=== PATIENT | male | born 1965 | race Caucasian/White ===

== ENCOUNTER → 2017-05-04 11:30 | Outpatient (CLI) | payer MEDICARE, MEDICAID, SELFPAY ==
--- NOTE | 2017-05-04 11:39 | XR_ITS ---
XR knee LT 3V HISTORY: Post traumatic pain ITS.REASON: LEFT KNEE PAIN DUE TO INJURY ORDERING PHYSICIAN: Augustus Patton MD PATIENT AGE: 51 years COMPARISON: None FINDINGS: No fracture or dislocation. No lytic or blastic change. Normal mineralization. No significant arthritic changes evident. Very minimal spurring noted along the posterior patella. Joint spaces are well-preserved. No other significant findings IMPRESSION: No acute finding
== END ==
PROVIDERS: PCP Family Medicine; Visit Provider Family Medicine
DX: G89.21 Chronic pain due to trauma (principal)
CPT/HCPCS: 73562

== ENCOUNTER → 2017-07-14 11:46 | Outpatient (POV) | payer MEDICARE, MEDICAID, SELFPAY | PROVIDERS: Family Provider Family Medicine; PCP Family Medicine; Visit Provider Podiatrist | DX: Z00.00 Encounter for general adult medical examination without abnormal findings (principal) ==

== ENCOUNTER → 2017-08-07 09:21 | Outpatient (CLI) | payer MEDICARE, SELFPAY ==
--- NOTE | 2017-08-07 09:30 | XR_ITS ---
XR femur LT 2V CLINICAL INDICATION: Left femur pain ITS.REASON: LT HIP PAIN ORDERING PHYSICIAN: Augustus Patton MD PATIENT AGE: 51 years FINDINGS: No fracture or dislocation or significant anomalies evident. IMPRESSION: Negative left femur
--- NOTE | 2017-08-07 09:30 | XR_ITS ---
XR hip LT 2-3V w/pelvis HISTORY: ITS.REASON: LT HIP PAIN ORDERING PHYSICIAN: Augustus Patton MD PATIENT AGE: 51 years COMPARISON: 10/19/2010 FINDINGS: No fracture or dislocation is evident. No significant degenerative change. No lytic or blastic change. Unremarkable soft tissues Extensive postsurgical changes of the lumbosacral area as before. Incidental prostate calcifications IMPRESSION: No acute finding with no change in the pelvis and left hip
== END ==
PROVIDERS: PCP Family Medicine; Visit Provider Family Medicine
DX: M25.552 Pain in left hip (principal)
CPT/HCPCS: 73502; 73552

== ENCOUNTER 2018-08-22 10:00 | Outpatient (RCR) | payer MEDICARE, SELFPAY ==
--- NOTE | 2018-05-03 10:10 | HMH.PTOPWND ---
Rehab Outpt Wound Evaluation Rehab OP Wound Evaluation Start: 05/03/18 09:24 Freq: Status: Active Protocol: Document 05/03/18 09:57 ANDREEA (Rec: 05/03/18 10:10 ANDREEA [id number]) Electronically Signed By Fransisco Noguera, PT 05/03/18 09:57 Subjective/History History History Pt is 52 yowm who presents with right anterior knee wound x ~3-4 mos after wearing my leg brace way too long one day . He reports he was using his own supply of santyl on his wound, which was helping, but then began to make the wound larger. His wound appears superficial at this point an has minimal serous drainage. He has hx of partial paraplegia requiring a long leg brace at all times for ambulation and has hx of wounds in the past that all healed well. Wound Eval Wound Right Anterior Knee Wound Type Abrasion Is This a Chronic Wound Yes Wound Length (cm) 2.2 Wound Width (cm) 5.0 Wound Bed Appearance [place] Percentage Granulated (%) 100 Wound Margins Description Well Defined Surrounding Tissue Appearance [place] Drainage Description Serous Drainage Amount Small Packing Type Collagen Primary Dressing Composite Wound Debridement Method Forceps Wound Debridement Amount of Tissue Minimal Removed Dressing Change Patient Tolerance Tolerated Well Wound Problems/Impairments Impairments Problems/Impairmments Increased Edema Wound Care Needs Impaired Self Care/Self Management Prognosis Rehab Potential Good Clinical Impression Consistent with Diagnosis Yes Short Term Goals Decrease Wound Area Yes: by 25% Patient to be Ind w/ Home Wound Care/ Yes Dressing Changes Care Home Goals Number of Weeks 8 Decrease Wound Area Yes: by 75% Patient to be Ind w/ Home Wound Care/ Yes Dressing Changes Outpatient Therapy Plan of Care Treatment Plan May Include Therapeutic Exercise Including Home Yes Exercise Program Manual Therapy Techniques Yes Neuromuscular Re-education Yes Orthotics/Bracing/Splinting Yes Wound Care
--- NOTE | 2018-06-26 11:02 | HMH.RHREAS ---
Rehab Reassessment Rehab OP Re-assessment Start: 06/26/18 10:59 Freq: Status: Active Protocol: Document 06/26/18 10:59 ANDREEA (Rec: 06/26/18 11:02 ANDREEA [id number]) Electronically Signed By Fransisco Noguera, PT 06/26/18 10:59 Rehab Re-assessment Subjective Subjective Pt with no new c/o today, feels his right knee wound is improving. Objective Objective Notes Rioght knee wound: Length = 1. 6 cm, Width = 5.2 cm. Assessment Progress Assessment Progressing as Expected Assessment Notes No purulent drainage noted, healing steadily with improving granulation tissue. Patient goals met none Goals Not Met ST,2 LT,2 Revised Goals none Plan Plan Continue per initial POC Frequency of Therapy 1x/wk Duration of therapy 8 wks. Time and Billing Re-Eval Time 15 Re-Eval Billing Units 1 PHYSICIAN CERTIFICATION: I certify the specified therapy services for Temo Poon are required, authorized, and reviewed every 30 days.
--- NOTE | 2018-08-01 13:28 | HMH.RHREAS ---
Rehab Reassessment Rehab OP Re-assessment Start: 06/26/18 10:59 Freq: Status: Active Protocol: Document 08/01/18 13:26 ANDREEA (Rec: 08/01/18 13:28 ANDREEA [id number]) Electronically Signed By Fransisco Noguera, PT 08/01/18 13:26 Rehab Re-assessment Subjective Subjective Pt reports no new c/o today, feels like his wound is not draining as much. Objective Objective Notes Right anterior knee wound: Length= 2.0 cm, Width= 6.3 cm. Assessment Progress Assessment Progressing as Expected Assessment Notes No purulent drainage noted, healing steadily with improving granulation tissue, no maceration noted. Patient goals met none Goals Not Met ST,2 LT,2 Revised Goals none Plan Plan Continue per initial POC Frequency of Therapy 1x/wk Duration of therapy 8 wks. Time and Billing Re-Eval Time 15 Re-Eval Billing Units 1 PHYSICIAN CERTIFICATION: I certify the specified therapy services for Temo Antonio Poon are required, authorized, and reviewed every 30 days.
== END 2018-08-22 10:05 | disposition home or self-care (01) ==
LOC: PT 10:00
PROVIDERS: Visit Provider Family Medicine
DX: S81.001D Unspecified open wound, right knee, subsequent encounter (principal)
CPT/HCPCS: 97162; 97164; 97597

== ENCOUNTER 2019-03-06 23:54 | Inpatient (IN) ==
--- NOTE | 2019-03-07 00:03 | Emergency Department Note ---
ED Disposition Clinical Impression: Acute exacerbation of chronic obstructive airways disease, RBBB, Obesity (BMI 30.0-34.9), SIRS (systemic inflammatory response syndrome) Community acquired pneumonia Qualifiers: Laterality: unspecified laterality Qualified Code(s): J18.9 - Pneumonia, unspecified organism Disposition: Admitted As Inpatient Condition on Discharge: Serious - Critical Care Critical Care Time: No Attestation: On , the high probability of a clinically significant, sudden or life threatening deterioration of the following system(s) required my full and direct attention, intervention and personal management. The time I documented below is in addition to time spent performing reported procedures but includes the following listed in this critical care notation. Medical Decision Making - Medical Records Medical records reviewed: Yes: I reviewed the patient's medical records. - Sp Inquiry Pt receiving controlled substance: No Vital Signs: 03/07/19 00:03 Temperature 98.0 F Temperature Source Oral Pulse Rate [Right Brachial] 112 H Respiratory Rate 26 H Blood Pressure [Right Arm] 188/102 H Blood Pressure Mean [Right Arm] 130 Blood Pressure Source [Right Arm] Manual Cuff/ Palpation 02 Sat by Pulse Oximetry 79 L Oxygen Delivery Method Room Air - Lab Data Lab results reviewed: Yes: I reviewed the patient's lab results. Lab Results 03/06/19 23:50: WBC 12.2 H, RBC 6.20, Hgb 17.6, Hct 57.2 H, MCV 92.3, MCH 28.4, MCHC 30.8 L, RDW 14.1, Plt Count 199, MPV 7.9, Neut % (Auto) 68.9, Lymph % (Auto) 21.4, [place] % (Auto) 8.2, Eos % (Auto) 0.8, Baso % (Auto) 0.7, Neut # (Auto) 8.4 H, Lymph # (Auto) 2.6, [place] # (Auto) 1.0, Eos # (Auto) 0.1, Baso # (Auto) 0.1 03/06/19 23:50: Sodium 142, Potassium 3.4 L, Chloride 102, Carbon Dioxide 32, Anion Gap 11.4, BUN 12, Creatinine 0.59 L, Estimated Creat Clear 214, Estimated GFR 145, Est GFR ( Amer) 175, Glucose 133 H, Calcium 8.1 L, Troponin I < 0.02 03/06/19 23:50: B-Natriuretic Peptide 18 03/06/19 23:50: Lactate 1.1 03/07/19 00:00: Total Bilirubin 0.2, Direct Bilirubin 0.1, Indirect Bilirubin 0.1, AST 27, ALT 26, Alkaline Phosphatase 98, Total Protein 7.1, Albumin 3.0 L 03/07/19 00:40: Urine Color Yellow, Urine Appearance Slightly cloudy, Urine pH 6.0, Ur Specific [place] >= 1.030, Urine Protein 3+, Urine Glucose (UA) 3+, Urine Ketones Negative, Urine Blood 1+, Urine Nitrate Positive, Urine Bilirubin Negative, Urine Urobilinogen 0.2, Ur Leukocyte Esterase Negative, Urine RBC 10- 20, Urine WBC 3-5, Urine Bacteria 1+, Urine Mucus 1+ 03/07/19 01:43: Influenza Type A Ag Negative, Influenza Type B Ag Negative 03/07/19 01:49: Specimen Source Right radial, O2 % 32, ABG pH 7.36, ABG pCO2 60.1 H, ABG pO2 44.2 L, ABG HCO3 33.1 H, ABG Total CO2 35.0 H, ABG O2 Saturation 83 L*, ABG Base Excess 7.6 H, Antonio Test Acceptable Result diagrams: 03/06/19 23:50 03/06/19 23:50 Orders (Tests/Meds): ED MEDICATIONS Generic Name Dose Route Start Last Admin Trade Name Randyq PRN Reason Stop Dose Admin Azithromycin 500 mg/ Sodium 250 mls @ 250 mls/hr 03/07/19 02:00 03/07/19 02:45 Chloride IV 03/21/19 01:59 250 mls/hr Q24H JUNE Administration Protocol Ceftriaxone Sodium 1 gm/ 50 mls @ 100 mls/hr 03/07/19 02:00 03/07/19 01:51 Sodium Chloride IV 03/21/19 01:59 100 mls/hr Q24H JUNE Administration Protocol Ioversol 70 ml 03/07/19 03:06 03/07/19 03:07 Rad-Optiray 240 100ml Vial IV 03/07/19 03:07 70 ml ONCE ONE Administration Levalbuterol HCl 1.25 mg 03/07/19 02:14 03/07/19 02:20 Xopenex 1.25mg/3ml Neb IH 04/06/19 02:13 1.25 mg TIDP PRN Administration Shortness Of Breath Sodium Chloride 10 ml 03/07/19 03:06 03/07/19 03:07 Rad-Saline Flush 10ml Syringe IV 03/07/19 03:07 10 ml ONCE ONE Administration Discontinued Medications Generic Name Dose Route Start Last Admin Trade Name Freq PRN Reason Stop Dose Admin Hydrocodone Bitart/Acetaminophen 1 tab 03/07/19 01:47 03/07/19 01:50 [place] 7.5/325mg Tablet PO 03/07/19 01:48 1 tab ONCE ONE Administration Aspirin 324 mg 03/06/19 23:56 03/06/19 23:58 Aspirin 81mg Chewable Tablet PO 03/06/19 23:57 324 mg ONCE ONE Administration Furosemide 40 mg 03/06/19 23:56 03/06/19 23:59 Lasix 40mg/4ml Vial IV 03/06/19 23:57 40 mg ONCE ONE Administration Methylprednisolone Sodium Succinate 125 mg 03/07/19 01:47 03/07/19 01:50 Solu-Medrol 125mg/2ml Vial IV 03/07/19 01:48 125 mg ONCE ONE Administration Nitroglycerin 1 gm 03/06/19 23:56 03/06/19 23:59 Nitroglycerin 1 Inch Oint Udp TD 03/06/19 23:57 1 gm ONCE ONE Administration ORDERS Category Date Time Status Troponin I Q3H Lab 03/07/19 03:00 Ordered Troponin I Q3H Lab 03/07/19 06:00 Ordered Blood Culture Stat Micro 03/06/19 23:50 Received - Radiology Data #1 Image(s): Chest Image Reviewed: Yes I reviewed the patient's radiology image Preliminary Findings: Abnormal (chf) - CT Data CT Scan: Chest Time Received: 04:[address] Reviewed: Yes: I have viewed the radiologist's interpretation Preliminary Findings: Abnormal (see report ) - ECG Data Tracing #1 Normal Sinus Rhythm: Yes Ischemic changes: non-specific ST-T wave changes Conduction abnormalities present: RBBB - MELBA Score for Non-Stemi Age of Patient: 50-59 years old Heart Rate: 110-149 bpm Systolic Blood Pressure: 160-199 mmHg Serum Creatinine: 0.40-0.79 mg/dl CHF [place] Class: I-No CHF Other Risk Factors: None Non-Stemi Risk Score: 79 Resp/SOB HPI - General Chief Complaint: Chest Pain Stated Complaint: chest pain Time Seen by Provider: 03/07/19 00:10 Mode of Arrival: Ambulatory Source of Information: Patient, Medical Record Limitations: No Limitations - History of Present Illness pt with progressive sob with chest pain which started tonight - hx of copd MD Complaint: shortness of breath Onset (ago): hour(s) Severity: moderate Consistency/Duration: intermittent Known history of: COPD Associated symptoms: denies other symptoms - Related Data Home oxygen amount: none Home Medications Medication Instructions Recorded Confirmed alprazolam 1 mg tablet 1 mg PO NEEDED PRN 15 Days tab 10/12/17 03/07/19 amlodipine 10 mg tablet 10 mg PO DAILY 30 Days tab 10/12/17 03/07/19 dutasteride 0.5 mg capsule 1 tab PO DAILY 30 Days 10/12/17 03/07/19 gabapentin 300 mg capsule 300 mg PO DAILY 30 Days cap 10/12/17 03/07/19 glipizide 5 mg tablet 5 mg PO DAILY 30 Days tab 10/12/17 03/07/19 labetalol 100 mg tablet 100 mg PO DAILY 30 Days tab 10/12/17 03/07/19 lisinopril 40 mg tablet 40 mg PO DAILY 30 Days tab 10/12/17 03/07/19 methadone 10 mg tablet 20 mg PO Q4H 30 Days tab 10/12/17 03/07/19 omeprazole 40 mg capsule,delayed 40 mg PO DAILY 30 Days cap 10/12/17 03/07/19 release tiotropium bromide 18 mcg capsule 1 spray INHALATION DAILY 30 Days 10/12/17 03/07/19 with inhalation device Allergies Allergy/AdvReac Type Severity Reaction Status Date / Time butorphanol [From STADOL] Allergy Unknown Verified 03/07/19 00:09 ketorolac [From TORADOL] Allergy Unknown Verified 03/07/19 00:09 morphine [MORPHINE] Allergy Unknown Verified 03/07/19 00:09 - Well's Criteria PE Score Clinical signs/symptoms of DVT: No PE is #1 diagnosis or equally likely: Yes Heart rate is > 100: Yes Immobile at least 3 days, or surgery in past 4 wks: No Previously, obj. diagnosed PE or DVT: No Hemoptysis: No Malignancy w/Rx within 6mo, or palliative: No PE Score: 4 [facility] History - Hepatitis A Screen Attestation statement:: This patient has been screened for Hepatitis A risk factors. I have reviewed the patient's past medical history: Yes Medical History: Reports:: Anxiety, Diabetes Mellitus Type 2, Hypertension Other Medical History: Reports: Arthritis Comment: Paraplegic Laterality Cases: Amputation: Yes Fractures: No Comment: Back surgeries x6, Bilat knee scope, bilat shoulder scope - Social History Smoking Status: Former smoker Alcohol Intake: former Alcohol Intake Frequency:: other Substance Use Type: denies use Occupational Status: retired - Psychiatric History Pschychiatric History:: Reports:: Anxiety Family Hx:: Stroke, Hypertension, Diabetes ROS Obtained: Yes All systems reviewed & no additional complaints - Constitutional Constitutional: Denies fever(s) - Eyes Eyes: Denies change in vision - ENT Ears, Nose, Mouth, and Throat: Denies pain with swallowing, Denies sore throat - Cardiovascular Cardiovascular: Reports as per HPI, Reports chest pain, Reports dyspnea - Respiratory Respiratory: Yes cough, No coughing up blood - Gastrointestinal Gastrointestingal: Denies: vomiting - Genitourinary Male Genitourinary: Denies hematuria - Musculoskeletal Musculoskeletal: Denies joint pain - Integumentary/Breasts Skin/Breast: Denies rash - Neurologic Neurologic: Denies seizure-like activity Physical Exam - General General appearance: alert - Head Head exam: normocephalic - Eye Eye exam: Present: PERRL, EOMI. Absent: scleral icterus - ENT ENT exam: Present: mucous membranes dry - Neck Neck exam: Present: trachea midline - Respiratory Respiratory exam: Present: wheezes, other (rhochi ). Absent: respiratory distress - Cardiovascular Cardiovascular exam: Present: regular rate, systolic murmur - Abdominal Exam Abdominal exam: Present: soft - Extremities Exam Extremities exam: Present: pedal edema - Neurological Exam Neurological exam: Present: alert, CN II-XII intact - Psychiatric Psychiatric exam: Present: normal affect - Skin Skin exam: Absent: rash
[2019-03-07 00:20] LABS: Basophils # 0.1 K/mm3 (0-0.2); Basophils % 0.7 % (0.1-2.0); Eosinophils # 0.1 K/mm3 (0.0-0.4); Eosinophils % 0.8 % (0.1-12.0); Hematocrit 57.2 % (42.0-52.0); Hemoglobin 17.6 g/dL (14.1-18.0); Lymphocytes # 2.6 K/mm3 (0.7-4.5); Lymphocytes % 21.4 % (10-50); Mean Corpuscular HGB Conc 30.8 g/dL (31.8-35.4); Mean Corpuscular Volume 92.3 fl (80-94); Mean Platelet Volume 7.9 fl (7.4-10.4); Monocytes % 8.2 % (1.7-9.3); Neutrophils # 8.4 K/mm3 (1.8-7.8); Neutrophils % 68.9 % (37.0-80.0); Platelet Count 199 K/mm3 (142-424); Red Cell Distribution Width 14.1 % (11.5-17.5); White Blood Count 12.2 K/mm3 (4.8-10.8)
[2019-03-07 00:32] LABS: Anion Gap 11.4 mEq/L (5-15); Blood Urea Nitrogen 12 mg/dL (7-18); Calcium 8.1 mg/dL (8.5-10.1); Carbon Dioxide 32 mmol/L (21.0-32.0); Chloride 102 mmol/L (98-107); Glucose 133 mg/dL (74-106); Sodium 142 mmol/L (136-145)
[2019-03-07 00:52] LABS: Microscopic, Urine URINE MICROSCOPIC (MICROSCOPIC)
[2019-03-07 00:54] LABS: Bilirubin,Urine Negative (Negative); Blood, Urine 1+ (Negative); Color,Urine YELLOW (Yellow); Glucose,Urine (UA) 3+ (Negative); Ketones,Urine Negative (Negative); Leukocyte Esterase,Urine Negative (Negative); Protein,Urine 3+ (Negative); Specific Gravity, Urine >= 1.030 (1.005-1.030); Urobilinogen,Urine 0.2 EU/dl (0.2)
[2019-03-07 00:55] LABS: Appearance,Urine Slightly Cloudy (Clear)
[2019-03-07 01:01] LABS: Bacteria,Urine 1+ /lpf; Mucus,Urine 1+ /lpf
[2019-03-07 02:08] LABS: Bilirubin,Direct 0.1 mg/dL (0.0-0.2); Bilirubin,Indirect 0.1 mg/dL (0.0-0.9); Bilirubin,Total 0.2 mg/dL (0.2-1.0); Total Protein,Serum 7.1 gm/dL (6.4-8.2)
[2019-03-07 02:09] LABS: ABG Base Excess 7.6 mmol/L (-2.4-2.3); ABG HCO3 33.1 mmhg (22.0-26.0); ABG Oxygen Saturation 83 % (90-100); ABG PH 7.36 mmol/L (7.35-7.45)
[2019-03-07 02:10] LABS: Oxygen 32 %
[2019-03-07 02:11] LABS: Allen's Test ACCEPTABLE
[2019-03-07 02:12] LABS: ABG PCO2 60.1 mmhg (35.0-45.0)
[2019-03-07 02:13] LABS: ABG PO2 44.2 mmhg (80-100)
[2019-03-07 06:20] LABS: Anion Gap 7.8 mEq/L (5-15)
[2019-03-07 06:23] LABS: Basophils % 0.3 % (0.1-2.0); Eosinophils % 0.1 % (0.1-12.0); Hematocrit 56.7 % (42.0-52.0); Hemoglobin 17.7 g/dL (14.1-18.0); Lymphocytes # 0.8 K/mm3 (0.7-4.5); Lymphocytes % 6.2 % (10-50); Mean Corpuscular HGB Conc 31.3 g/dL (31.8-35.4); Mean Corpuscular Volume 90.8 fl (80-94); Mean Platelet Volume 7.8 fl (7.4-10.4); Monocytes # 0.4 K/mm3 (0.1-1.0); Monocytes % 3.2 % (1.7-9.3); Neutrophils # 11.4 K/mm3 (1.8-7.8); Neutrophils % 90.2 % (37.0-80.0); Platelet Count 198 K/mm3 (142-424); Red Blood Count 6.24 M/mm3 (4.60-6.20); Red Cell Distribution Width 13.9 % (11.5-17.5); White Blood Count 12.6 K/mm3 (4.8-10.8)
--- NOTE | 2019-03-07 07:09 | History & Physical Report ---
*Admission Date: 03/07/19 *Chief complaint: Shortness of breath and chest pain *History of present illness: 53-year-old male with hypertension, hyperlipidemia, uncontrolled diabetes presented to the emergency department from home via private vehicle with progressive dyspnea and chest pain. Patient reports he had been feeling ill during the day with symptoms of an upper respiratory infection to include cough with yellow-michelle sputum production, low-grade fevers, chills and increasing dyspnea. His dyspnea did not improve despite use of home nebulized albuterol and Ventolin inhaler. During the day he also began to develop chest tightness that was nonradiating. Ultimately he became so short of breath he requested to go to the emergency department where he was transported by his . Patient believes in route he lost consciousness for no more than a minute. Once he arrived in the emergency department he underwent evaluation. In the emergency department patient's chest x-ray showed what appeared to be bilateral pneumonia and he was hypoxemic on a blood gas. Patient met criteria for treatment of severe sepsis which was initiated. Patient was diuresed with Lasix and this produced about 2 L of urine which patient feels like improved his breathlessness. Because of his oxygen requirement he was placed on Vapotherm and remains on that at this time. At present he is feeling better than when he presented. 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 Laterality Cases: Bilateral: Tonsillectomy Amputation: Yes Fractures: No Comment: Lumbar spine surgery due to traumatic lumbar fractures - *Social History Educational Level: Completed College Smoking Status: Former smoker Tobacco Type: cigarettes # Packs/Day (cigarettes): 1 Alcohol Intake: former Alcohol Intake Frequency:: other Substance Use Type: denies use *Occupational Status:: employed, retired Housing: house Household Members: spouse *Travel in the last 8 weeks: Inside the [place] - Psychiatric History Pschychiatric History:: Reports:: Anxiety Family Hx:: Stroke, Hypertension, Diabetes Review of Systems - Review of Systems Review of systems:: pertinent systems reviewed and negative unless documented below - *Neurologic Denies seizure-like activity Meds Home Medications Medication Instructions Recorded Confirmed Type alprazolam 1 mg tablet 1 mg PO NEEDED PRN 15 Days tab 10/12/17 03/07/19 History amlodipine 10 mg tablet 10 mg PO DAILY 30 Days tab 10/12/17 03/07/19 History dutasteride 0.5 mg capsule 1 tab PO DAILY 30 Days 10/12/17 03/07/19 History gabapentin 300 mg capsule 300 mg PO DAILY PRN 30 Days cap 10/12/17 03/07/19 History labetalol 100 mg tablet 100 mg PO DAILY 30 Days tab 10/12/17 03/07/19 History lisinopril 40 mg tablet 40 mg PO DAILY 30 Days tab 10/12/17 03/07/19 History methadone 10 mg tablet 20 mg PO Q4H 30 Days tab 10/12/17 03/07/19 History omeprazole 40 mg capsule,delayed 40 mg PO DAILY 30 Days cap 10/12/17 03/07/19 History release tiotropium bromide 18 mcg capsule 1 spray INHALATION DAILY 30 Days 10/12/17 03/07/19 History with inhalation device Insulin NPH Hum/Reg Insulin Hm 20 unit SQ DAILY 03/07/19 03/07/19 History [Novolin 70-30 Flexpen] Allergies Allergy/AdvReac Type Severity Reaction Status Date / Time butorphanol [From STADOL] Allergy Unknown Verified 03/07/19 00:09 ketorolac [From TORADOL] Allergy Unknown Verified 03/07/19 00:09 morphine [MORPHINE] Allergy Unknown Verified 03/07/19 00:09 Exam Vital signs and Labs for Last 24 Hours: Temp Pulse Resp BP Pulse Ox 97.6 F 99 H 20 163/105 H 97 03/07/19 04:59 03/07/19 05:51 03/07/19 04:59 03/07/19 04:59 03/07/19 05:51 Laboratory Results - last 24 hr 03/06/19 23:50: WBC 12.2 H, RBC 6.20, Hgb 17.6, Hct 57.2 H, MCV 92.3, MCH 28.4, MCHC 30.8 L, RDW 14.1, Plt Count 199, MPV 7.9, Neut % (Auto) 68.9, Lymph % (Auto) 21.4, [place] % (Auto) 8.2, Eos % (Auto) 0.8, Baso % (Auto) 0.7, Neut # (Auto) 8.4 H, Lymph # (Auto) 2.6, [place] # (Auto) 1.0, Eos # (Auto) 0.1, Baso # (Auto) 0.1 03/06/19 23:50: Sodium 142, Potassium 3.4 L, Chloride 102, Carbon Dioxide 32, Anion Gap 11.4, BUN 12, Creatinine 0.59 L, Estimated Creat Clear 214, Estimated GFR 145, Est GFR ( Amer) 175, Glucose 133 H, Calcium 8.1 L, Troponin I < 0.02 03/06/19 23:50: B-Natriuretic Peptide 18 03/06/19 23:50: Lactate 1.1 03/07/19 00:00: Total Bilirubin 0.2, Direct Bilirubin 0.1, Indirect Bilirubin 0.1, AST 27, ALT 26, Alkaline Phosphatase 98, Total Protein 7.1, Albumin 3.0 L 03/07/19 00:40: Urine Color Yellow, Urine Appearance Slightly cloudy, Urine pH 6.0, Ur Specific [place] >= 1.030, Urine Protein 3+, Urine Glucose (UA) 3+, Urine Ketones Negative, Urine Blood 1+, Urine Nitrate Positive, Urine Bilirubin Negative, Urine Urobilinogen 0.2, Ur Leukocyte Esterase Negative, Urine RBC 10- 20, Urine WBC 3-5, Urine Bacteria 1+, Urine Mucus 1+ 03/07/19 01:43: Influenza Type A Ag Negative, Influenza Type B Ag Negative 03/07/19 01:49: Specimen Source Right radial, O2 % 32, ABG pH 7.36, ABG pCO2 60.1 H, ABG pO2 44.2 L, ABG HCO3 33.1 H, ABG Total CO2 35.0 H, ABG O2 Saturation 83 L*, ABG Base Excess 7.6 H, Antonio Test Acceptable 03/07/19 03:40: Troponin I 0.03 03/07/19 05:48: Troponin I 0.04 03/07/19 05:48: WBC 12.6 H, RBC 6.24 H, Hgb 17.7, Hct 56.7 H, MCV 90.8, MCH 28.4, MCHC 31.3 L, RDW 13.9, Plt Count 198, MPV 7.8, Neut % (Auto) 90.2 H, Lymph % (Auto) 6.2 L, [place] % (Auto) 3.2, Eos % (Auto) 0.1, Baso % (Auto) 0.3, Neut # (Auto) 11.4 H, Lymph # (Auto) 0.8, [place] # (Auto) 0.4, Eos # (Auto) 0.0, Baso # (Auto) 0.0 03/07/19 05:48: Sodium 142, Potassium 3.8, Chloride 101, Carbon Dioxide 37 H, Anion Gap 7.8, BUN 10, Creatinine 0.69 L, Estimated Creat Clear 183, Estimated GFR 121, Est GFR ( Amer) 146, Glucose 192 H D, Calcium 8.0 L, Magnesium 1.4 I & O for Last 24 hours: Intake & Output 03/04/19 03/05/19 03/06/19 03/07/19 11:59 11:59 11:59 11:59 Intake Total 560 / 560 Output Total 2300 / 2300 Balance -1740 / -1740 Weight 225 lb Narrative: Patient is in bed and appears comfortable and is not showing any signs of respiratory distress. External ears are normal. Pupils are reactive to light. Oropharynx is moist. Neck is without carotid bruits or jugular venous distention. Lungs have distant breath sounds primarily on the right with rhonchi at both bases and mixed wheezing bilaterally. Heart has a regular rate and rhythm with no murmur auscultated. Abdomen is soft and obese. Extremities are warm to the touch and compression stockings are in place. There is no edema. Assessment and Plan (1) Acute exacerbation of chronic obstructive airways disease Current visit: Yes Status: Acute Category: Medical Code(s): J44.1 - Chronic obstructive pulmonary disease with (acute) exacerbation Continue IV steroids and IV Rocephin and azithromycin. Repeat chest x-ray later today to assess the pneumonia. As patient feels like he is improved significantly since diuresis there may be an element of congestive heart failure given his chest x-ray the abnormal appearance. (2) Community acquired pneumonia Current visit: Yes Status: Acute Qualifiers: Laterality: unspecified laterality Qualified Code(s): J18.9 - Pneumonia, unspecified organism Category: Medical Code(s): J18.9 - Pneumonia, unspecified organism (3) Obesity (BMI 30.0-34.9) Current visit: Yes Status: Acute Category: Medical Code(s): E66.9 - Obesity, unspecified (4) RBBB Current visit: Yes Status: Acute Category: Medical Code(s): I45.10 - Unspecified right bundle-branch block (5) SIRS (systemic inflammatory response syndrome) Current visit: Yes Status: Acute Category: Medical Code(s): R65.10 - Systemic inflammatory response syndrome (SIRS) of non-infectious origin without acute organ dysfunction (6) Monoplegia of right lower extremity Current visit: Yes Status: Acute Category: Medical Code(s): G83.11 - Monoplegia of lower limb affecting right dominant side (7) Diabetes mellitus with hyperglycemia Current visit: Yes Status: Acute Category: Medical Code(s): E11.65 - Type 2 diabetes mellitus with hyperglycemia Continue home regimen of insulin (8) Cigarette smoker Current visit: Yes Status: Acute Category: Medical Code(s): F17.210 - Nicotine dependence, cigarettes, uncomplicated (9) Hypertension Current visit: Yes Status: Acute Category: Medical Code(s): I10 - Essential (primary) hypertension (10) Hyperlipidemia Current visit: Yes Status: Acute Category: Medical Code(s): E78.5 - Hyperlipidemia, unspecified (11) Chronic anxiety Current visit: Yes Status: Acute Category: Medical Code(s): F41.9 - Anxiety disorder, unspecified (12) Chronic pain syndrome Current visit: Yes Status: Acute Category: Medical Code(s): G89.4 - Chronic pain syndrome (13) Pain, 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 Current visit: Yes Status: Acute Category: Medical Code(s): G89.21 - Chronic pain due to trauma Continue use of methadone.
[2019-03-07 08:09] LABS: Lymphocytes % 5 % (10-50); Monocytes % 4 % (2-9); Neutrophils % 89 % (42-76); RBC Morphology Normal; Total Cells Counted 100
--- NOTE | 2019-03-07 10:01 | Pharmacy Consult Notes ---
[facility] Pharmacy VTE Monitoring - Patient Demographics Admission date: 03/06/19 Report Date: 03/07/19 Time: 10:01 Allergies/Adverse Reactions: Patient Allergies butorphanol [From STADOL] Allergy (Unknown, Verified 03/07/19 00:09) ketorolac [From TORADOL] Allergy (Unknown, Verified 03/07/19 00:09) morphine [MORPHINE] Allergy (Unknown, Verified 03/07/19 00:09) Height: 1.75 m Weight: 102.058 kg Patient Problems: Current Active Problems Acute exacerbation of chronic obstructive airways disease (Acute) RBBB (Acute) Obesity (BMI 30.0-34.9) (Acute) Community acquired pneumonia (Acute) SIRS (systemic inflammatory response syndrome) (Acute) Monoplegia of right lower extremity (Acute) Diabetes mellitus with hyperglycemia (Acute) Cigarette smoker (Acute) Hypertension (Acute) Hyperlipidemia (Acute) Chronic anxiety (Acute) Chronic pain syndrome (Acute) Pain, 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 (Acute) - VTE Risk Labs: VTE Related Lab Results Hgb 17.7 g/dL (14.1-18.0) 03/07/19 05:48 Hct 56.7 % (42.0-52.0) H 03/07/19 05:48 Plt Count 198 K/mm3 (142-424) 03/07/19 05:48 BUN 10 mg/dL (7-18) 03/07/19 05:48 Creatinine 0.69 mg/dL (0.70-1.30) L 03/07/19 05:48 Estimated Creat Clear 183 mL/min (50-200) 03/07/19 05:48 VTE Score: 5 VTE Risk Level: Low Risk - Prophylaxis VTE Prophylaxis Ordered?: Yes Types of VTE Prophylaxis: TEDS Knee High Location of Applied Device: Bilateral Lower Extremeties - VTE Diagnosis Confirmed Treatment or plan recommended: Continue Current Treatment
--- NOTE | 2019-03-07 16:42 | Cardiology Report ---
APPROVED REPORT EXAM: Comprehensive 2D, Doppler, and color-flow Echocardiogram Quilting Supervisor: Joyce Giraldo CRT Ht: 5 ft 9 in Wt: 225lbs BSA: 2.17 BP: 163/105 mmHg Indications: Chest Pain, COPD, Murmur, Shortness of Breath 2D Dimensions LVOT 1.99 cm (M/F) 1.5-2.5 M-Mode Dimensions RVDd 2.46 cm (0.9-2.6)LVDd 6.42 cm (3.5-5.7) LVDs 5.29 cm (3.5-5.7)IVSd 1.89 cm (0.6-1.1) PWd 0.85 cm (0.6-1.1)EF (Teich) 35.80% FS 17.60% EDV (Teich) 210.00 mL ESV (Teich) 134.80 mL Left Ventricle Left atrium is mildly enlarged, left ventricle is normal size, mild concentric left ventricular hypertrophy, visually estimated ejection fraction 55% with no regional wall motion abnormality. Diastolic parameters are inconclusive. Right Ventricle Right atrium right ventricular mildly enlarged with normal contractility. Aortic Valve Aortic valve is thickened and calcified without aortic stenosis or aortic insufficiency. Mitral Valve Mitral valve is grossly normal, there is mild mitral regurgitation. Tricuspid Valve Tricuspid valve is grossly normal, there is mild tricuspid regurgitation. Pulmonic Valve Pulmonic valve is poorly visualized. Great Vessels Aortic root is normal size. Pericardium No significant pericardial effusion noted. Conclusion 1. Mild biatrial enlargement, normal left ventricular size, mild concentric left ventricular hypertrophy, visually estimated ejection fraction 55% with no regional wall motion abnormality, grade 1 diastolic dysfunction seen without tissue Doppler evidence of raise left atrial pressure. 2. Mildly enlarged right ventricle with normal contractility. 3. Mild mitral and tricuspid regurgitation. 4. No significant pericardial effusion noted. Electronically signed by : Monty Syed, 03/07/2019 16:42:17
[2019-03-08 06:20] LABS: Basophils # 0.1 K/mm3 (0-0.2); Basophils % 0.3 % (0.1-2.0); Eosinophils % 0.2 % (0.1-12.0); Hematocrit 52.5 % (42.0-52.0); Hemoglobin 16.9 g/dL (14.1-18.0); Lymphocytes # 1.3 K/mm3 (0.7-4.5); Lymphocytes % 7.6 % (10-50); Mean Corpuscular HGB Conc 32.2 g/dL (31.8-35.4); Mean Corpuscular Volume 91.4 fl (80-94); Mean Platelet Volume 8.9 fl (7.4-10.4); Monocytes % 5.6 % (1.7-9.3); Neutrophils % 86.4 % (37.0-80.0); Platelet Count 220 K/mm3 (142-424); Red Blood Count 5.75 M/mm3 (4.60-6.20); Red Cell Distribution Width 13.8 % (11.5-17.5); White Blood Count 17.3 K/mm3 (4.8-10.8)
--- NOTE | 2019-03-08 06:28 | Progress Note ---
Internal Medicine - PN: Subj *Date: 03/08/19 *Time: 06:25 Interval history: Patient reports improvement in his shortness of breath overnight. He believes getting some quality rest as well as cough that is produced large amounts of green sputum intermittently. He remains on Vapotherm. Pulse rate has normalized. Exam Vital signs and Labs for Last 24 Hours: Temp Pulse Resp BP Pulse Ox 98.2 F 89 22 134/96 H 93 L 03/08/19 04:00 03/08/19 06:01 03/08/19 04:00 03/08/19 04:00 03/08/19 06:01 Laboratory Results - last 24 hr 03/07/19 05:21: POC Glucose 181 H 03/07/19 05:48: Troponin I 0.04 03/07/19 05:48: Mycoplasma pneumon IgM Non-reactive 03/07/19 05:48: WBC 12.6 H, RBC 6.24 H, Hgb 17.7, Hct 56.7 H, MCV 90.8, MCH 28.4, MCHC 31.3 L, RDW 13.9, Plt Count 198, MPV 7.8, Neut % (Auto) 90.2 H, Lymph % (Auto) 6.2 L, [place] % (Auto) 3.2, Eos % (Auto) 0.1, Baso % (Auto) 0.3, Neut # (Auto) 11.4 H, Lymph # (Auto) 0.8, [place] # (Auto) 0.4, Eos # (Auto) 0.0, Baso # (Auto) 0.0, Total Counted 100, Neutrophils % (Manual) 89 H, Band Neutrophils % 2.0, Lymphocytes % (Manual) 5 L, Monocytes % (Manual) 4, Platelet Estimate Normal, RBC Morphology Normal 03/07/19 05:48: Sodium 142, Potassium 3.8, Chloride 101, Carbon Dioxide 37 H, Anion Gap 7.8, BUN 10, Creatinine 0.69 L, Estimated Creat Clear 183, Estimated GFR 121, Est GFR ( Amer) 146, Glucose 192 H D, Calcium 8.0 L, Magnesium 1.4 03/07/19 08:14: Lactate 1.0 03/07/19 10:45: POC Glucose 233 H 03/07/19 16:18: POC Glucose 204 H 03/07/19 20:38: POC Glucose 189 H 03/08/19 05:14: POC Glucose 180 H I & O for Last 24 hours: Intake & Output 03/05/19 03/06/19 03/07/19 03/08/19 11:59 11:59 11:59 11:59 Intake Total 560 / 560 2102 / 2102 Output Total 2300 / 2300 4650 / 4650 Balance -1740 / -1740 -2548 / -2548 Weight 225 lb Microbiology Reports for the Last 24 Hours: Microbiology 03/07/19 00:40 Urine,Catheterized Urine Culture - Preliminary NO GROWTH AFTER 24 HOURS Narrative: He looks well. Lungs have distant breath sounds with mixed rhonchi and rales best heard posteriorly in the bases. Heart has a regular rate and rhythm. Abdomen is soft and obese. Extremities are without edema. Echocardiogram showed biatrial enlargement but no LV dysfunction. Assessment and Plan (1) Acute exacerbation of chronic obstructive airways disease Current visit: Yes Status: Acute Category: Medical Code(s): J44.1 - Chronic obstructive pulmonary disease with (acute) exacerbation (2) Community acquired pneumonia Current visit: Yes Status: Acute Qualifiers: Laterality: unspecified laterality Qualified Code(s): J18.9 - Pneumonia, unspecified organism Category: Medical Code(s): J18.9 - Pneumonia, unspecified organism (3) Obesity (BMI 30.0-34.9) Current visit: Yes Status: Acute Category: Medical Code(s): E66.9 - Obesity, unspecified (4) RBBB Current visit: Yes Status: Acute Category: Medical Code(s): I45.10 - Unspecified right bundle-branch block (5) SIRS (systemic inflammatory response syndrome) Current visit: Yes Status: Resolved Category: Medical Code(s): R65.10 - Systemic inflammatory response syndrome (SIRS) of non-infectious origin without acute organ dysfunction (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 Category: Medical Code(s): G83.11 - Monoplegia of lower limb affecting right dominant side (7) Diabetes mellitus with hyperglycemia Current visit: Yes Status: Chronic Category: Medical Code(s): E11.65 - Type 2 diabetes mellitus with hyperglycemia (8) Cigarette smoker Current visit: Yes Status: Acute Category: Medical Code(s): F17.210 - Nicotine dependence, cigarettes, uncomplicated (9) Hypertension Current visit: Yes Status: Chronic Category: Medical Code(s): I10 - Essential (primary) hypertension (10) Hyperlipidemia Current visit: Yes Status: Acute Category: Medical Code(s): E78.5 - Hyperlipidemia, unspecified (11) Chronic anxiety Current visit: Yes Status: Acute Category: Medical Code(s): F41.9 - Anxiety disorder, unspecified (12) Chronic pain syndrome Current visit: Yes Status: Acute Category: Medical Code(s): G89.4 - Chronic pain syndrome (13) Pain, 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 Current visit: Yes Status: Chronic Category: Medical Code(s): G89.21 - Chronic pain due to trauma - Assessment and plan all Dx Assessment and Plan for all problems:: 1 repeat chest x-ray today 2. Begin weaning patient from supplemental oxygen. Hopefully within the next 24 hours he could transition to nasal cannula 3. Continue Rocephin and azithromycin as well as intravenous steroids.
[2019-03-08 06:48] LABS: Anion Gap 7.8 mEq/L (5-15); Calcium 7.9 mg/dL (8.5-10.1)
[2019-03-08 07:23] LABS: Lymphocytes % 6 % (10-50); Monocytes % 7 % (2-9); Neutrophils % 85 % (42-76); RBC Morphology Normal; Total Cells Counted 100
--- OUTSIDE RECORDS SUMMARY | 2019-03-08 10:48 | External Medical Summary | Continuity of Care Document ---
:1965 Author Organization [facility] Address [address] [facility] [address] [place] [address] Phone Care Team Providers Name Role Phone Abdi Primary Care Provider Abdi Attending Provider Daniel Rosenberg Attending Provider Allergies, Adverse Reactions, Alerts Allergen Type Severity Reaction Last Verified Status Updated butorphanol Allergy Unknown Yes Active ketorolac Allergy Unknown Yes Active morphine Allergy Unknown Yes Active Medications Medication Status Dose Units Route Sig Qty Days Start End Instruct ions Date Date Methadone Hcl Active 20 MG Oral Q4H October 12, 2017 11:54am Lisinopril Active 40 MG Oral Daily October 12, 2017 11:54am Labetalol Hcl Active 100 MG Oral Twice a October 11:54am Amlodipine Active 10 MG Oral Daily October 11:54am Omeprazole Active 40 MG Oral Daily October 12, 2017 11:55am Gabapentin Active 300 MG Oral Daily October 12, 2017 11:55am Tiotropium Active 1 CAP Inhalatio Daily 30 October [place] n 2017 11:55am Alprazolam Active 1 MG Oral Twice a 15 October day as 2017 11:56am Dutasteride Active 1 TAB Oral Daily October 12, 2017 11:57am Insulin Nph Active 40 UNIT SUBCUTANE At March Hum/Reg Insulin OUS bedtime 2018 nightly 5:23am Albuterol Active 2 PUFFS INHALATIO Every 4 March Sulfate N hours 2018 as 10:24am needed Empagliflozin Active 25 MG Oral Daily March 07, 2019 10:24am Gabapentin Active 600 MG Oral Every March evening 2018 10:24am Hydrochlorothia Active 25 MG Oral Daily March 10:24am Insulin Nph Active 25 UNITS SUBCUTANE Daily March Hum/Reg Insulin OUS 2018 Hm 10:24am Meloxicam Active 15 MG Oral Daily March 07, 2019 10:24am Niacin Active 500 MG Oral Daily March 07, 2019 10:24am Simvastatin Active 40 MG Oral At March bedtime 2018 nightly 10:24am Problems Active Problems Medical Problem Onset Date Status Acute exacerbation of chronic Active obstructive airways disease 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 RBBB Active Hyperlipidemia Active Community acquired pneumonia Active Diabetes mellitus with hyperglycemia Act geoffrey Obesity (BMI 30.0-34.9) Active Pain, 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 Active Cigarette smoker Active Chronic pain syndrome Active Chronic anxiety Active Hypertension Active Inactive/Resolved Problems Medical Problem Onset Date Status SIRS (systemic inflammatory Resolved response syndrome) Procedures Procedure Date Performed Status XR chest 2V March 07, 2019 completed ECG initial [place] March 06, [address] angio chest March 07, 2019 completed XR chest portable March 08, 2019 completed Gram Stain March 08, 2019 completed Sputum Culture March 08, 2019 completed Urine Culture March 07, 2019 active Blood Culture March 06, 2019 active Relevant Diagnostic Tests and/or Laboratory Data Laboratory Results Test Date/Time Result Interpretation Reference Result Perfo rming Range Comment Site White Blood March 17.3 K/mm3 4.8-10.8 Delta: 12.6 [facility], [address] [place] [address] 36 E Count 2018 on [place] [address] 6:03am 03/07/1946 Red Blood March 5.75 M/mm3 4.60-6.20 [facility], [address] [place] [address] 36 E Count 2018 [place] [address]68[address] 6:03am Hemoglobin March 16.9 g/dL 14.1-18.0 [facility], [address] [place] [address] 36 E 2018 [place] [address] 6:03am Hematocrit March 52.5 % 42.0-52.0 [facility], [address] [place] [address] 36 E 2018 [place] [address] 6:03am Mean Rahul 91.4 fl 80-94 [facility], [address] [place] [address] 36 E Corpuscular 2018 [place] [address]19 Volume 6:03am Mean Rahul 29.4 pg 27.0-31.2 [facility], [address] [place] [address] 36 E Corpuscular 2018 [place] [address]288 Hemoglobin 6:03am Mean March 32.2 g/dL 31.8-35.4 [facility], [address] [place] [address] E Corpuscular 2018 [place] 92318 Hemoglobin 6:03am Concent Red Cell Rahul 13.8 % 11.5-17.5 [facility], [address] [place] [address] E Distribution 2018 Jenny [place] 29107 Width 6:03am Platelet Count March 220 K/mm3 142-424 [facility], [address] [place] [address] E 2018 Elsie Onofre31 6:03am Mean Platelet March 8.9 fl 7.4-10.4 [facility], [address] [place] [address] E Volume 2018 Elsie Onofre31 6:03am Neutrophils Rahul 86.4 % 37.0-80.0 [place] [address] E (%) (Auto) 2018 [place] [address]30 6:03am Lymphocytes Rahul 7.6 % 10-50 [place] [address] E (%) (Auto) 2018 [place] [address]50 6:03am Monocytes (%) Rahul 5.6 % 1.7-9.3 [place] [address] E (Auto) 2018 [place] 85486 6:03am Eosinophils Rahul 0.2 % 0.1-12.0 [place] [address] E (%) (Auto) 2018 [place] [address]6680 6:03am Basophils (%) Rahul 0.3 % 0.1-2.0 [facility], [address] [place] [address] E (Auto) 2018 [place] [address]362 6:03am Neutrophils # Rahul 15.0 K/mm3 1.8-7.8 [place] [address] E (Auto) 2018 [place] [address]2631 6:03am Lymphocytes # Rahul 1.3 K/mm3 0.7-4.5 [facility], [address] [place] [address] 36 E (Auto) 2018 [place] [address] 6:03am Monocytes # Rahul 1.0 K/mm3 0.1-1.0 [facility], [address] [place] [address] 36 E (Auto) 2018 [place] [address] 6:03am Eosinophils # Rahul 0.0 K/mm3 0.0-0.4 [facility], [address] [place] [address] 36 E (Auto) 2018 [place] [address] 6:03am Basophils # Rahul 0.1 K/mm3 0-0.2 [facility], [address] [place] [address] E (Auto) 2018 [place] [address]674 6:03am Differential Rahul 100 [facility], [address] [place] [address] 36 E Total Cells 2018 [place] [address] Counted 6:03am Neutrophils % Rahul 85 % 42-76 [facility], [address] [place] [address] 36 E (Manual) 2018 [place] 36785 6:03am Band Rahul 2.0 0-8 [facility], [address] [place] [address] 36 E Neutrophils % 2018 [place] [address]15 6:03am Lymphocytes % Rahul 6 % 10-50 [facility], [address] [place] [address] 36 E (Manual) 2018 [place] [address] 6:03am Monocytes % Rahul 7 % 2-9 [facility], [address] [place] [address] 36 E (Manual) 2018 [place] [address]95 6:03am Platelet Rahul Normal [facility], [address] [place] [address] 36 E Estimate 2018 [place] [address] 6:03am Red Blood Cell Rahul Normal [facility], [address] [place] [address] 36 E Morphology 2018 [place] [address] 6:03am Urine Color Rahul Yellow Yellow [facility], [address] [place] [address] 36 E 2018 [place] [address] 12:40am Urine Rahul Slightly Clear [facility], [address] [place] [address] 36 E Appearance 2018 cloudy [place] [address] 12:40am Urine pH Rahul 6.0 5.0-8.5 [facility], [address] [place] [address] 36 E 2018 [place] [address]14 12:40am Urine Specific Rahul >= 1.030 1.005-1.03 [facility], [address] [place] [address] 36 E [place] 2018 0 [place] [address] 12:40am Urine Protein Rahul 3+ Negative [facility], [address] [place] [address] 36 E 2018 [place] [address]37 12:40am Urine Glucose Rahul 3+ Negative [facility], [address] [place] [address] 36 E (UA) 2018 [place] [address]98[address] 12:40am Urine Ketones Rahul Negative Negative [facility], [address] [place] [address] 36 E 2018 [place] 88793 12:40am Urine Blood Rahul 1+ Negative [facility], [address] [place] [address] 36 E 2018 [place] [address]277 12:40am Urine Nitrate Rahul Positive Negative [facility], [address] [place] [address] 36 E 2018 [place] [address] 12:40am Urine Rahul Negative Negative [facility], [address] [place] [address] 36 E Bilirubin 2018 [place] 04139 12:40am Urine Rahul 0.2 EU/dl [facility], [address] [place] [address] 36 E Urobilinogen 2018 [place] [address]89[address] 12:40am Urine Rahul Negative Negative [facility], [address] [place] [address] 36 E Leukocyte 2018 [place] [address] Esterase 12:40am Urine RBC March 10-20 #/hpf [facility], [address] [place] [address] 36 E 2018 [place] [address] 12:40am Urine WBC March 3-5 #/hpf [facility], [address] [place] [address] 36 E 2018 [place] 75128 12:40am Urine Bacteria Rahul 1+ /lpf NONE [facility], [address] [place] [address] 36 E 2018 [place] [address]4783 12:40am Urine Mucus Rahul 1+ /lpf None [facility], [address] [place] [address] 36 E 2018 [place] [address] 12:40am Troponin I Rahul 0.04 ng/ml 0.00-0.06 *ALERT* High [facility], [address] [place] [address] 36 E 2018 levels of [place] 61505 5:48am Biotin can falsely depress Troponin results.Many dietary supplements promoted for hair,skin, and nail benefits contain biotin levels up to 650 times the recommended daily intake of biotin. In additon to dietary supplements, Biotin is occasionally prescribed for medical conditions. Sodium Level March 137 mmol/L 136-145 [facility], [address] [place] [address] 36 E 2018 [place] [address]23 6:03am Potassium March 3.8 mmoL/L 3.5-5.1 [facility], [address] [place] [address] E Level 2018 [place] 73647 6:03am Chloride Level March 98 mmol/L 98-107 [facility], [address] [place] [address] E 2018 [place] 78647 6:03am Carbon Dioxide March 35 mmol/L 21.0-32.0 [facility], [address] [place] [address] E Level 2018 [place] 80193 6:03am Anion Gap March 7.8 mEq/L 5-15 [facility], [address] [place] [address] E 2018 [place] [address] 6:03am Blood Urea March 22 mg/dL -18 Delta: 10 on [facility], [address] [place] [address] E Nitrogen 201803/07/19 [place] [address]15 6:03am Creatinine March 0.94 mg/dL 0.70-1.30 Delta: 0.69 [facility], [address] [place] [address] 36 E 2018 on [place] [address]78 6:03am 03/07/19 Estimated Rahul 134 mL/min 0-[address] 36 E Creatinine 2018 [place] [address] Clearance 6:03am Estimated GFR March 102 ML/MIN >59 Delta: 146 [facility], [address] [place] [address] 36 E ( 201803/07/19 [place] [address] Burmese) 6:03am Estimat March 85 ml/min >59 [facility], [address] [place] [address] 36 E Glomerular 2018 [place] [address] Filtration 6:03am Rate Glucose Level March 156 mg/dL 74-106 [facility], [address] [place] [address] 36 E 2018 [place] [address] 6:03am Bedside March 180 70-110 Point-of-C ar Glucose 2018 e (RALS) 5:14am Lactate March 1.0 mmol/L 0.4-2.0 [facility], [address] [place] [address] 36 E 2018 [place] [address] 8:14am Calcium Level March 7.9 mg/dL 8.5-10.1 [facility], [address] [place] [address] 36 E 2018 [place] [address] 6:03am Magnesium Rahul 1.4 mg/dL 1.4-2.2 [facility], [address] [place] [address] E Level 2018 [place] [address] 5:48am Total Rahul 0.2 mg/dL 0.2-1.0 [facility], [address] [place] [address] 36 E Bilirubin 2018 [place] 21338 12:00am Direct Rahul 0.1 mg/dL 0.0-0.2 [facility], [address] [place] [address] 36 E Bilirubin 2018 [place] [address] 12:00am Indirect Rahul 0.1 mg/dL 0.0-0.9 [facility], [address] [place] [address] 36 E Bilirubin 2018 [place] [address] 12:00am Aspartate March 27 U/L 15-37 [facility], [address] [place] [address] 36 E Amino Transf 2018 [place] 366[address] (AST/SGOT) 12:00am Alanine March 26 U/L 12-78 [facility], [address] [place] [address] 36 E Aminotransfera 2018 Nelda [place]jeremias [place] [address] se (ALT/SGPT) 12:00am B-Type March 18 pg/mL 0-100 [facility], [address] [place] [address] 36 E Natriuretic 2018 [place] [address] Peptide 11:50pm Total Protein March 7.1 gm/dL 6.4-8.2 [facility], [address] [place] [address] 36 E 2018 [place] 18915 12:00am Albumin Rahul 3.0 gm/dL 3.4-5.0 [facility], [address] [place] [address] E 2018 [place] 16230 12:00am Alkaline Rahul 98 U/L 46-116 [facility], [address] [place] [address] 36 E Phosphatase 2018 [place] 52126 12:00am Influenza Type Rahul Negative Negative [facility], [address] [place] [address] E A Antigen 2018 [place] 88488 1:43am Influenza Type Rahul Negative Negative [facility], [address] [place] [address] E B Antigen 2018 [place] [address] 1:43am Mycoplasma Rahul Non-reactiv Non-Reacti [facility], [address] [place] [address] E pneumoniae IgM 2018 [place] [facility] [place] [address] Antibody 5:48am Arterial Blood Rahul 7.36 mmol/L 7.35-7.45 [facility], [address] [place] [address] E pH 2018 [place] [address] 1:49am Arterial Blood Rahul 60.1 mmhg 35.0-45.0 [facility], [address] [place] [address] E Partial 2018 CRITICAL [place] [address] Pressure CO2 1:49am RESULT Results called to:[ELENO Kong] by Marley Myers, RTat 0211 on 03/07/19 Arterial Blood Rahul 44.2 mmhg 80-100 [facility], [address] [place] [address] E Partial 2018 CRITICAL [facility] [address] Pressure O2 1:49am RESULT Results called to:[ELENO Kong] by Marley Myers, RTat 0212 on 03/07/19 Arterial Blood Rahul 33.1 mmhg 22.0-26.0 [facility], [address] [place] [address] E HCO3 2018 [place] [address] 1:49am Arterial Blood Rahul 35.0 mmhg 23-27 [facility], [address] [place] [address] E Total CO2 2018 [place] [address] 1:49am Arterial Blood Rahul 7.6 mmol/L -2.4-2.3 [facility], [address] [place] [address] 36 E Base Excess 2018 [place] 11052 1:49am Arterial Blood March 83 % 90-100 [facility], [address] [place] [address] 36 E Oxygen 2018 [place] [address] Saturation 1:49am Blood Gas March 32 % [facility], [address] [place] [address] 36 E Oxygen Percent 2018 [place] 22935 1:49am Antonio Test March Acceptable [facility], [address] [place] [address] 36 E 2018 [place] [address]33 1:49am Blood Gas March Right [facility], [address] [place] [address] 36 E Specimen 2018 radial [place] [address] Source 1:49am Microbiology Results Procedure Source Result Collection Result Result Performin g Date/Time Date/Time Comment Site Gram Stain Sputum, March 08March [facility], [address] [place] [address] E Expectorated 2018 6:35am 2018 [place] [address] Sputum 8:02am Sputum Sputum, March 08March [facility], [address] [place] [address] E Culture Expectorated 2018 6:35am 2018 [place] [address] Sputum 8:02am Diagnostic Imaging Reports Report Dictated Date/Time Dictated By Status Radiology Report March 07, 2019 Antonio Givens MD completed 12:13am [place] [address] [address] [id number] XRay R eport Sig lyla Patient: Temo Poon MR#: [id number] : 1965 Acct:[id number] Age/Sex: 53 / M ADM Date: 9 Loc: ICU 263-[address]: Augustus Patton MD Ordering Physician: Harry Rosenberg MD Date of Service: 03/07/19 Procedure(s): XR chest 2V Accession Number(s): [id number] cc: Antonio Givens MD; Augustus Patton MD~ PROCEDURE: XR CHEST 2V CLINICAL HISTORY: CP Chest pain and shortness of breath COMPARISON: CXR1 CHEST-PORTABLE from 01/07/2015 CT ANGIO CHEST from 03/07/2019 FINDINGS: The cardiomediastinal silhouette and pu lmonary vascularity are within normal limits. Patchy density is present in the right upper, right lower, left mid and lower lung zone consistent with inf iltrate. No acute bony abnormalities. IMPRESSION: Bilateral pneumonia Dictated by: Antonio Givens MD 03/07/2019 03:31 Electronically signed by Antonio Givens in [place] 03/07/2019 03:31 Radiology Report March 07, 2019 Antonio Givens MD completed 2:47am [facility] [address] [place] [facility] [address] [place] [id number] [address] Scan Report Sig lyla Patient: Temo Poon MR#: [id number] : 1965 Acct:[id number] Age/Sex: 53 / M ADM Date: 9 Loc: ICU 263-[address]: Augustus Patton MD Ordering Physician: Harry Rosenberg MD Date of Service: 03/07/19 Procedure(s): CT angio chest Accession Number(s): [id number] cc: Antonio Givens MD; Harry Rosenberg MD; Augustus Patton MD~ PROCEDURE: CT ANGIO CHEST CLINCIAL INDICATION: soa,hypoxic Shortness of breath, hypoxia, cough COMPARISON: No exams were available fo r comparison TECHNIQUE: IV Contrast: 70ML OPTIRAY 350 Axial images obtained with sagittal and coronal reformats. All CT scans at the facility use one or more d ose reduction, viz: automated exposure control, ma/kV adjustment per patient size (including targeted exams where dose is matched to indication, i.e. head), or iterative reconstruction technique. FINDINGS: No evidence of pulmonary embolus or aor tic aneurysm or dissection. Bronchial wall thickening angiographic ground-glass parenchymal opacities with interstitial thickening is noted in right upper lobe, left upper lobe, left lower lobe, right lung base, right middle lobe. Scattered small nodes are present in t he mediastinum with pre carinal lymph node at 1.8 by 1.6 cm. M ild gynecomastia. No effusions. There are degenerative kelly ges in the thoracic spine and postsurgical changes of the lower thora cic and upper lumbar spine with a left lateral bone plate and stab ilizing strut. Paravertebral sclerosis noted. IMPRESSION: 1. No evidence of pulmonary embolus or aortic aneurysm or dissection. 2. Scattered bilateral patchy areas of infiltrate. This is nonspecific and could be due to areas o f pneumonia, edema, or alveolar proteinosis. 3. Mild mediastinal adenopathy Dictated by: Antonio Givens MD 03/07/2019 05:11 Electronically signed by Antonio Givens in [place] 03/07/2019 05:11 Radiology Report March 08, 2019 Bud Rao completed 8:40am [facility] [address] [place] [place] [id number] XRay R eport Sig lyla Patient: Temo Poon MR#: [id number] : 1965 Acct:[id number] Age/Sex: 53 / M ADM Date: 9 Loc: ICU 263-[address]: Augustus Patton MD Ordering Physician: Augustus Patton MD Date of Service: 03/08/19 Procedure(s): XR chest portable Accession Number(s): [id number] cc: Bud Rao ; Augustus Patton MD ~ PROCEDURE: XR CHEST PORTABLE CLINICAL HISTORY: bilateral pneumonia COMPARISON: CXR1 CHEST-PORTABLE from 01/07/2015 CT ANGIO CHEST from 03/07/2019 XR CHEST 2V from 03/07/2019 FINDINGS: The lung ness are fairly well expande d. Patchy somewhat ill-defined pneumonic infiltrates are a gain seen in perihilar regions and lower lobes slightly more prominent than yesterday's study. The upper lung ness are clear at this kaylin e. Cardiac size is normal and vascularity is normal and there is no p leural fluid. IMPRESSION: Slight interval progression of bilatera l perihilar and lower lobe bronchopneumonia Dictated by: Dr. Juan Rao MD 2018 09:[address] Kennedy Rao MD in [place] 03/08/2019 09:19 Chief Complaint and Reason for Visit Chief Complaint Exacerbation of COPD Reason for Visit Acute exacerbation of chroni c obstructive airways disease Chronic anxiety Chronic pain syndrome Cigarette smoker Community acquired pneumonia Hyperlipidemia Obesity (BMI 30.0-34.9) RBBB Diabetes mellitus with hyper glycemia Hypertension Monoplegia of right lower ex tremity Pain, 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 SIRS (systemic inflammatory response syndrome) Encounters Encounter Location(s) Arrival/Admit Date Discharge/Depart Date Provider(s) Admitted [facility] Physician March 07, 2019 Augustus Patton , Inpatient Group-Intensive 4:53am MD Care Unit Registered [facility] Physician March 08, 2019 Harry Sanchez Inpatient Group- 10:43am MD Shakira Recent Diagnosis Onset Date Acute exacerbation of chronic obstructive airways dise ase Chronic anxiety Chronic pain syndrome Cigarette smoker Community acquired pneumonia Hyperlipidemia Obesity (BMI 30.0-34.9) RBBB Diabetes mellitus with hyperglycemia Hypertension Monoplegia of right lower extremity Pain, 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 SIRS (systemic inflammatory response syndrome) Assessments See care plan goals Functional Status Observation Response Date Recorded Oral Care Ability Independent March 07, 2019 5 :42am Bathing Ability Independent March 07, 2019 5 :42am Eating (Feeding) Ability Independent March 07 019 5:42am Ambulation Ability Independent March 07, 2019 5 :42am Goals Acute Goals Nursing Diagnosis: Knowledge Deficit D isease/Condition Goal(s): Education of di sease process Instruction(s): Follow provider p miosés/instructions (See attached discharge education) Follow/up with primary care provider as instructed in discharge packet Mental Status Observation Response Date Recorded Comprehension Ability No Impairment March 08, 2019 9:00am Able to Read Yes March 07, 2019 5 :42am Able to Write Yes March 07, 2019 5 :42am Ability to Follow Directions Good March 5:42am Eye Contact Direct Eye Contact March 07, 2019 5 :42am Oral Expression Ability No Impairment March 07 5:42am Medical Equipment No Medical Equipment Information available Insurance Providers Guarantor Temo Poon Address [address] [place] [address] Contact Info. Home Phone: Payer Policy Id Coverage Id Subscriber's Subscriber Effective Expi ration Name Id Date Date [place] [id number] [place] [id number] September 08, Medicare 2017 Medicaid [id number] Medicare [id number] 1993 Self Pay Self N/A Plan of Treatment Follow up as ordered by primary care provider Future Tests Future scheduled test information is unavailable Pending Tests Pending diagnostic test information is unavailable Future Visits Future appointment information is unavailable Referrals to Other Providers Reason for Referral Start Provider Provider Contact Provider Address Referral Date Information Admission to [facility] March [id number] [facility] Future Procedures Future procedure information is unavailable Future Medications Future medication information is unavailable Patient Instructions Keep the Weight Off When You Quit Smokin g Assess Your Smoking Habit Type 2 Diabetes Chronic Obstructive Pulmonary Disease DI for Pneumonia -- Adult How to Quit Smoking DI for High Cholesterol-Adult Social History Assigned Sex Male Vital Signs Vital Reading Result Reference Range Collection Date/ Time Height 175 cm March 08 9:00am Weight 115.83 kg March 08 9:00am Body Temperature 98.2 [degF] 97.6-99.6 March 08, 2 019 7:50am Heart Rate 86 /min 60-March 08 10:05am Respiratory rate 18 /min -March 08, 019 7:50am Oxygen saturation by 95 % 95-100 March Pulse oximetry 10:05am BP Systolic 124 mm[Hg] 110-140 March 08 7:50am BP Diastolic 71 mm[Hg] 60-90 March 08 7:50am BMI (Body Mass Index) 37.8 kg/m2 March 082018 9:00am Inhaled oxygen 70 % March 08 concentration 10:05am
--- NOTE | 2019-03-08 16:38 | Electrocardiograph Report ---
APPROVED REPORT Exam: Resting ECG HR:112 bpm ECG Measurements Heart Rate 112 AXES AL 148 P 82 QRSd 142 QRS 94 QT 378 T43 QTc 515 <Conclusion> Sinus tachycardia with premature atrial complexes with aberrant conduction Right bundle branch block Abnormal ECG Electronically signed by : Augustus Key, 03/08/2019 16:38:07
[2019-03-09 06:15] LABS: Anion Gap 11.6 mEq/L (5-15); Calcium 8.2 mg/dL (8.5-10.1)
[2019-03-09 06:27] LABS: Basophils # 0.1 K/mm3 (0-0.2); Basophils % 0.4 % (0.1-2.0); Eosinophils % 0.1 % (0.1-12.0); Hematocrit 52.5 % (42.0-52.0); Hemoglobin 16.5 g/dL (14.1-18.0); Lymphocytes # 1.7 K/mm3 (0.7-4.5); Lymphocytes % 12.7 % (10-50); Mean Corpuscular HGB Conc 31.5 g/dL (31.8-35.4); Mean Corpuscular Volume 91.5 fl (80-94); Mean Platelet Volume 8.9 fl (7.4-10.4); Monocytes # 0.6 K/mm3 (0.1-1.0); Monocytes % 4.3 % (1.7-9.3); Neutrophils # 10.9 K/mm3 (1.8-7.8); Neutrophils % 82.6 % (37.0-80.0); Platelet Count 212 K/mm3 (142-424); Red Blood Count 5.73 M/mm3 (4.60-6.20); Red Cell Distribution Width 13.7 % (11.5-17.5); White Blood Count 13.2 K/mm3 (4.8-10.8)
--- NOTE | 2019-03-09 07:28 | Progress Note ---
Internal Medicine - PN: Subj *Date: 03/09/19 *Time: 07:27 Interval history: Patient reports improvement in dyspnea since yesterday. He believes he has been aided significantly by use of Mucomyst nebs which have allowed him to produce large amounts of sputum. Sputum culture is still in process. He remains on Vapotherm Exam Vital signs and Labs for Last 24 Hours: Temp Pulse Resp BP Pulse Ox 97.8 F 94 H 18 138/80 92 L 03/09/19 04:00 03/09/19 06:40 03/09/19 04:00 03/09/19 04:00 03/09/19 06:40 Laboratory Results - last 24 hr 03/08/19 11:44: POC Glucose 191 H 03/09/19 05:00: WBC 13.2 H, RBC 5.73, Hgb 16.5, Hct 52.5 H, MCV 91.5, MCH 28.8, MCHC 31.5 L, RDW 13.7, Plt Count 212, MPV 8.9, Neut % (Auto) 82.6 H, Lymph % (Auto) 12.7, [place] % (Auto) 4.3, Eos % (Auto) 0.1, Baso % (Auto) 0.4, Neut # (Auto) 10.9 H, Lymph # (Auto) 1.7, [place] # (Auto) 0.6, Eos # (Auto) 0.0, Baso # (Auto) 0.1 03/09/19 05:00: Sodium 139, Potassium 4.6 D, Chloride 97 L, Carbon Dioxide 35 H , Anion Gap 11.6, BUN 24 H, Creatinine 0.61 L D, Estimated Creat Clear 235, Estimated GFR 139, Est GFR ( Amer) 169 D, Glucose 194 H D, Calcium 8.2 L I & O for Last 24 hours: Intake & Output 03/06/19 03/07/19 03/08/19 03/09/19 11:59 11:59 11:59 11:59 Intake Total 560 / 560 2342 / 2342 960 / 960 Output Total 2300 / 2300 4650 / 4650 1950 / 1950 Balance -1740 / -1740 -2308 / -2308 -990 / -990 Weight 225 lb 255 lb 6 oz 255 lb 5.994 oz Microbiology Reports for the Last 24 Hours: Microbiology 03/07/19 00:40 Urine,Catheterized Urine Culture - Final NO GROWTH AFTER 48 HOURS 03/06/19 23:50 Blood Blood Culture - Preliminary NO GROWTH AFTER 48 HOURS 03/06/19 23:50 Blood Blood Culture - Preliminary NO GROWTH AFTER 48 HOURS 03/08/19 21:15 Sputum - Expectorated Sputum Gram Stain - Final 03/08/19 06:35 Sputum - Expectorated Sputum Gram Stain - Final 03/08/19 06:35 Sputum - Expectorated Sputum Sputum Culture - Final Narrative: Patient looks comfortable. He removed his Vapotherm during the exam and for at least a few minutes was able to maintain O2 sats in the low to mid 90s. Lung exam reveals distant breath sounds throughout but no rales or rhonchi or wheezing this morning. Heart has a regular rate and rhythm Assessment and Plan (1) Acute exacerbation of chronic obstructive airways disease Current visit: Yes Status: Acute Category: Medical Code(s): J44.1 - Chronic obstructive pulmonary disease with (acute) exacerbation (2) Community acquired pneumonia Current visit: Yes Status: Acute Qualifiers: Laterality: unspecified laterality Qualified Code(s): J18.9 - Pneumonia, unspecified organism Category: Medical Code(s): J18.9 - Pneumonia, unspecified organism (3) Obesity (BMI 30.0-34.9) Current visit: Yes Status: Acute Category: Medical Code(s): E66.9 - Obesity, unspecified (4) RBBB Current visit: Yes Status: Acute Category: Medical Code(s): I45.10 - Unspecified right bundle-branch block (5) SIRS (systemic inflammatory response syndrome) Current visit: Yes Status: Resolved Category: Medical Code(s): R65.10 - Systemic inflammatory response syndrome (SIRS) of non-infectious origin without acute organ dysfunction (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 Category: Medical Code(s): G83.11 - Monoplegia of lower limb affecting right dominant side (7) Diabetes mellitus with hyperglycemia Current visit: Yes Status: Chronic Category: Medical Code(s): E11.65 - Type 2 diabetes mellitus with hyperglycemia (8) Cigarette smoker Current visit: Yes Status: Acute Category: Medical Code(s): F17.210 - Nicotine dependence, cigarettes, uncomplicated (9) Hypertension Current visit: Yes Status: Chronic Category: Medical Code(s): I10 - Essential (primary) hypertension (10) Hyperlipidemia Current visit: Yes Status: Acute Category: Medical Code(s): E78.5 - Hyperlipidemia, unspecified (11) Chronic anxiety Current visit: Yes Status: Acute Category: Medical Code(s): F41.9 - Anxiety disorder, unspecified (12) Chronic pain syndrome Current visit: Yes Status: Acute Category: Medical Code(s): G89.4 - Chronic pain syndrome (13) Pain, 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 Current visit: Yes Status: Chronic Category: Medical Code(s): G89.21 - Chronic pain due to trauma - Assessment and plan all Dx Assessment and Plan for all problems:: Patient is showing signs of improvement. He is still requiring significant oxygen support and goal of the day will be to wean his oxygen
[2019-03-10 06:37] LABS: Basophils # 0.2 K/mm3 (0-0.2); Eosinophils # 0.1 K/mm3 (0.0-0.4); Eosinophils % 0.3 % (0.1-12.0); Hemoglobin 16.9 g/dL (14.1-18.0); Lymphocytes # 2.3 K/mm3 (0.7-4.5); Lymphocytes % 14.7 % (10-50); Mean Corpuscular HGB Conc 30.5 g/dL (31.8-35.4); Mean Corpuscular Volume 93.3 fl (80-94); Mean Platelet Volume 7.9 fl (7.4-10.4); Monocytes # 0.6 K/mm3 (0.1-1.0); Monocytes % 3.8 % (1.7-9.3); Neutrophils # 12.4 K/mm3 (1.8-7.8); Neutrophils % 80.2 % (37.0-80.0); Platelet Count 247 K/mm3 (142-424); Red Blood Count 5.93 M/mm3 (4.60-6.20); Red Cell Distribution Width 13.5 % (11.5-17.5); White Blood Count 15.4 K/mm3 (4.8-10.8)
[2019-03-10 06:38] LABS: Hematocrit 55.3 % (42.0-52.0)
[2019-03-10 06:45] LABS: Anion Gap 6.3 mEq/L (5-15); Calcium 8.4 mg/dL (8.5-10.1)
[2019-03-10 07:24] LABS: Hypochromasia 1+; Lymphocytes % 6 % (10-50); Neutrophils % 91 % (42-76); Total Cells Counted 100
--- NOTE | 2019-03-10 07:56 | Progress Note ---
Internal Medicine - PN: Subj *Date: 03/10/19 *Time: 07:54 Interval history: Patient states he is feeling better. He continues to produce significant volumes of discolored sputum ranging from green to michelle and brown. He took it upon himself to intermittently remove his oxygen and his O2 sats did decrease to 87% while at rest. He does admit to getting short of breath with any exertion such as a trip to the bathroom. He does tell me he had a prior bout of either a COPD exacerbation or pneumonia many years ago before he was under my care and did use home oxygen after that hospitalization. Exam Vital signs and Labs for Last 24 Hours: Temp Pulse Resp BP Pulse Ox 98.6 F 87 18 168/98 H 96 03/10/19 04:00 03/10/19 07:11 03/10/19 04:00 03/10/19 04:00 03/10/19 07:11 Laboratory Results - last 24 hr 03/08/19 16:37: POC Glucose 170 H 03/08/19 20:27: POC Glucose 194 H 03/09/19 05:02: POC Glucose 178 H 03/09/19 11:43: POC Glucose 239 H 03/09/19 17:21: POC Glucose 353 H* 03/09/19 20:52: POC Glucose 129 H 03/10/19 05:52: POC Glucose 220 H 03/10/19 06:25: WBC 15.4 H, RBC 5.93, Hgb 16.9, Hct 55.3 H, MCV 93.3, MCH 28.4, MCHC 30.5 L, RDW 13.5, Plt Count 247, MPV 7.9, Neut % (Auto) 80.2 H, Lymph % (Auto) 14.7, [place] % (Auto) 3.8, Eos % (Auto) 0.3, Baso % (Auto) 1.0, Neut # (Auto) 12.4 H, Lymph # (Auto) 2.3, [place] # (Auto) 0.6, Eos # (Auto) 0.1, Baso # (Auto) 0.2, Total Counted 100, Neutrophils % (Manual) 91 H, Band Neutrophils % 3.0, Lymphocytes % (Manual) 6 L, Platelet Estimate Normal, Hypochromasia 1+ 03/10/19 06:25: Sodium 141, Potassium 4.3, Chloride 97 L, Carbon Dioxide 42 H*, Anion Gap 6.3, BUN 18, Creatinine 0.73, Estimated Creat Clear 200, Estimated GFR 113, Est GFR ( Amer) 137, Glucose 237 H, Calcium 8.4 L I & O for Last 24 hours: Intake & Output 03/07/19 03/08/19 03/09/19 03/10/19 11:59 11:59 11:59 11:59 Intake Total 560 / 560 2342 / 2342 1200 / 1200 1140 / 1140 Output Total 2300 / 2300 4650 / 4650 2950 / 2950 4950 / 4950 Balance -1740 / -1740 -2308 / -2308 -1750 / -1750 -3810 / -3810 Weight 225 lb 255 lb 6 oz 256 lb 3.998 oz 260 lb Microbiology Reports for the Last 24 Hours: Microbiology 03/08/19 21:15 Sputum - Expectorated Sputum Gram Stain - Final 03/08/19 21:15 Sputum - Expectorated Sputum Sputum Culture - Preliminary 03/07/19 00:40 Urine,Catheterized Urine Culture - Final NO GROWTH AFTER 48 HOURS Narrative: Patient is seated in his wheelchair and is not currently wearing any supplemental oxygen. He shows no signs of respiratory distress. Lung exam reveals distant breath sounds overall but I would say improved aeration in the left lung with audible rales at the left lung base. Heart has a regular rate and rhythm Assessment and Plan (1) Acute exacerbation of chronic obstructive airways disease Current visit: Yes Status: Acute Category: Medical Code(s): J44.1 - Chronic obstructive pulmonary disease with (acute) exacerbation (2) Community acquired pneumonia Current visit: Yes Status: Acute Qualifiers: Laterality: unspecified laterality Qualified Code(s): J18.9 - Pneumonia, unspecified organism Category: Medical Code(s): J18.9 - Pneumonia, unspecified organism (3) Obesity (BMI 30.0-34.9) Current visit: Yes Status: Acute Category: Medical Code(s): E66.9 - Obesity, unspecified (4) RBBB Current visit: Yes Status: Acute Category: Medical Code(s): I45.10 - Unspecified right bundle-branch block (5) SIRS (systemic inflammatory response syndrome) Current visit: Yes Status: Resolved Category: Medical Code(s): R65.10 - Systemic inflammatory response syndrome (SIRS) of non-infectious origin without acute organ dysfunction (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 Category: Medical Code(s): G83.11 - Monoplegia of lower limb affecting right dominant side (7) Diabetes mellitus with hyperglycemia Current visit: Yes Status: Chronic Category: Medical Code(s): E11.65 - Type 2 diabetes mellitus with hyperglycemia (8) Cigarette smoker Current visit: Yes Status: Acute Category: Medical Code(s): F17.210 - Nicotine dependence, cigarettes, uncomplicated (9) Hypertension Current visit: Yes Status: Chronic Category: Medical Code(s): I10 - Essential (primary) hypertension (10) Hyperlipidemia Current visit: Yes Status: Acute Category: Medical Code(s): E78.5 - Hyperlipidemia, unspecified (11) Chronic anxiety Current visit: Yes Status: Acute Category: Medical Code(s): F41.9 - Anxiety disorder, unspecified (12) Chronic pain syndrome Current visit: Yes Status: Acute Category: Medical Code(s): G89.4 - Chronic pain syndrome (13) Pain, 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 Current visit: Yes Status: Chronic Category: Medical Code(s): G89.21 - Chronic pain due to trauma - Assessment and plan all Dx Assessment and Plan for all problems:: Patient will continue to aggressively wean from oxygen. He will ambulate more. We will see how he does overnight without any significant support from supplemental oxygen. Anticipate discharge tomorrow. Of note white blood cell count remains elevated despite clinical improvement. This may be due to steroids. I am going to transition him from Solu-Medrol to prednisone.
--- NOTE | 2019-03-10 14:32 | Progress Note ---
Internal Medicine - PN: Subj *Date: 03/10/19 *Time: 14:32 Exam Vital signs and Labs for Last 24 Hours: Temp Pulse Resp BP Pulse Ox 98.5 F 90 23 194/93 H 88 L 03/10/19 12:00 03/10/19 13:22 03/10/19 12:00 03/10/19 13:20 03/10/19 12:00 Laboratory Results - last 24 hr 03/08/19 16:37: POC Glucose 170 H 03/08/19 20:27: POC Glucose 194 H 03/09/19 05:02: POC Glucose 178 H 03/09/19 11:43: POC Glucose 239 H 03/09/19 17:21: POC Glucose 353 H* 03/09/19 20:52: POC Glucose 129 H 03/10/19 05:52: POC Glucose 220 H 03/10/19 06:25: WBC 15.4 H, RBC 5.93, Hgb 16.9, Hct 55.3 H, MCV 93.3, MCH 28.4, MCHC 30.5 L, RDW 13.5, Plt Count 247, MPV 7.9, Neut % (Auto) 80.2 H, Lymph % (Auto) 14.7, [place] % (Auto) 3.8, Eos % (Auto) 0.3, Baso % (Auto) 1.0, Neut # (Aut o) 12.4 H, Lymph # (Auto) 2.3, [place] # (Auto) 0.6, Eos # (Auto) 0.1, Baso # (Auto) 0.2, Total Counted 100, Neutrophils % (Manual) 91 H, Band Neutrophils % 3.0, Lymphocytes % (Manual) 6 L, Platelet Estimate Normal, Hypochromasia 1+ 03/10/19 06:25: Sodium 141, Potassium 4.3, Chloride 97 L, Carbon Dioxide 42 H*, Anion Gap 6.3, BUN 18, Creatinine 0.73, Estimated Creat Clear 200, Estimated GFR 113, Est GFR ( Amer) 137, Glucose 237 H, Calcium 8.4 L 03/10/19 11:16: POC Glucose 216 H I & O for Last 24 hours: Intake & Output 03/07/19 03/08/19 03/09/19 03/10/19 23:59 23:59 23:59 23:59 Intake Total 1412 / 1412 2110 / 2110 1420 / 1420 780 / 780 Output Total 6400 / 6400 2500 / 2500 4200 / 5300 2550 / 2550 Balance -4988 / -4988 -390 / -390 -2780 / -3880 -1770 / -1770 Weight 102.058 kg 115.836 kg 116.233 kg 117.934 kg Microbiology Reports for the Last 24 Hours: Microbiology 03/08/19 21:15 Sputum - Expectorated Sputum Gram Stain - Final 03/08/19 21:15 Sputum - Expectorated Sputum Sputum Culture - Preliminary Assessment and Plan (1) Acute exacerbation of chronic obstructive airways disease Current visit: Yes Status: Acute Category: Medical Code(s): J44.1 - Chronic obstructive pulmonary disease with (acute) exacerbation (2) Community acquired pneumonia Current visit: Yes Status: Acute Qualifiers: Laterality: unspecified laterality Qualified Code(s): J18.9 - Pneumonia, unspecified organism Category: Medical Code(s): J18.9 - Pneumonia, unspecified organism (3) Obesity (BMI 30.0-34.9) Current visit: Yes Status: Acute Category: Medical Code(s): E66.9 - Obesity, unspecified (4) RBBB Current visit: Yes Status: Acute Category: Medical Code(s): I45.10 - Unspecified right bundle-branch block (5) SIRS (systemic inflammatory response syndrome) Current visit: Yes Status: Resolved Category: Medical Code(s): R65.10 - Systemic inflammatory response syndrome (SIRS) of non-infectious origin without acute organ dysfunction (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 Category: Medical Code(s): G83.11 - Monoplegia of lower limb affecting right dominant side (7) Diabetes mellitus with hyperglycemia Current visit: Yes Status: Chronic Category: Medical Code(s): E11.65 - Type 2 diabetes mellitus with hyperglycemia (8) Cigarette smoker Current visit: Yes Status: Acute Category: Medical Code(s): F17.210 - Nicotine dependence, cigarettes, uncomplicated (9) Hypertension Current visit: Yes Status: Chronic Category: Medical Code(s): I10 - Essential (primary) hypertension (10) Hyperlipidemia Current visit: Yes Status: Acute Category: Medical Code(s): E78.5 - Hyperlipidemia, unspecified (11) Chronic anxiety Current visit: Yes Status: Acute Category: Medical Code(s): F41.9 - Anxiety disorder, unspecified (12) Chronic pain syndrome Current visit: Yes Status: Acute Category: Medical Code(s): G89.4 - Chronic pain syndrome (13) Pain, 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 Current visit: Yes Status: Chronic Category: Medical Code(s): G89.21 - Chronic pain due to trauma The patient's infection will respond to the chosen ABx?: Yes Is the patient receiving the right drug, dose, and route?: Yes Could a more targeted ABx be ordered?: No
[2019-03-11 07:03] LABS: Basophils # 0.1 K/mm3 (0-0.2); Basophils % 0.3 % (0.1-2.0); Eosinophils % 0.3 % (0.1-12.0); Hematocrit 54.3 % (42.0-52.0); Lymphocytes # 4.4 K/mm3 (0.7-4.5); Lymphocytes % 30.5 % (10-50); Mean Corpuscular HGB Conc 31.3 g/dL (31.8-35.4); Mean Corpuscular Volume 91.2 fl (80-94); Mean Platelet Volume 7.6 fl (7.4-10.4); Monocytes # 1.1 K/mm3 (0.1-1.0); Monocytes % 7.4 % (1.7-9.3); Neutrophils # 8.8 K/mm3 (1.8-7.8); Neutrophils % 61.5 % (37.0-80.0); Platelet Count 248 K/mm3 (142-424); Red Blood Count 5.95 M/mm3 (4.60-6.20); Red Cell Distribution Width 13.3 % (11.5-17.5); White Blood Count 14.4 K/mm3 (4.8-10.8)
--- NOTE | 2019-03-11 07:03 | Progress Note ---
Internal Medicine - PN: Subj *Date: 03/11/19 *Time: 07:01 Interval history: Patient had an episode of coughing last night in which he could not catch his breath and even this morning believes he may have aspirated as he felt like he regurgitated some liquid. He became quite scared during this episode. Nursing staff describes patient being unable to get a deep breath and almost turning blue from his coughing. However during this time his oxygen sats did not decrease. He remains on nasal cannula between 3 and 4 L/min. He did have a low O2 sat of 88% yesterday afternoon Exam Vital signs and Labs for Last 24 Hours: Temp Pulse Resp BP Pulse Ox 97.7 F 82 20 157/86 H 92 L 03/11/19 04:00 03/11/19 06:32 03/11/19 04:00 03/11/19 04:00 03/11/19 06:32 Laboratory Results - last 24 hr 03/10/19 06:25: Total Counted 100, Neutrophils % (Manual) 91 H, Band Neutrophils % 3.0, Lymphocytes % (Manual) 6 L, Platelet Estimate Normal, Hypochromasia 1+ 03/10/19 11:16: POC Glucose 216 H 03/10/19 16:32: POC Glucose 203 H 03/10/19 22:10: POC Glucose 164 H 03/11/19 01:02: POC Glucose 166 H 03/11/19 05:40: POC Glucose 148 H I & O for Last 24 hours: Intake & Output 03/08/19 03/09/19 03/10/19 03/11/19 11:59 11:59 11:59 11:59 Intake Total 2342 / 2342 1200 / 1200 1380 / 1380 960 / 960 Output Total 4650 / 4650 2950 / 2950 5750 / 5750 Balance -2308 / -2308 -1750 / -1750 -4370 / -4370 960 / 960 Weight 255 lb 6 oz 256 lb 3.998 oz 260 lb 266 lb 3 oz Microbiology Reports for the Last 24 Hours: Microbiology 03/08/19 21:15 Sputum - Expectorated Sputum Gram Stain - Final 03/08/19 21:15 Sputum - Expectorated Sputum Sputum Culture - Preliminary Narrative: Patient is in no distress this morning. He is resting comfortably with oxygen in place. Lungs have rales in the left base with overall improvement in aeration. Heart has a regular rate and rhythm. Assessment and Plan (1) Acute exacerbation of chronic obstructive airways disease Current visit: Yes Status: Acute Category: Medical Code(s): J44.1 - Chronic obstructive pulmonary disease with (acute) exacerbation (2) Community acquired pneumonia Current visit: Yes Status: Acute Qualifiers: Laterality: unspecified laterality Qualified Code(s): J18.9 - Pneumonia, unspecified organism Category: Medical Code(s): J18.9 - Pneumonia, unspecified organism (3) Obesity (BMI 30.0-34.9) Current visit: Yes Status: Acute Category: Medical Code(s): E66.9 - Obesity, unspecified (4) RBBB Current visit: Yes Status: Acute Category: Medical Code(s): I45.10 - Unspecified right bundle-branch block (5) SIRS (systemic inflammatory response syndrome) Current visit: Yes Status: Resolved Category: Medical Code(s): R65.10 - Systemic inflammatory response syndrome (SIRS) of non-infectious origin without acute organ dysfunction (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 Category: Medical Code(s): G83.11 - Monoplegia of lower limb affecting right dominant side (7) Diabetes mellitus with hyperglycemia Current visit: Yes Status: Chronic Category: Medical Code(s): E11.65 - Type 2 diabetes mellitus with hyperglycemia (8) Cigarette smoker Current visit: Yes Status: Acute Category: Medical Code(s): F17.210 - Nicotine dependence, cigarettes, uncomplicated (9) Hypertension Current visit: Yes Status: Chronic Category: Medical Code(s): I10 - Essential (primary) hypertension (10) Hyperlipidemia Current visit: Yes Status: Acute Category: Medical Code(s): E78.5 - Hyperlipidemia, unspecified (11) Chronic anxiety Current visit: Yes Status: Acute Category: Medical Code(s): F41.9 - An xiety disorder, unspecified (12) Chronic pain syndrome Current visit: Yes Status: Acute Category: Medical Code(s): G89.4 - Chronic pain syndrome (13) Pain, 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 Current visit: Yes Status: Chronic Category: Medical Code(s): G89.21 - Chronic pain due to trauma - Assessment and plan all Dx Assessment and Plan for all problems:: We will give patient a chance to get through the day and see how he does. Anticipate needs for supplemental oxygen at home via an oxygen concentrator. Discontinue Mucomyst nebs due to ineffectiveness now. Continue duo nebs and oral steroids.
--- NOTE | 2019-03-11 16:25 | Discharge Summary ---
[facility] General Admission date:: 03/07/19 HPI HPI: 53-year-old male with hypertension, hyperlipidemia, uncontrolled diabetes presented to the emergency department from home via private vehicle with progressive dyspnea and chest pain. Patient reports he had been feeling ill during the day with symptoms of an upper respiratory infection to include cough with yellow-michelle sputum production, low-grade fevers, chills and increasing dyspnea. His dyspnea did not improve despite use of home nebulized albuterol and Ventolin inhaler. During the day he also began to develop chest tightness that was nonradiating. Ultimately he became so short of breath he requested to go to the emergency department where he was transported by his . Patient believes in route he lost consciousness for no more than a minute. Once he arrived in the emergency department he underwent evaluation. In the emergency department patient's chest x-ray showed what appeared to be bilateral pneumonia and he was hypoxemic on a blood gas. Patient met criteria for treatment of severe sepsis which was initiated. Patient was diuresed with Lasix and this produced about 2 L of urine which patient feels like improved his breathlessness. Because of his oxygen requirement he was placed on Vapotherm and remains on that at this time. At present he is feeling better than when he presented. Hospital Course Hospital Course: Patient was admitted and placed on Rocephin and azithromycin along with intravenous Solu-Medrol and duo nebs. Aerosolized N-acetylcysteine was also given after day 1 of hospitalization. Patient remained afebrile. Upon admission patient had significant oxygen requirement with hypoxemia on his blood gas requiring high flow oxygen via Vapotherm. O2 sats were maintained above 90%. He responded well to treatment and after 3 days was weaned from Vapotherm. Patient was able to maintain O2 sats in the high 80s to low 90s on room air for brief periods of time. With episodes of cough he would feel significantly short of breath requiring use of supplemental oxygen. On the day of discharge lung exam was significant only for faint rales in the bases. Wheezing had resolved. He was discharged home to continue additional oral antibiotics and steroids along with use of supplemental oxygen as needed. During hospitalization home medications were continued. Despite use of steroids and patient eating excessive amounts of food that were brought to him from outside hospital patient's blood sugars were not significantly elevated. Patient will follow-up in the office in 1 week Objective Vital signs: Temp Pulse Resp BP Pulse Ox 97.7 F 86 18 182/95 H 95 03/11/19 12:07 03/11/19 14:09 03/11/19 12:07 03/11/19 12:07 03/11/19 14:09 Results Labs on day of discharge: Labs from last 24 hours 03/11/19 03/11/19 03/11/19 11:33 06:18 05:40 WBC 14.4 H RBC 5.95 Hgb 17.0 Hct 54.3 H MCV 91.2 MCH 28.5 MCHC 31.3 L RDW 13.3 Plt Count 248 MPV 7.6 Neut % (Auto) 61.5 Lymph % (Auto) 30.5 Nance % (Auto) 7.4 Eos % (Auto) 0.3 Baso % (Auto) 0.3 Neut # (Auto) 8.8 H Lymph # (Auto) 4.4 Nance # (Auto) 1.1 H Eos # (Auto) 0.0 Baso # (Auto) 0.1 POC Glucose 205 H 148 H 03/11/19 03/10/19 03/10/19 01:02 22:10 16:32 WBC RBC Hgb Hct MCV MCH MCHC RDW Plt Count MPV Neut % (Auto) Lymph % (Auto) Nance % (Auto) Eos % (Auto) Baso % (Auto) Neut # (Auto) Lymph # (Auto) Nance # (Auto) Eos # (Auto) Baso # (Auto) POC Glucose 166 H 164 H 203 H Preliminary micro results at discharge 03/06/19 23:50 Blood Culture - Preliminary Blood NO GROWTH AFTER 48 HOURS 03/06/19 23:50 Blood Culture - Preliminary Blood NO GROWTH AFTER 48 HOURS DS: Diagnosis - Discharge Diagnosis (1) Community acquired pneumonia Status: Acute (2) Acute exacerbation of chronic obstructive airways disease Status: Acute (3) Obesity (BMI 30.0-34.9) Status: Acute (4) RBBB Status: Acute (5) SIRS (systemic inflammatory response syndrome) Status: Resolved (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 (7) Diabetes mellitus with hyperglycemia Status: Chronic (8) Cigarette smoker Status: Acute (9) Hypertension Status: Chronic (10) Hyperlipidemia Status: Acute (11) Chronic anxiety Status: Acute (12) Chronic pain syndrome Status: Acute (13) Pain, 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 Status: Chronic Discharge Plan - Patient Discharge Instructions ACTIVITY: Continue current activity DIET: continue same diet Patient Instructions: Keep the Weight Off When You Quit Smoking, Assess Your Smoking Habit, Type 2 Diabetes, Chronic Obstructive Pulmonary Disease, DI for Pneumonia -- Adult, How to Quit Smoking, DI for High Cholesterol-Adult - Follow up Plan Follow up with: Augustus Patton MD [Primary Care Provider] - Disposition: Home, Self-Senior Care Medications: Home Medications Medication Instructions Recorded Confirmed Type alprazolam 1 mg tablet 1 mg PO BIDP PRN 15 Days tab 10/12/17 03/07/19 History amlodipine 10 mg tablet 10 mg PO DAILY 30 Days tab 10/12/17 03/07/19 History dutasteride 0.5 mg capsule 1 tab PO DAILY 30 Days 10/12/17 03/07/19 History gabapentin 300 mg capsule 300 mg PO DAILY PRN 30 Days cap 10/12/17 03/07/19 History labetalol 100 mg tablet 100 mg PO BID 30 Days tab 10/12/17 03/07/19 History lisinopril 40 mg tablet 40 mg PO DAILY 30 Days tab 10/12/17 03/07/19 History methadone 10 mg tablet 20 mg PO Q4H 30 Days tab 10/12/17 03/07/19 History omeprazole 40 mg capsule,delayed 40 mg PO DAILY 30 Days cap 10/12/17 03/07/19 History release tiotropium bromide 18 mcg capsule 1 cap INHALATION DAILY 30 Days 10/12/17 03/07/19 History with inhalation device Albuterol Sulfate [Albuterol HFA 2 puffs IH Q4HP PRN 03/07/19 03/07/19 History Inhaler] Empagliflozin [Jardiance] 25 mg PO DAILY 03/07/19 03/07/19 History Gabapentin [Gabapentin 300mg Cap] 600 mg PO PM 03/07/19 03/07/19 History Insulin NPH Hum/Reg Insulin Hm 25 units SQ DAILY 03/07/19 03/07/19 History [Novolin 70-30 Flexpen] Insulin NPH Hum/Reg Insulin Hm 40 unit SQ HS 03/07/19 03/07/19 History [Novolin 70-30 Flexpen] Meloxicam 15 mg PO DAILY 03/07/19 03/07/19 History Niacin [Niacin ER] 500 mg PO DAILY 03/07/19 03/07/19 History Simvastatin 40 mg PO HS 03/07/19 03/07/19 History hydroCHLOROthiazide [HCTZ 25mg 25 mg PO DAILY 03/07/19 03/07/19 History tab] Cefdinir [Omnicef 300mg Capsule] 300 mg PO BID #10 cap 03/11/19 Rx predniSONE [Deltasone 10mg tablet] 10 mg PO DAILY 5 Days #5 tab 03/11/19 Rx Prescriptions/Medication Reconciliation: New predniSONE [Deltasone 10mg tablet] 10 mg PO DAILY 5 Days #5 tab Cefdinir [Omnicef 300mg Capsule] 300 mg PO BID #10 cap Continued methadone 10 mg tablet 20 mg PO Q4H 30 Days tab labetalol 100 mg tablet 100 mg PO BID 30 Days tab amlodipine 10 mg tablet 10 mg PO DAILY 30 Days tab omeprazole 40 mg capsule,delayed release 40 mg PO DAILY 30 Days cap gabapentin 300 mg capsule 300 mg PO DAILY PRN 30 Days cap PRN Reason: neuropathy tiotropium bromide 18 mcg capsule with inhalation device 1 cap INHALATION DAILY 30 Days alprazolam 1 mg tablet 1 mg PO BIDP PRN 15 Days tab PRN Reason: Anxiety dutasteride 0.5 mg capsule 1 tab PO DAILY 30 Days lisinopril 40 mg tablet 40 mg PO DAILY 30 Days tab Insulin NPH Hum/Reg Insulin Hm [Novolin 70-30 Flexpen] 40 unit SQ HS Albuterol Sulfate [Albuterol HFA Inhaler] 2 puffs IH Q4HP PRN PRN Reason: Shortness Of Breath Or Wheezing Empagliflozin [Jardiance] 25 mg PO DAILY hydroCHLOROthiazide [HCTZ 25mg tab] 25 mg PO DAILY Insulin NPH Hum/Reg Insulin Hm [Novolin 70-30 Flexpen] 25 units SQ DAILY Meloxicam 15 mg PO DAILY Niacin [Niacin ER] 500 mg PO DAILY Simvastatin 40 mg PO HS Gabapentin [Gabapentin 300mg Cap] 600 mg PO PM - Problem Reconciliation Problems Reviewed?: Yes
== END 2019-03-11 17:41 | disposition home or self-care (01) | DRG 190 ==
LOC: ER 23:54 → ICU 23:54 → OBSVTOIN 03-07 04:53 → ICU 03-07 04:54 → 2ND 03-09 14:35
PROVIDERS: ADMIT Emergency Medicine; ATTEND Family Medicine
DX: R65.10 Systemic inflammatory response syndrome (SIRS) of non-infectious origin without acute organ dysfunction; J44.1 Chronic obstructive pulmonary disease with (acute) exacerbation; Z79.51 Long term (current) use of inhaled steroids; Z79.899 Other long term (current) drug therapy; Z72.0 Tobacco use; S32.009S Unspecified fracture of unspecified lumbar vertebra, sequela; I45.10 Unspecified right bundle-branch block; J18.9 Pneumonia, unspecified organism; I10 Essential (primary) hypertension; G83.11 Monoplegia of lower limb affecting right dominant side; Z79.4 Long term (current) use of insulin; Z79.84 Long term (current) use of oral hypoglycemic drugs; Z79.52 Long term (current) use of systemic steroids; S34.109S Unspecified injury to unspecified level of lumbar spinal cord, sequela; J44.0 Chronic obstructive pulmonary disease with (acute) lower respiratory infection
CPT/HCPCS: 36415; 71010; 71020; 71045; 71046; 71275; 80048; 80076; 81001; 82803; 82962; 83605; 83735; 83880; 84484; 85007; 85025; 86738; 87040; 87070; 87086; 87205; 87275; 87276; 93005; 93306; 94640; 94760; 94761; 96365; 96367; 96375; 99285; J0456; J2405; Q9966; Q9967

== ENCOUNTER 2019-04-11 09:50 | Day surgery (SDC) | payer MEDICARE, SELFPAY ==
[2019-04-10 10:36] VITALS: BMI 34.5
[2019-04-11] VITALS (12 sets, daily range): BP systolic 118–163; BP diastolic 67–84; PULSE 66–80; RESP 14–22; TEMP 36.2–43; O2SAT 88–95
[2019-04-11 10:22] LABS: POC Glucose,Bedside 171 (70-110)
[2019-04-11 10:38] LABS: Basophils # 0.1 K/mm3 (0-0.2); Basophils % 0.6 % (0.1-2.0); Eosinophils # 0.2 K/mm3 (0.0-0.4); Hematocrit 52.8 % (42.0-52.0); Hemoglobin 16.8 g/dL (14.1-18.0); Lymphocytes # 2.7 K/mm3 (0.7-4.5); Lymphocytes % 22.7 % (10-50); Mean Corpuscular HGB Conc 31.7 g/dL (31.8-35.4); Mean Corpuscular Hemoglobin 28.4 pg (27.0-31.2); Mean Corpuscular Volume 89.6 fl (80-94); Mean Platelet Volume 8.4 fl (7.4-10.4); Monocytes # 0.7 K/mm3 (0.1-1.0); Monocytes % 6.2 % (1.7-9.3); Neutrophils # 8.1 K/mm3 (1.8-7.8); Neutrophils % 68.6 % (37.0-80.0); Platelet Count 225 K/mm3 (142-424); Red Cell Distribution Width 14.2 % (11.5-17.5); White Blood Count 11.8 K/mm3 (4.8-10.8)
[2019-04-11 10:44] LABS: Blood Urea Nitrogen 13 mg/dL (7-18); Calcium 8.7 mg/dL (8.5-10.1); Carbon Dioxide 32 mmol/L (21.0-32.0); Chloride 102 mmol/L (98-107); Creatinine Clearance Estimated 253 mL/min (50-200); Creatinine,Serum 0.58 mg/dL (0.70-1.30); Estimated Glomerular Filt Rate 148 ml/min (>60); GFR (African American) 179 ML/MIN (>60); Glucose 156 mg/dL (74-106); Sodium 139 mmol/L (136-145)
--- NOTE | 2019-04-11 11:21 | HMH.ANESCL ---
[facility] Anesthesia Checklist - Patient Identification Patient Identification: Arm Band - Structural Data Admitted From: Home Planned Operative Procedure/s: cystoscopy, dilation of stricture, possible stone extraction Verified Documents: Surgical Consent, History and Physical - NPO Status Verified Time NPO: 00:00 - Additional verifications Anesthesia Reactions: No Hx Blood Transfusions: No Blood Transfusion Reaction: No - Airway Assessment C-Spine Mobility Assessed: Yes (mp3) TMJ Mobility Assessed: Yes Dentition: Good Dentition - Neurological Assessment Level of Consciousness: Awake, Alert - Anesthesia Plan Anesthesia Risk discussed: Yes ASA Class: III Anesthesia Type: General [facility] History I have reviewed the patient's past medical history: Yes Medical History: Reports:: Anxiety, Chronic Obstructive Pulmonary Disease (COPD), Diabetes Mellitus Type 2 (INSULIN DEPENDANT), Gastroesophageal Reflux Disease(GERD), Hyperlipidemia, Hypertension Denies:: Cancer, Diabetes Mellitus Type 1, Internal Pacemaker, MRSA, Seizures *Have you ever received a pneumonia vaccine?: Yes *Have you received a flu vaccine this season?: Yes Other Medical History: Reports: Arthritis. Denies: Blood Transfusion Reaction Anesthesia experience/problems:: nac Laterality Cases: Right: Arthroscopy Knee, Bilateral: Tonsillectomy Other Surgeries: Yes: Other. No: Pacemaker Amputation: Yes Fractures: No - *Social History Educational Level: Completed College Smoking Status: Former smoker Tobacco Type: cigarettes # Packs/Day (cigarettes): 2 #Yrs smoked (if former smoker): 40 Smoking End Date: 03/17/19 Alcohol Intake: never Alcohol Intake Frequency:: other Substance Use Type: denies use *Occupational Status:: employed, retired Housing: house Household Members: spouse *Travel in the last 8 weeks: None - Psychiatric History Pschychiatric History:: Reports:: Anxiety Family Hx:: Stroke, Hypertension, Diabetes
--- NOTE | 2019-04-11 12:39 | HMH.ANESI ---
[facility] Anesthesia Record Part I Intake, IV Amount: 1,000 Estimated blood loss (mL): 0 Urine output (mL): 0 Blood Pressure: 162/73 SaO2: 92 Pulse Rate: 80 Respiratory Rate: 16 Temperature: 98.6 F Patient is:: Drowsy, Stable Stable to PACU at:: 12:35
--- NOTE | 2019-04-11 15:28 | P.PN_ITS ---
[facility] Anesthesia Record Part II Discharge Time: 13:15 Destination: Surgical Day Care (OP Surgery) PACU nurse assessment reviewed?: Yes Patient Condition:: Good Anesthesia Complications:: None Swallowing reflex intact?: Yes Cyanosis?: No Blood Pressure: 133/78 Pulse Rate: 68 Temperature: 97.2 F Mental Status: Alert & Oriented Pain level:: 0 Nausea and/or vomitting:: None Intake, IV Amount: 0
--- NOTE | 2019-04-11 16:39 | HMH.OPNOTE ---
Date of procedure: 04/11/19 Pre-op Diagnosis:: Urinary slowing/urinary sprain/urinary difficulty Post-op Diagnosis:: Urethral calculi/prostatic calculi/bladder calculi Procedure performed:: Cystoscopy with removal of small bladder stone, removal of urethral stone and removal of prostatic stones Surgeon:: James Gresham MD TREATMENT SUPERVISOR:: Baldomero Pierce Anesthesia: GETA Estimated blood loss (mL): 0 Clinical Note:: 53-year-old white male with recent difficulty urinating. Symptoms suggest urethral obstruction. Operative findings:: Cystoscopy revealed stones in the prostatic urethra as well as one in the bladder. Operative note:: Patient taken to the operating room after informed consent was obtained. Placed on the operating table in the supine position and general anesthesia administered. Preoperative antibiotics and sequential compression devices placed. He was then placed into the dorsal lithotomy position and prepped and draped in the standard surgical fashion. The 22 Prydeinig cystoscope passed into the urethra was a little narrowing distally and this was dilated to 24 Prydeinig. The 22 Prydeinig scope then passed to the prostatic urethra where a urethral stone was noted. Flexible graspers were used to grasp the stone and it was removed. The scope was repassed and more prostatic urethral stones were noted in the prostatic ducts. The scope was passed on into the bladder and a 4 mm stone was noted in the bladder. This was grasped and removed as well. Bladder was examined in a systematic fashion. There is no evidence of mucosal abnormalities, trabeculation, cellule or diverticula formation. The ureteral orifices in their normal anatomic position. We passed the scope back into the prostatic urethra and a couple more of the prostatic stones were removed from the ducts. The bladder was emptied Urojet placed into the urethra at the end of the case. The patient tolerated procedure well without complication. Condition: stable Disposition: same day Specimens:: Stones Complications:: None
[2019-04-22 15:10] LABS: Ca oxalate dihydrate 10 % (.); Calcium phosphate 60 % (.)
[2019-04-24 17:35] LABS: Specimen Type Comment: (.)
== END 2019-04-11 13:45 | disposition home or self-care (01) ==
LOC: OR 09:51
PROVIDERS: PCP Family Medicine; Visit Provider Urology
PROC: 0TCB8ZZ Extirpation of Matter from Bladder, Via Natural or Artificial Opening Endoscopic (ICD-10-PCS; CPT 52310; principal; 2019-04-11 11:30)
DX: N42.0 Calculus of prostate (principal); N21.0 Calculus in bladder; E11.9 Type 2 diabetes mellitus without complications
CPT/HCPCS: 52310; 55899; 80048; 82370; 82962; 85025; 96374; J2405

== ENCOUNTER → 2019-04-24 20:27 | Outpatient (CLI) | payer MEDICARE, SELFPAY | PROVIDERS: PCP Family Medicine; Visit Provider Family Medicine | DX: G47.33 Obstructive sleep apnea (adult) (pediatric) (principal); R06.83 Snoring; E66.9 Obesity, unspecified ==

== ENCOUNTER → 2019-09-02 12:15 | Outpatient (CLI) | payer MEDICARE, SELFPAY ==
--- NOTE | 2019-09-02 12:21 | XR_ITS ---
PROCEDURE: XR KNEE RT 3V CLINICAL INDICATION: RT KNEE PAIN Posttraumatic pain COMPARISON: KNEE3R KNEE-3 VIEWS-RT from 03/18/2016 [id number] XR knee LT 3V from 05/04/2017 FINDINGS: There is a comminuted fracture involving the distal femur. The fracture begins at the medial aspect of the distal diaphysis with longitudinal component extending to the diaphyseal metaphyseal region where there is a transverse component extending laterally and then an additional longitudinal component which appears to extend to the articular surface. There is generalized osteopenia. A lucency is noted also along the base of the lateral tibial spine raising the suggestion of a possible tibial component of the fracture. There is chondrocalcinosis of the lateral meniscus. There is generalized osteopenia. There is a suprapatellar effusion IMPRESSION: Nondisplaced fracture of the distal femur with suspected intra-articular involvement and questionable fracture at the base of the lateral tibial spine. CT may provide further evaluation for confirmation of the above findings. Dictated by: Antonio Givens MD 09/02/2019 12:50 Electronically signed by Antonio Givens MD in [place] 09/02/2019 12:50
== END ==
PROVIDERS: PCP Family Medicine; Visit Provider Family Medicine
DX: M25.561 Pain in right knee (principal); W19.XXXA Unspecified fall, initial encounter
CPT/HCPCS: 73562

== ENCOUNTER 2019-09-09 09:12 | Outpatient (RCR) | payer MEDICARE, SELFPAY | END 2019-09-09 11:00 | disposition home or self-care (01) | LOC: PT 09:12 | PROVIDERS: PCP Family Medicine; Visit Provider Family Medicine | DX: G83.11 Monoplegia of lower limb affecting right dominant side (principal); G89.21 Chronic pain due to trauma; G89.29 Other chronic pain; J44.9 Chronic obstructive pulmonary disease, unspecified; M24.811 Other specific joint derangements of right shoulder, not elsewhere classified; L89.891 Pressure ulcer of other site, stage 1 | CPT/HCPCS: 97760 ==

== ENCOUNTER → 2019-09-23 13:42 | Outpatient (CLI) | payer MEDICARE, SELFPAY ==
--- NOTE | 2019-09-23 13:51 | XR_ITS ---
PROCEDURE: XR KNEE RT 2V CLINICAL INDICATION: Rt distal femur FX COMPARISON: KNEE3R KNEE-3 VIEWS-RT from 03/18/2016 [id number] XR knee LT 3V from 05/04/2017 XR KNEE RT 3V from 09/02/2019 FINDINGS: There is interval nonunion and diastasis of both the vertical and horizontal components of a complex fracture involving the medial distal tibial metadiaphysis extending into the intercondylar notch. Chondrocalcinosis and soft tissue edema is noted. IMPRESSION: Interval diastasis of a complex fracture of the distal medial tibia as above Dictated by: Trevon Olmos 09/23/2019 14:19 Electronically signed by Trevon Olmos in [place] 09/23/2019 14:19
== END ==
PROVIDERS: PCP Family Medicine; Visit Provider Orthopaedic Surgery
DX: S72.401A Unspecified fracture of lower end of right femur, initial encounter for closed fracture (principal)
CPT/HCPCS: 73560

== ENCOUNTER → 2019-10-28 09:14 | Outpatient (CLI) | payer MEDICARE, SELFPAY ==
--- NOTE | 2019-10-28 09:20 | XR_ITS ---
PROCEDURE: XR KNEE RT 3V CLINICAL INDICATION: knee pain COMPARISON: FINDINGS: There is an old fracture involving the distal femur oblique in nature extending into the intercondylar region of the distal femur. There is intra-articular involvement. Or fracture is comminuted and mildly displaced medially. IMPRESSION: No change intra-articular distal femur fracture Dictated by: Antonio Givens MD 10/29/2019 06:29 Electronically signed by Antonio Givens MD in [place] 10/29/2019 06:29
== END ==
PROVIDERS: PCP Family Medicine; Visit Provider Orthopaedic Surgery
DX: S72.409A Unspecified fracture of lower end of unspecified femur, initial encounter for closed fracture (principal)
CPT/HCPCS: 73562

== ENCOUNTER → 2019-11-05 08:56 | Outpatient (CLI) | payer MEDICARE, SELFPAY ==
--- NOTE | 2019-11-05 08:56 | XR_ITS ---
PROCEDURE: XR DEXA AXIAL SKELETON CLINICAL HISTORY: unspecified fracture; vitamin D deficiency COMPARISON: No exams were available for comparison FINDINGS: The right hip BMD is 0.860 with a t-score of -1.1. The left hip BMD is 0.893 with a t-score of -0.9. The radius 33 percent BMD is 0.811 with a t-score of -0.1. IMPRESSION: Osteopenia with moderate fracture risk. Treatment is advised. Suggest follow-up exam in 2 years Dictated b Antonio Givens MD 11/09/2019 07:51 Antonio Givens MD in [place] 11/09/2019 07:51
== END ==
PROVIDERS: PCP Family Medicine; Visit Provider Orthopaedic Surgery
DX: E55.9 Vitamin D deficiency, unspecified (principal); S72.409A Unspecified fracture of lower end of unspecified femur, initial encounter for closed fracture; Z87.310 Personal history of (healed) osteoporosis fracture; M85.89 Other specified disorders of bone density and structure, multiple sites
CPT/HCPCS: 77080

== ENCOUNTER → 2019-11-29 13:32 | Outpatient (CLI) | payer MEDICARE, SELFPAY ==
--- NOTE | 2019-11-29 13:37 | XR_ITS ---
PROCEDURE: XR KNEE RT 3V CLINICAL INDICATION: distal femur fracture follow up, out of brace COMPARISON: CR [id number] XR knee LT 3V from 05/04/2017 CR XR KNEE RT 3V from 09/02/2019 CR XR KNEE RT 2V from 09/23/2019 CR XR KNEE RT 3V from 10/28/2019 FINDINGS: Persistent fracture of the distal femur medially with transverse component medially and a curvilinear component extending to the articular surface distally. The medial fragment is displaced medially by 8-9 mm. Fracture line is still platelet visible. There may be some early callus formation. Osteoarthritic changes are present at the lateral compartment. There is an area of subchondral lucency and sclerosis at the interspinous region of the proximal tibia which may be due to an area of impaction fracture. CT of the knee may provide further evaluation IMPRESSION: Overall no change in the mildly displaced fracture of the distal femur. There may be some developing callus formation. The fracture line is still visible. There may also be a non displaced impaction injury of the interspinous region of the proximal tibia. CT may confirm. Dictated by: Antonio Givens MD 11/29/2019 13:58 Antonio Givens MD in [place] 11/29/2019 13:58
== END ==
PROVIDERS: PCP Family Medicine; Visit Provider Orthopaedic Surgery
DX: S72.409A Unspecified fracture of lower end of unspecified femur, initial encounter for closed fracture (principal)
CPT/HCPCS: 73562

== ENCOUNTER → 2019-12-13 07:35 | Outpatient (CLI) | payer MEDICARE, SELFPAY ==
--- NOTE | 2019-12-13 07:40 | XR_ITS ---
PROCEDURE: XR KNEE RT 3V CLINICAL INDICATION: distal femur fx Follow-up fracture COMPARISON: CR XR KNEE RT 3V from 09/02/2019 CR XR KNEE RT 2V from 09/23/2019 CR XR KNEE RT 3V from 10/28/2019 CR XR KNEE RT 3V from 11/29/2019 FINDINGS: Oblique intra-articular distal femur fracture once again noted. Fracture line is still visible. There is some callus formation. There is minimal medial displacement of the medial fracture fragment. There is some cortical sclerosis and suspected mild fragmentation of the lateral femoral condyle suggesting avascular necrosis. Suprapatellar effusion is present. There are osteoarthritic changes of the knee. A IMPRESSION: No change in the intra-articular distal femur fracture with fracture line still visible Avascular necrosis with mild cortical fragmentation and compression of the lateral femoral condyle Dictated by: Antonio Givens MD 12/13/2019 07:59 Antonio Givens MD in [place] 12/13/2019 07:59
== END ==
PROVIDERS: PCP Family Medicine; Visit Provider Orthopaedic Surgery
DX: S72.401K Unspecified fracture of lower end of right femur, subsequent encounter for closed fracture with nonunion (principal)
CPT/HCPCS: 73562

== ENCOUNTER → 2020-02-07 13:44 | Outpatient (CLI) | payer MEDICARE, SELFPAY ==
--- NOTE | 2020-02-07 13:49 | XR_ITS ---
PROCEDURE: XR KNEE RT 3V CLINICAL INDICATION: FX FU Follow-up fracture COMPARISON: CR XR KNEE RT 2V from 09/23/2019 CR XR KNEE RT 3V from 10/28/2019 CR XR KNEE RT 3V from 11/29/2019 CR XR KNEE RT 3V from 12/13/2019 FINDINGS: Ununited distal femur fracture is noted having a curvilinear contour extending from the medial aspect of the distal femur in a curvilinear pattern to the mid aspect of the distal femur articular surface. Fracture line is still widely visible with sclerosis of the fracture fragment margins. There is 1 cm medial displacement of the medial fracture fragment. There is some cortical sclerosis and flattening of the lateral femoral condyle suggesting avascular necrosis. There is a separate bony fragment along the medial aspect of the medial fracture fragment. IMPRESSION: Ununited distal femur fracture with possible avascular necrosis of the lateral femoral condyle overall not significantly changed Dictated by: Antonio Givens MD 02/07/2020 15:28 Antonio Givens MD in [place] 02/07/2020 15:28
== END ==
PROVIDERS: PCP Family Medicine; Visit Provider Orthopaedic Surgery
DX: S72.401K Unspecified fracture of lower end of right femur, subsequent encounter for closed fracture with nonunion (principal)
CPT/HCPCS: 73562

== ENCOUNTER 2023-08-03 10:22 | Emergency (ER) | payer MEDICARE, SELFPAY ==
[2023-08-03 10:23] VITALS: BP 181/84; PULSE 82; RESP 13; TEMP 36.9; O2SAT 95; BMI 26.6
--- NOTE | 2023-08-03 10:25 | ECG_ITS ---
APPROVED REPORT Exam: Resting ECG HR:83 bpm ECG Measurements Heart Rate 83 AXES TN 161 P 59 QRSd 170 QRS 83 QT 449 T 47 QTc 488 Conclusion SINUS RHYTHM RIGHT BUNDLE BRANCH BLOCK [120+ ms QRS DURATION, UPRIGHT V1, 40+ ms S IN I/aVL/V4/V5/V6] ABNORMAL ECG Electronically signed by : WESTON MANCILLA, 08/04/2023 06:08:50
--- NOTE | 2023-08-03 10:28 | CT_ITS ---
FINAL REPORT TECHNIQUE: Thin section axial CT with IV contrast supplemented with 3D MIP reconstruction. CLINICAL HISTORY: b/l visual blurriness FINDINGS: CT NECK ANGIO, WITHOUT AND WITH CONTRAST NASCET criteria and technique was utilized during interpretation. Aortic arch: Arch shows no significant narrowing. Great vessel origins are widely patent. Right carotid: No significant stenosis is seen of the cervical common or internal carotid artery. Left carotid: No significant stenosis is seen of the cervical common or internal carotid artery. Vertebrals: Left vertebral artery is dominant. No significant stenosis is present. IMPRESSION: No significant stenosis of the cervical carotid arteries This study was performed using automated techniques to achieve radiation exposure as low as reasonably Reviewed, Interpreted and Dictated by Puneet Lovett MD Transcribed by Krista Rodrigues Authenticated and . [facility]
--- NOTE | 2023-08-03 10:28 | CT_ITS ---
FINAL REPORT CLINICAL HISTORY: b/l visual blurriness FINDINGS: CTA HEAD TECHNIQUE: Thin section axial CT with contrast with 3D MIP reconstruction FINDINGS: No aneurysm is seen. Major intracranial vessels are patent without significant stenosis. . IMPRESSION: Unremarkable This study was performed using automated techniques to achieve radiation exposure as low as reasonably achievable Reviewed, Interpreted and Dictated by Puneet Lovett MD Transcribed by Krista Rodrigues Authenticated and [facility]
--- NOTE | 2023-08-03 10:28 | CT_ITS ---
FINAL REPORT TECHNIQUE: Axial images through the head/brain was performed by computed tomography. This study was performed with techniques to keep radiation doses as low as reasonably achievable (ALARA). Individualized dose reduction techniques using automated exposure control or adjustment of mA and/or kV according to the patient's size were employed. CLINICAL HISTORY: b/l visual blurriness FINDINGS: There is a rounded CSF density structure neither 3rd ventricle measuring 10 x 7 mm, may represent a colloid cyst. The remainder of the brain parenchyma is unremarkable. 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 There is also a small chronic lacunar infarct in the froylan. There is no hemorrhage. Bone windows show no evidence of fracture. IMPRESSION: No acute intracranial abnormality. Possible CSF density mass near the 3rd ventricle, could represent a colloid cyst. MRI with and without contrast should be considered. Old lacunar infarcts. Reviewed, Interpreted and Dictated by Puneet Lovett MD Transcribed by Krista Rodrigues Authenticated and [facility]
--- NOTE | 2023-08-03 10:29 | HMH.EDGENADL ---
Discharge Plan Disposition Patient Disposition: Home, Self-Care Chief Complaint: Neuro Symptoms/Deficit Prescriptions Prescriptions: No Action methadone 10 mg tablet 20 mg PO Q4H 30 Days lisinopril 40 mg tablet 40 mg PO DAILY 30 Days labetalol 100 mg tablet 100 mg PO BID 30 Days amlodipine 10 mg tablet 10 mg PO DAILY 30 Days omeprazole 40 mg capsule,delayed release(DR/EC) 40 mg PO DAILY 30 Days gabapentin 300 mg capsule 300 mg PO DAILY PRN (Reason: neuropathy) 30 Days tiotropium bromide 18 mcg capsule, w/inhalation device 1 cap INHALATION DAILY 30 Days alprazolam 1 mg tablet 1 mg PO BIDP PRN (Reason: Anxiety) 15 Days dutasteride 0.5 mg capsule 1 tab PO DAILY 30 Days insulin NPH and regular human 100 UNIT/ML insulin pen 40 unit SQ HS Patient Comments: pt states he take 20 to 25 units meloxicam 15 MG tablet 15 mg PO DAILY niacin 500 MG tablet extended release 24 hr 500 mg PO DAILY simvastatin 40 MG tablet 40 mg PO HS gabapentin 300 MG capsule 600 mg PO PM hydrochlorothiazide 25 MG tablet 25 mg PO DAILY albuterol sulfate 18 GM HFA aerosol inhaler 2 puffs IH Q4HP PRN (Reason: Shortness Of Breath Or Wheezing) insulin NPH and regular human 100 UNIT/ML insulin pen 25 units SQ DAILY empagliflozin 25 MG tablet 25 mg PO DAILY nitrofurantoin monohyd/m-cryst 100 MG capsule 100 mg PO BID Referrals Follow up/Referrals: Provider,Referral, MD [Primary Care Provider] - See instructions Activity Restrictions/Add. Instructions Additional Instructions/Restrictions: At this time it was felt you are safe to be discharged home. If new or worsening symptoms please do not hesitate to return the emergency department. Please maintain your appointment with Dr. Patton in the next couple of weeks. Please start taking 81 mg of aspirin daily (baby aspirin). It is important that you keep taking your blood pressure medicines and all other medicines that were prescribed to you by Dr. Patton as they were prescribed. Call Dr. Ku's office and ask to have cardiac MRI scheduled at Dr. Cummings's (Iveth's) request. Return to the emergency department promptly if you have any other concerning signs or symptoms. Clinical Impressions Clinical Impression: Acute CVA (cerebrovascular accident) Discharge ED Provider: Andrea Ackerman General Adult HPI <Jesus Manuel Fay MD - Last Filed: 08/03/23 15:23> General Chief complaint: Neuro Symptoms/Deficit Stated complaint: Possible CVA Time Seen by Provider: 08/03/23 10:24 History of Present Illness HPI narrative: Patient is a 57-year-old male with past medical history of insulin-dependent diabetes, hypertension, hyperlipidemia, L1 burst fracture status post surgical intervention with chronic deficits right lower extremity, is still ambulatory who presents emergency department for episodic visual blurriness. Patient has had mild frontal headache, difficulty seeing things that are close to him over the last week. Symptoms wax and wane. PCP was attempting to get an MRI which is scheduled for next Monday. No acute focal extremity deficits. He has had intermittent forgetfulness over the last week that is not normal for his baseline. No other acute complaints at this time. Related Data Home Medications Medication Instructions Recorded Confirmed alprazolam 1 mg tablet 1 mg PO BIDP PRN Anxiety 15 days 10/12/17 09/10/20 amlodipine 10 mg tablet 10 mg PO DAILY htn 30 days 10/12/17 09/10/20 dutasteride 0.5 mg capsule 1 tab PO DAILY prostate 30 days 10/12/17 09/10/20 gabapentin 300 mg capsule 300 mg PO DAILY PRN neuropathy 30 10/12/17 09/10/20 days labetalol 100 mg tablet 100 mg PO BID htn 30 days 10/12/17 09/10/20 lisinopril 40 mg tablet 40 mg PO DAILY htn 30 days 10/12/17 09/10/20 methadone 10 mg tablet 20 mg PO Q4H replacement therapy 10/12/17 09/10/20 30 days omeprazole 40 mg capsule,delayed 40 mg PO DAILY ppi 30 days 10/12/17 09/10/20 release tiotropium bromide 18 mcg capsule 1 cap inhalation DAILY COPD 30 days 10/12/17 09/10/20 with inhalation device albuterol sulfate 90 mcg/actuation 2 puffs IH Q4HP PRN Shortness Of 03/07/19 09/10/20 aerosol inhaler Breath Or Wheezing empagliflozin 25 mg tablet 25 mg PO DAILY Diabetes 03/07/19 09/10/20 gabapentin 300 mg capsule 600 mg PO PM neuropathy 03/07/19 09/10/20 hydrochlorothiazide 25 mg tablet 25 mg PO DAILY Hypertension 03/07/19 09/10/20 insulin NPH-regular 70-30 U-100 25 units SQ DAILY Diabetes 03/07/19 09/10/20 insulin 100 unit/mL subcutaneous pen insulin NPH-regular 70-30 U-100 40 unit SQ HS Diabetes 03/07/19 09/10/20 insulin 100 unit/mL subcutaneous pen meloxicam 15 mg tablet 15 mg PO DAILY inflammation 03/07/19 09/10/20 niacin 500 mg tablet,extended 500 mg PO DAILY Supplement 03/07/19 09/10/20 release 24 hr simvastatin 40 mg tablet 40 mg PO HS Cholesterol 03/07/19 09/10/20 nitrofurantoin 100 mg PO BID Infection 04/10/19 09/10/20 monohydrate/macrocrystals 100 mg capsule Allergies Allergy/AdvReac Type Severity Reaction Status Date / Time butorphanol [From STADOL] Allergy Unknown UNKNOWN Verified 09/10/20 15:36 ketorolac [From TORADOL] Allergy Unknown UNKNOWN Verified 09/10/20 15:36 morphine [MORPHINE] AdvReac Unknown hiccups Verified 08/03/23 13:49 PFSH <Jesus Manuel Fay MD - Last Filed: 08/03/23 15:23> PFS Disclaimer: The information contained in this section may have been updated after the patient was seen, as this information can be updated by other users. Social History Smoking Status: Never smoker second hand exposure: Yes alcohol intake: never substance use type: denies use current occupational status: employed and retired Travel in the last 8 weeks: None household members: spouse housing: house current occupational exposures/hazards: No caffeine: Yes <Jesus Manuel Fay MD - Last Filed: 08/03/23 15:23> ROS Obtained: Yes Systems reviewed as appropriate & no additional complaints except as documented Physical Exam <Jesus Manuel Fay MD - Last Filed: 08/03/23 15:23> General General appearance: alert and in no apparent distress Head Head exam: atraumatic and normocephalic Eye Eye exam: Present PERRL and EOMI ENT ENT exam: Present mucous membranes moist Neck Neck exam: Present normal inspection Chest Chest inspection: Present normal inspection and symmetric chest wall rise Respiratory Respiratory exam: Present normal lung sounds bilaterally; Absent respiratory distress Cardiovascular Cardiovascular exam: Present regular rate and normal rhythm Abdominal Exam Abdominal exam: Present soft; Absent tenderness Extremities Exam Extremities exam: Present other (Right right lower extremity in brace) Neurological Exam Neurological exam: Present alert, CN II-XII intact and other (Bilateral upper extremities and left lower extremity 5 out of 5 strength, right lower extremity is at baseline and braced. No facial droop. ) Psychiatric Psychiatric exam: Present normal affect Skin Skin exam: Present warm and dry Medical Decision Making <Jesus Manuel Fay MD - Last Filed: 08/03/23 15:23> Sp Inquiry Pt receiving controlled substance: No Reason not queried -: Emergent pt cond-no time Vital Signs: 08/03/23 10:23 08/03/23 14:40 Temperature 98.4 F Temperature Source Oral Pulse Rate 72 Pulse Rate [Left Radial] 82 Respiratory Rate 13 Blood Pressure 168/84 H Blood Pressure [Right Arm] 181/84 H Blood Pressure Mean [Right Arm] 116 02 Sat by Pulse Oximetry 95 96 Oxygen Delivery Method Room Air Room Air Lab Data Lab Results 08/03/23 10:24: WBC 12.5 H, RBC 5.85, Hgb 17.2, Hct 53.0 H, MCV 90.6, MCH 29.3, MCHC 32.4, RDW 14.7, Plt Count 231, MPV 8.3, Neut % (Auto) 67.2, Lymph % (Auto) 26.0, [place] % (Auto) 4.4, Eos % (Auto) 1.5, Baso % (Auto) 0.9, Neut # (Auto) 8.4 H, Lymph # (Auto) 3.3, [place] # (Auto) 0.6, Eos # (Auto) 0.2, Baso # (Auto) 0.1, Sodium 138, Potassium 3.8, Chloride 102, Carbon Dioxide 35 H, Anion Gap 4.8 L, BUN 13, Creatinine 0.60 L, Estimated Creat Clear 161, Estimated GFR 140, Est GFR ( Amer) 169, Glucose 219 H, Calcium 8.9, Magnesium 1.5 L, Total Bilirubin 0.3, AST 25, ALT 22, Alkaline Phosphatase 95, Total Protein 6.4, Albumin 3.3 L, Globulin 3.1, Albumin/Globulin Ratio 1.1 08/03/23 10:24 08/03/23 10:24 Orders (Tests/Meds): ED MEDICATIONS Generic Name Dose Route Start Last Admin Trade Name Freq PRN Reason Stop Dose Admin Aspirin 81 mg 08/03/23 15:30 08/03/23 15:43 Aspirin 81mg Chewable Tablet PO 09/02/23 15:29 81 mg DAILY JUNE Administration Discontinued Medications Generic Name Dose Route Start Last Admin Trade Name Albin PRN Reason Stop Dose Admin Gadoteridol 16 ml 08/03/23 13:17 08/03/23 13:18 Gadoteridol Inj 17ml Syringe IV 08/03/23 13:18 16 ml ONCE ONE Administration Iopamidol 100 ml 08/03/23 11:04 08/03/23 11:07 Iopamidol-370 (76%);100ml Bottle IV 08/03/23 11:05 100 ml ONCE ONE Administration Morphine Sulfate 4 mg 08/03/23 13:49 08/03/23 13:51 Morphine 4mg/Ml Syringe IV 08/03/23 13:50 4 mg ONCE ONE Administration Sodium Chloride 10 ml 08/03/23 11:04 08/03/23 11:07 Sodium Chloride 0.9% 10ml Syr (Rad Only) IV 08/03/23 11:05 10 ml ONCE ONE Administration Sodium Chloride 50 ml 08/03/23 11:04 08/03/23 15:59 0.9 % Sodium Chloride 50 Ml Vial IV 08/03/23 11:05 Not Given ONCE ONE Sodium Chloride 10 ml 08/03/23 13:17 08/03/23 13:19 Sodium Chloride 0.9% 10ml Flush Syringe IV 08/03/23 13:18 10 ml ONCE ONE Administration ORDERS Category Date Time Status CT angio head Stat Cat Scan 08/03/23 10:[address] angio neck Stat Cat Scan 08/03/23 10:[address] head/brain wo con Stat Cat Scan 08/03/23 10:28 Completed CBC w/Auto Diff [Complete Blood Count Auto Diff] Stat Lab 08/03/23 10:24 Completed CMP [Comprehensive Metabolic Panel] Stat Lab 08/03/23 10:24 Completed MG [Magnesium] Stat Lab 08/03/23 10:24 Completed CA echo doppler complete Stat Y 08/03/23 14:43 Completed ECG Data Tracing #1: Independently interpreted by me, rate is 83, rhythm is regular, axis is rightward deviated, right bundle branch block, no ST elevation in anatomical contiguous leads, QTc 488. Medical Decision Narrative: In summary patient is a 57-year-old male with past medical history described above presents emergency department for evaluation of intermittent vision changes. Patient is hemodynamically stable nontoxic-appearing upon arrival, afebrile. NIH is 0, largely nonfocal neurologic exam. Differential includes posterior CVA, intracranial mass, among others. Given duration of symptoms over the last week and overall well-appearing bacterial meningitis exceptionally unlikely. Workup will be conducted with hematologic labs, noncontrasted CT scan of the head, CTA of the head and neck. CT imaging shows no acute intracranial abnormality, possible CSF density mass near the third ventricle that could represent a colloid cyst for which MRI was recommended, old lacunar infarcts, CTA head and neck unremarkable. Hematologic labs reviewed by me and are nonactionable, mild hypomagnesemia. Visual acuity 20/70 bilaterally with unknown baseline. MRI shows acute left occipital lobe infarct without hemorrhage compatible with AIRPORT BAGGAGE SCREENER infarct. Patient is well outside intervenable stroke window however will benefit from secondary stroke prophylaxis. The case was discussed with patient and family at bedside, they really wish to forego admission. The risks and benefits of this were discussed, patient does need rapid secondary stroke prophylaxis however they wish to follow-up on an expedited outpatient basis with Dr. Patton. If patient has an echo that is not remarkable for any evidence of cardioembolic etiology it is reasonable for outpatient management. Fortunately Dr. Patton contacted me and we discussed the case. He is already managing his blood pressure and is on statin therapy. We will start him on daily aspirin. Formal echo was pending at time of transition of care to the oncoming physician, Dr. Ackerman. <Andrea Ackerman MD - Last Filed: 08/03/23 16:36> Vital Signs: 08/03/23 10:23 08/03/23 14:40 Temperature 98.4 F Temperature Source Oral Pulse Rate 72 Pulse Rate [Left Radial] 82 Respiratory Rate 13 Blood Pressure 168/84 H Blood Pressure [Right Arm] 181/84 H Blood Pressure Mean [Right Arm] 116 02 Sat by Pulse Oximetry 95 96 Oxygen Delivery Method Room Air Room Air Lab Data Lab Results 08/03/23 10:24: WBC 12.5 H, RBC 5.85, Hgb 17.2, Hct 53.0 H, MCV 90.6, MCH 29.3, MCHC 32.4, RDW 14.7, Plt Count 231, MPV 8.3, Neut % (Auto) 67.2, Lymph % (Auto) 26.0, [place] % (Auto) 4.4, Eos % (Auto) 1.5, Baso % (Auto) 0.9, Neut # (Auto) 8.4 H, Lymph # (Auto) 3.3, [place] # (Auto) 0.6, Eos # (Auto) 0.2, Baso # (Auto) 0.1, Sodium 138, Potassium 3.8, Chloride 102, Carbon Dioxide 35 H, Anion Gap 4.8 L, BUN 13, Creatinine 0.60 L, Estimated Creat Clear 161, Estimated GFR 140, Est GFR ( Amer) 169, Glucose 219 H, Calcium 8.9, Magnesium 1.5 L, Total Bilirubin 0.3, AST 25, ALT 22, Alkaline Phosphatase 95, Total Protein 6.4, Albumin 3.3 L, Globulin 3.1, Albumin/Globulin Ratio 1.1 Orders (Tests/Meds): ED MEDICATIONS Generic Name Dose Route Start Last Admin Trade Name Albin PRN Reason Stop Dose Admin Aspirin 81 mg 08/03/23 15:30 08/03/23 15:43 Aspirin 81mg Chewable Tablet PO 09/02/23 15:29 81 mg DAILY JUNE Administration Discontinued Medications Generic Name Dose Route Start Last Admin Trade Name Albin PRN Reason Stop Dose Admin Gadoteridol 16 ml 08/03/23 13:17 08/03/23 13:18 Gadoteridol Inj 17ml Syringe IV 08/03/23 13:18 16 ml ONCE ONE Administration Iopamidol 100 ml 08/03/23 11:04 08/03/23 11:07 Iopamidol-370 (76%);100ml Bottle IV 08/03/23 11:05 100 ml ONCE ONE Administration Morphine Sulfate 4 mg 08/03/23 13:49 08/03/23 13:51 Morphine 4mg/Ml Syringe IV 08/03/23 13:50 4 mg ONCE ONE Administration Sodium Chloride 10 ml 08/03/23 11:04 08/03/23 11:07 Sodium Chloride 0.9% 10ml Syr (Rad Only) IV 08/03/23 11:05 10 ml ONCE ONE Administration Sodium Chloride 50 ml 08/03/23 11:04 08/03/23 15:59 0.9 % Sodium Chloride 50 Ml Vial IV 08/03/23 11:05 Not Given ONCE ONE Sodium Chloride 10 ml 08/03/23 13:17 08/03/23 13:19 Sodium Chloride 0.9% 10ml Flush Syringe IV 08/03/23 13:18 10 ml ONCE ONE Administration ORDERS Category Date Time Status CT angio head Stat Cat Scan 08/03/23 10:[address] angio neck Stat Cat Scan 08/03/23 10:[address] head/brain wo con Stat Cat Scan 08/03/23 10:28 Completed CBC w/Auto Diff [Complete Blood Count Auto Diff] Stat Lab 08/03/23 10:24 Completed CMP [Comprehensive Metabolic Panel] Stat Lab 08/03/23 10:24 Completed MG [Magnesium] Stat Lab 08/03/23 10:24 Completed CA echo doppler complete Stat Y 08/03/23 14:43 Completed Medical Decision Narrative: In summary patient is a 57-year-old male with past medical history described above presents emergency department for evaluation of intermittent vision changes. Patient is hemodynamically stable nontoxic-appearing upon arrival, afebrile. NIH is 0, largely nonfocal neurologic exam. Differential includes posterior CVA, intracranial mass, among others. Given duration of symptoms over the last week and overall well-appearing bacterial meningitis exceptionally unlikely. Workup will be conducted with hematologic labs, noncontrasted CT scan of the head, CTA of the head and neck. CT imaging shows no acute intracranial abnormality, possible CSF density mass near the third ventricle that could represent a colloid cyst for which MRI was recommended, old lacunar infarcts, CTA head and neck unremarkable. Hematologic labs reviewed by me and are nonactionable, mild hypomagnesemia. Visual acuity 20/70 bilaterally with unknown baseline. MRI shows acute left occipital lobe infarct without hemorrhage compatible with AIRPORT BAGGAGE SCREENER infarct. Patient is well outside intervenable stroke window however will benefit from secondary stroke prophylaxis. The case was discussed with patient and family at bedside, they really wish to forego admission. The risks and benefits of this were discussed, patient does need rapid secondary stroke prophylaxis however they wish to follow-up on an expedited outpatient basis with Dr. Patton. If patient has an echo that is not remarkable for any evidence of cardioembolic etiology it is reasonable for outpatient management. Fortunately Dr. Patton contacted me and we discussed the case. He is already managing his blood pressure and is on statin therapy. We will start him on daily aspirin. Formal echo was pending at time of transition of care to the oncoming physician, Dr. Ackerman. Tyron: I assumed primary responsibility for this patient after signout from previous physician. On my evaluation, patient very ready to leave. Asymptomatic, patient appears very well. NIHSS 0. Cardiology was contacted and case was discussed at length, they recommended echo. Echo was negative for acute LV thrombus, they recommended outpatient evaluation with cardiac MRI. I feel this is appropriate. Because patient at baseline without signs or symptoms of clinical decompensation, deemed appropriate for discharge. Results were relayed to patient who voiced understanding and were agreeable to outpatient management and follow up. I discussed my clinical impression with patient and answered all questions. At this time, the evidence for any other entities in the differential is insufficient to warrant any further testing or ED observation. This was explained as well. Advisory was given that persistent or worsening symptoms require further evaluation. I confirmed the understanding of this discussion. Critical Care <Jesus Manuel Fay MD - Last Filed: 08/03/23 15:23> Critical Care Time Critical Care Time: No
--- NOTE | 2023-08-03 10:29 | PC.NURSE ---
[id number], radiology called for ct
--- NOTE | 2023-08-03 10:30 | PC.NURSE ---
20 lft ac, labs sent
[2023-08-03 10:40] LABS: Chloride 102 mmol/L (98-107); Potassium 3.8 mmoL/L (3.5-5.1); Sodium 138 mmol/L (136-145)
[2023-08-03 10:42] LABS: Alanine Aminotransferase 22 U/L (12-78); Aspartate Amino Transferase 25 U/L (17-59); Blood Urea Nitrogen 13 mg/dl (9-20); Creatinine Clearance Estimated 161 mL/min (50-200); Estimated Glomerular Filt Rate 140 ml/min (>60); GFR (African American) 169 ML/MIN (>60)
[2023-08-03 10:43] LABS: Albumin Level 3.3 g/dl (3.5-5.0); Albumin/Globulin Ratio 1.1 (1.1-1.8); Alkaline Phosphatase 95 U/L (38-126); Anion Gap 4.8 mEq/L (5-15); Bilirubin,Total 0.3 mg/dl (0.2-1.3); Calcium 8.9 mg/dl (8.4-10.2); Carbon Dioxide 35 mmol/L (22.0-30.0); Globulin 3.1 g/dL (1.3-3.2); Glucose 219 mg/dl (74-100); Magnesium 1.5 mg/dl (1.6-2.3); Total Protein,Serum 6.4 g/dl (6.3-8.2)
--- NOTE | 2023-08-03 10:47 | PC.NURSE ---
pt visual test for both eyes were 20/100 left eye 20/100 right eye 20/100
[2023-08-03 10:51] LABS: Basophils # 0.1 K/mm3 (0-0.2); Basophils % 0.9 % (0.1-2.0); Eosinophils # 0.2 K/mm3 (0.0-0.4); Eosinophils % 1.5 % (0.1-12.0); Hemoglobin 17.2 g/dL (14.1-18.0); Lymphocytes # 3.3 K/mm3 (0.7-4.5); Mean Corpuscular HGB Conc 32.4 g/dL (31.8-35.4); Mean Corpuscular Hemoglobin 29.3 pg (27.0-31.2); Mean Corpuscular Volume 90.6 fl (80-94); Mean Platelet Volume 8.3 fl (7.4-10.4); Monocytes # 0.6 K/mm3 (0.1-1.0); Monocytes % 4.4 % (1.7-9.3); Neutrophils # 8.4 K/mm3 (1.8-7.8); Neutrophils % 67.2 % (37.0-80.0); Platelet Count 231 K/mm3 (142-424); Red Blood Count 5.85 M/mm3 (4.60-6.20); Red Cell Distribution Width 14.7 % (11.5-17.5); White Blood Count 12.5 K/mm3 (4.8-10.8)
--- NOTE | 2023-08-03 10:56 | HMH.ITSTN ---
when engine test cell technician went to get patient for ct scan , pt needed to use the restroom prior to scan , delaying ct scan of head wo and angio head and neck
--- NOTE | 2023-08-03 11:00 | PC.NURSE ---
PT IS AT CT
[2023-08-03] MEDS: SODIUM CHLORIDE 0.9% 10ML SYR (RAD ONLY) 10 ML IV (11:07)
[2023-08-03] MEDS: IOPAMIDOL-370 (76%);100ML BOTTLE 100 ML IV (11:07)
--- NOTE | 2023-08-03 12:32 | MR_ITS ---
FINAL REPORT TECHNIQUE: Multiplanar MR, without and with gadolinium enhancement CLINICAL HISTORY: R/O STROKE COMPARISON: CT head earlier same day FINDINGS: There is mild atrophy with chronic microvascular changes. There is restricted diffusion in the left occipital lobe compatible with acute left BODY CARE MANAGER infarct. There is no associated hemorrhage. The ventricles are normal. There is a chronic lacunar infarct in the right basal ganglia. 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 This does not appear to represent an intraventricular colloid cyst. IMPRESSION: Acute left occipital infarct without hemorrhage compatible with BODY CARE MANAGER infarct. Other chronic changes as above. Reviewed, Interpreted and Dictated by Puneet Lovett MD Transcribed by Sunita Briggs Authenticated and [facility]
--- NOTE | 2023-08-03 12:32 | PC.NURSE ---
call and talked with care management for MRI approval.
--- NOTE | 2023-08-03 12:37 | PC.NURSE ---
PT GONE TO MRI
[2023-08-03] MEDS: GADOTERIDOL INJ 17ML SYRINGE 16 ML IV (13:18)
[2023-08-03] MEDS: SODIUM CHLORIDE 0.9% 10ML FLUSH SYRINGE 10 ML IV (13:19)
--- NOTE | 2023-08-03 13:42 | PC.NURSE ---
pt back from MRI
[2023-08-03] MEDS: MORPHINE 4MG/ML SYRINGE 4 MG IV (13:51)
--- NOTE | 2023-08-03 14:28 | PC.NURSE ---
Dr. Fay at bedside
--- NOTE | 2023-08-03 14:37 | PC.NURSE ---
Visual Acuity R 20/70, L 20/70
[2023-08-03 14:40] VITALS: BP 168/84; PULSE 72; O2SAT 96
--- NOTE | 2023-08-03 14:40 | PC.NURSE ---
Dr. Fay s/w Meli Gomez APRN in Cardiology clinic
--- NOTE | 2023-08-03 14:43 | CA_ITS ---
APPROVED REPORT EXAM: Comprehensive 2D, Doppler, and color-flow Echocardiogram Head Resident: Sadia Ortega RDCS Ht: 5 ft 9 in Wt: 180lbs BSA: 1.98 BP: 181/84 mmHg Indications: CVA, VISION DISTURBANCE M-Mode Dimensions RVDd 2.51 cm (0.9-2.6) LA Diam 4.43 cm (1.9-4.0) LVDd 5.78 cm (3.5-5.7) LVDs 4.16 cm (3.5-5.7) IVSd 0.89 cm (0.6-1.1) PWd 1.06 cm (0.6-1.1) EF (Teich) 53.50% FS 28.00% EDV (Teich) 165.20 mL ESV (Teich) 76.80 mL LV Diastology E Decel Time 287 (160-240 msec) E/A Ratio 0.7 Mitral Valve MV E Max Taurus. 61.0 (40-130 cm/s) MV A Velocity 82.0 (40-130 cm/s) E/A Ratio 0.74 MV PHT 84.0 ms Left Ventricle The left ventricle is normal size. The left ventricular systolic function is normal. The left ventricular ejection fraction is within the normal range. There is increased in LV wall thickness. IVSd is 1.4 cm. No evidence of LVOT obstruction at rest or with Valsalva. There is normal LV segmental wall motion. Transmitral Doppler flow pattern suggests impaired LV relaxation. LVEF is 55%. Right Ventricle The right ventricle is normal size. The right ventricular systolic function is normal. Atria The left atrium size is normal. The right atrium size is normal. There is no Doppler evidence of interatrial shunt. Aortic Valve The aortic valve is mildly thickened. Trace aortic regurgitation. There is no aortic valvular stenosis. Mitral Valve The mitral valve leaflets are mildly thickened. No evidence of systolic anterior motion. Mitral valve leaflets. Trace mitral regurgitation. No evidence of mitral valve stenosis. Tricuspid Valve The tricuspid valve leaflets are thin and pliable. Trace tricuspid regurgitation. There is insufficient TR jet to estimate RVSP. Pulmonic Valve The pulmonary valve is normal in structure. Trace pulmonic regurgitation. Great Vessels The aortic root is normal in size. The ascending aorta is normal in size. IVC is normal in size and collapses >50% with inspiration. Pericardium There is no pericardial effusion. Other Information Study Quality: Fair Conclusion Normal biventricular systolic function. There is increased in LV wall thickness. IVSd is 1.4 cm. No significant valvular stenosis or regurgitation. This study does not include ultrasound enhancing agent (Definity) to conclusively rule out LV thrombus, but in the available images no masses are visualized. In the setting of increased LV wall thickness, further outpatient evaluation with cardiac MRI (HCM protocol) is suggested. Electronically signed by : Iveth Cummings MD 08/03/2023 16:22:09
--- NOTE | 2023-08-03 15:11 | PC.NURSE ---
Dr. Fay is s/w Dr. Patton, pt's pcp
[2023-08-03] MEDS: ASPIRIN 81MG CHEWABLE TABLET 81 MG PO (15:43)
--- NOTE | 2023-08-03 16:29 | PC.NURSE ---
Dr. Ackerman updated that pt's echo has been read.
[2023-08-03 16:32] VITALS: BP 198/86; PULSE 87; O2SAT 95
[2023-08-03 16:48] VITALS: BP 196/86; PULSE 87; RESP 16; TEMP 36.6
== END 2023-08-03 16:48 | disposition home or self-care (01) ==
PROVIDERS: Emergency Medicine; Emergency Provider Emergency Medicine
DX: I63.89 Other cerebral infarction (principal); I45.19 Other right bundle-branch block; E11.9 Type 2 diabetes mellitus without complications; I10 Essential (primary) hypertension; E78.5 Hyperlipidemia, unspecified; Z79.4 Long term (current) use of insulin; Z79.84 Long term (current) use of oral hypoglycemic drugs
CPT/HCPCS: 70450; 70496; 70498; 70553; 80053; 83735; 85025; 93005; 93306; 96374; 99285; A9576; Q9967

== ENCOUNTER 2024-05-05 13:39 | Inpatient (IN) | payer MEDICARE, SELFPAY ==
[2024-05-05] VITALS (21 sets, daily range): BP systolic 156–194; BP diastolic 75–97; PULSE 82–104; RESP 12–36; TEMP 36.6–37.9; O2SAT 86–100; BMI 32.5; BMI 33.6
--- NOTE | 2024-05-05 13:47 | ECG_ITS ---
APPROVED REPORT Exam: Resting ECG HR:95 bpm ECG Measurements Heart Rate 95 AXES [place] 157 P 64 QRSd 164 QRS 79 QT 405 T 61 QTc 458 Conclusion Sinus rhythm Right bundle branch block Electronically signed by : RADHA NEGRO, 05/06/2024 13:21:21
--- NOTE | 2024-05-05 13:47 | XR_ITS ---
PROCEDURE INFORMATION: Exam: XR Chest Exam date and time: 05/05/2024 1:50 PM Age: 58 years old Clinical indication: Shortness of breath; Additional info: SOA cp TECHNIQUE: Imaging protocol: Radiologic exam of the chest. Views: 1 view. COMPARISON: CR XR CHEST PORTABLE 03/08/2019 8:35 AM FINDINGS: Lungs: Streaky airspace opacities in lower lobes could be attributed to atelectasis versus developing pneumonia/aspiration in the appropriate clinical context. Pleural spaces: Unremarkable. No pleural effusion. No pneumothorax. Heart/Mediastinum: Unremarkable. No cardiomegaly. Bones/joints: Unremarkable. IMPRESSION: Streaky airspace opacities in lower lobes could be attributed to atelectasis versus developing pneumonia/aspiration in the appropriate clinical context.
[2024-05-05 13:58] LABS: Lactate Venous 1.4 mmol/L (0.4-2.0); VBG HCO3 30.6 mmol/L (23-30); VBG Oxygen Saturation 73.2 % (50-70); VBG PH 7.36 mmol/L (7.31-7.41); VBG PO2 36.7 mmol/L (28-40); VBG Total CO2 32.3 mmol/L (23-27)
[2024-05-05 14:00] LABS: Coronavirus 19, PCR Not Detected (NotDetected); Influenza B, PCR Not Detected (NotDetected)
[2024-05-05 14:04] LABS: Alanine Aminotransferase 24 U/L (12-78); Albumin Level 3.9 g/dl (3.5-5.0); Albumin/Globulin Ratio 1.1 (1.1-1.8); Alkaline Phosphatase 113 U/L (38-126); Aspartate Amino Transferase 40 U/L (17-59); Bilirubin,Total 0.3 mg/dl (0.2-1.3); Blood Urea Nitrogen 12 mg/dl (9-20); Calcium 8.6 mg/dl (8.4-10.2); Carbon Dioxide 34 mmol/L (22.0-30.0); Chloride 95 mmol/L (98-107); Estimated Glomerular Filt Rate 172 ml/min (>60); GFR (African American) 208 ML/MIN (>60); Globulin 3.4 g/dL (1.3-3.2); Glucose 209 mg/dl (74-100); Sodium 135 mmol/L (136-145); Total Protein,Serum 7.3 g/dl (6.3-8.2)
[2024-05-05 14:05] LABS: Magnesium 1.4 mg/dl (1.6-2.3)
[2024-05-05 14:11] LABS: Creatinine Clearance Estimated 254 mL/min (50-200)
[2024-05-05 14:16] LABS: NT Pro Brain Natriuretic Pep. 1690 pg/mL (0-125); Troponin I 0.02 ng/ml (0.00-0.034)
--- NOTE | 2024-05-05 14:16 | PC.NURSE ---
Purple top Re-drawn and sent to the lab at their request.
[2024-05-05 14:21] LABS: Basophils # 0.1 K/mm3 (0-0.2); Basophils % 0.3 % (0.1-2.0); Hematocrit 46.7 % (42.0-52.0); Hemoglobin 15.1 g/dL (14.1-18.0); Lymphocytes # 0.5 K/mm3 (0.7-4.5); Lymphocytes % 3.4 % (10-50); Mean Corpuscular HGB Conc 32.3 g/dL (31.8-35.4); Mean Corpuscular Hemoglobin 27.6 pg (27.0-31.2); Mean Corpuscular Volume 85.4 fl (80-94); Mean Platelet Volume 9.8 fl (7.4-10.4); Monocytes # 0.5 K/mm3 (0.1-1.0); Monocytes % 3.4 % (1.7-9.3); Neutrophils # 13.8 K/mm3 (1.8-7.8); Neutrophils % 90.7 % (37.0-80.0); Platelet Count 240 K/mm3 (142-424); Red Blood Count 5.47 M/mm3 (4.60-6.20); Red Cell Distribution Width 14.3 % (11.5-17.5); White Blood Count 15.2 K/mm3 (4.8-10.8)
[2024-05-05 14:26] LABS: MANUAL DIFFERENTIAL MANUAL DIFFERENTIAL (MANUAL DIFF)
[2024-05-05] MEDS: MAGNESIUM SULFATE IN WATER 2 GM/50 ML PIGGYBACK IV ×3 (14:30→21:18)
[2024-05-05] MEDS: IPRATROPIUM/ALBUTEROL 3 ML NEB IH ×4 (14:30→23:19)
[2024-05-05 14:42] LABS: Influenza A, PCR Detected (NotDetected)
[2024-05-05 14:43] LABS: Lymphocytes % 3 % (10-50); Monocytes % 3 % (2-9); Neutrophils % 93 % (42-76); Platelet Estimate Normal; RBC Morphology Normal; Total Cells Counted 100
--- NOTE | 2024-05-05 15:00 | PC.NURSE ---
rounded on pt at this time, pt reports he is unable to provide urine sample at this time. will try again.
--- NOTE | 2024-05-05 15:01 | ED_ITS ---
Discharge Plan Disposition Patient Disposition: Admitted Condition: Fair Discharge ED Provider: Andrea Ackerman HPI <Dionne Nieves APRN - Last Filed: 05/05/24 21:46> General Chief Complaint: Shortness of Breath/Dyspnea Stated Complaint: chest pain Time Seen by Provider: 05/05/24 13:41 Mode of Arrival: Wheelchair Source of Information: Patient Limitations: No Limitations Description of Symptoms (Recalled from ER Triage Doc. by RN): pt presents to ED with c/o shortness of air, chest pain. pt reprots chest pain and soa began last night. 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 pt hooked up to oxygen and titrated up to 5L NC. new oxygen requirement. pt does have brace on right lower leg that is chronic. pt deals with chronic wound on leg and recently got off abx. Related Data Home Medications ?Medication ?Instructions ?Recorded ?Confirmed alprazolam 1 mg tablet 1 mg PO BIDP PRN Anxiety 15 days 10/12/17 05/05/24 amlodipine 10 mg tablet 10 mg PO DAILY htn 30 days 10/12/17 05/05/24 dutasteride 0.5 mg capsule 1 tab PO DAILY prostate 30 days 10/12/17 05/05/24 gabapentin 300 mg capsule 300 mg PO BID 30 days 10/12/17 05/05/24 labetalol 100 mg tablet 100 mg PO BID htn 30 days 10/12/17 05/05/24 lisinopril 40 mg tablet 40 mg PO DAILY htn 30 days 10/12/17 05/05/24 methadone 10 mg tablet 20 mg PO Q4H replacement therapy 10/12/17 05/05/24 30 days omeprazole 40 mg capsule,delayed 40 mg PO DAILY ppi 30 days 10/12/17 05/05/24 release tiotropium bromide 18 mcg capsule 1 cap inhalation DAILY COPD 30 days 10/12/17 05/05/24 with inhalation device albuterol sulfate 90 mcg/actuation 2 puffs IH Q4HP PRN Shortness Of 03/07/19 05/05/24 aerosol inhaler Breath Or Wheezing insulin NPH-regular 70-30 U-100 25 units SQ DAILY Diabetes 03/07/19 05/05/24 insulin 100 unit/mL subcutaneous pen insulin NPH-regular 70-30 U-100 40 unit SQ HS Diabetes 03/07/19 05/05/24 insulin 100 unit/mL subcutaneous pen nitrofurantoin 100 mg PO BID Infection 04/10/19 05/05/24 monohydrate/macrocrystals 100 mg capsule escitalopram oxalate 20 mg tablet 20 mg PO DAILY 05/05/24 05/05/24 Allergies Allergy/AdvReac Type Severity Reaction Status Date / Time butorphanol (From STADOL) Allergy Unknown UNKNOWN Verified 05/05/24 17:47 ketorolac (From TORADOL) Allergy Unknown UNKNOWN Verified 05/05/24 17:47 morphine (MORPHINE) AdvReac Unknown hiccups Verified 05/05/24 17:47 PFSH <Dionne Nieves APRN - Last Filed: 05/05/24 21:46> PFS Disclaimer: The information contained in this section may have been updated after the patient was seen, as this information can be updated by other users. Social History Smoking Status: Current every day smoker tobacco type: cigarettes packs per day: 2 second hand exposure: Yes alcohol intake: never substance use type: denies use current occupational status: disabled Travel in the last 8 weeks: None household members: spouse housing: house current occupational exposures/hazards: No caffeine: Yes Have you lived/traveled outside [place] in past 30 days?: No Contact w/someone who lives/traveled outside US past 30 days?: No Exposure to someone with infectious disease in past 14 days?: No Do you have a fever (greater than 100.4 F or 38 C)?: No Have you tested positive for COVID-19: No Exposed to someone with COVID-19 in past 14 days?: No Do you have a sore throat?: No Do you have a cough?: No Do you have any weakness?: No Are you experiencing any nausea/vomitting?: No Do you have any diarrhea?: No Are you experiencing any unusual bleeding?: No Do you have any muscle aches/pain?: No Do you have any abdominal pain?: No Are you experiencing loss of taste or smell?: No Other Medical History Have you received the Flu Vaccine for this season: Yes Have you received the Pneumonia Vaccine: Yes <Dionne Nieves APRN - Last Filed: 05/05/24 21:46> ROS Obtained: Yes Systems reviewed as appropriate & no additional complaints except as documented Physical Exam <Dionne Nieves APRN - Last Filed: 05/05/24 21:46> General General appearance: alert Head Head exam: atraumatic and normocephalic Eye Eye exam: Present normal appearance and PERRL; Absent nystagmus ENT ENT exam: Present normal exam Neck Neck exam: Present normal inspection Chest Chest inspection: Present normal inspection and symmetric chest wall rise; Absent tenderness Respiratory Respiratory exam: Present other (Bilateral decreased breath sounds, requiring oxygen) Cardiovascular Cardiovascular exam: Present regular rate Abdominal Exam Abdominal exam: Present soft and normal bowel sounds; Absent tenderness Extremities Exam Extremities exam: Present normal inspection and full ROM Back Exam Back exam: Present normal inspection and full ROM; Absent tenderness Neurological Exam Neurological exam: Present alert and oriented X3 Psychiatric Psychiatric exam: Present normal affect and normal mood Skin Skin exam: Present warm and dry HEART Score <Dionne Nieves APRN - Last Filed: 05/05/24 21:46> HEART Score HEART Score assessment performed?: Yes History (anamnesis): Moderately suspicious ECG: Non-specific disturbance Age: 45-65 years Risk factors: 3 or more risk factors Troponin: </= normal limit HEART Score: 5 <Andrea Ackerman MD - Last Filed: 05/06/24 07:21> HEART Score HEART Score: 5 Critical Care <Dionne Nieves APRN - Last Filed: 05/05/24 21:46> Critical Care Time Critical Care Time: No Medical Decision Making <Dionne Nieves APRN - Last Filed: 05/05/24 21:46> Sp Inquiry Pt receiving controlled substance: No Vital Signs Vital Signs: 05/05/24 13:40 05/05/24 13:44 05/05/24 13:49 Temperature 98.9 F Temperature Source Oral Pulse Rate 96 H 93 H Pulse Rate [Left Radial] 93 H Respiratory Rate 22 12 Blood Pressure 187/94 H 187/90 H Blood Pressure [Right Arm] 187/94 H Blood Pressure Mean Blood Pressure Mean [Right Arm] 125 Blood Pressure Source [Right Arm] 02 Sat by Pulse Oximetry 93 L 92 L 92 L Oxygen Delivery Method Nasal Cannula Nasal Cannula Nasal Cannula Oxygen Flow Rate (LPM) 5 05/05/24 14:01 05/05/24 15:00 05/05/24 15:31 Temperature Temperature Source Pulse Rate 90 91 H 89 Pulse Rate [Left Radial] Respiratory Rate 24 36 H 31 H Blood Pressure 189/89 H 193/82 H 187/84 H Blood Pressure [Right Arm] Blood Pressure Mean Blood Pressure Mean [Right Arm] Blood Pressure Source [Right Arm] 02 Sat by Pulse Oximetry 93 L 91 L 97 Oxygen Delivery Method Nasal Cannula Nasal Cannula Nasal Cannula Oxygen Flow Rate (LPM) 3 05/05/24 16:08 05/05/24 16:30 05/05/24 16:31 Temperature Temperature Source Pulse Rate 85 82 82 Pulse Rate [Left Radial] Respiratory Rate Blood Pressure 175/81 H 158/75 H Blood Pressure [Right Arm] Blood Pressure Mean Blood Pressure Mean [Right Arm] Blood Pressure Source [Right Arm] 02 Sat by Pulse Oximetry 95 95 91 L Oxygen Delivery Method Nasal Cannula Nasal Cannula Oxygen Flow Rate (LPM) 3 3 05/05/24 16:38 05/05/24 16:45 05/05/24 17:00 Temperature Temperature Source Pulse Rate 85 86 Pulse Rate [Left Radial] Respiratory Rate Blood Pressure Blood Pressure [Right Arm] Blood Pressure Mean Blood Pressure Mean [Right Arm] Blood Pressure Source [Right Arm] 02 Sat by Pulse Oximetry 89 L 91 L Oxygen Delivery Method Nasal Cannula Oxygen Flow Rate (LPM) 2 05/05/24 17:00 05/05/24 17:15 Temperature Temperature Source Pulse Rate Pulse Rate [Left Radial] 85 Respiratory Rate 22 Blood Pressure 171/83 H Blood Pressure [Right Arm] 171/83 H Blood Pressure Mean 100 Blood Pressure Mean [Right Arm] 112 Blood Pressure Source [Right Arm] Automatic Cuff 02 Sat by Pulse Oximetry 92 L Oxygen Delivery Method Non-Rebreather Oxygen Flow Rate (LPM) Lab Data Labs: Lab Results 05/05/24 13:43: HIV Ag/Ab Combo Qual Negative 05/05/24 13:44: WBC 15.2 H, RBC 5.47, Hgb 15.1, Hct 46.7, MCV 85.4, MCH 27.6, MCHC 32.3, RDW 14.3, Plt Count 240, MPV 9.8, Neut % (Auto) 90.7 H, Lymph % (Auto) 3.4 L, [place] % (Auto) 3.4, Eos % (Auto) 0.0 L, Baso % (Auto) 0.3, Neut # (Auto) 13.8 H, Lymph # (Auto) 0.5 L, [place] # (Auto) 0.5, Eos # (Auto) 0.0, Baso # (Auto) 0.1, Total Counted 100, Neutrophils % (Manual) 93 H, Band Neutrophils % 1.0, Lymphocytes % (Manual) 3 L, Monocytes % (Manual) 3, Platelet Estimate Normal, RBC Morphology Normal, Sodium 135 L, Potassium 4.0, Chloride 95 L, C arbon Dioxide 34 H, Anion Gap 10.0, BUN 12, Creatinine 0.50 L, Estimated Creat Clear 254, Estimated GFR 172, Est GFR ( Amer) 208, Glucose 209 H, Calcium 8.6, Magnesium 1.4 L, Total Bilirubin 0.3, AST 40, ALT 24, Alkaline Phosphatase 113, Troponin I 0.02, NT-Pro-B Natriuret Pep 1690 H, Total Protein 7.3, Albumin 3.9, Globulin 3.4 H, Albumin/Globulin Ratio 1.1, HCV Ab VINH w/Rflx PCR Qn Negative 05/05/24 13:48: SARS-CoV-2 (PCR) Not detected, Influenza A Untype (PCR) Detected A, Influenza Type B (PCR) Not detected 05/05/24 13:53: VBG pH 7.36, VBG pCO2 56.0 H, VBG pO2 36.7, VBG HCO3 30.6 H, VBG Total CO2 32.3 H, VBG O2 Saturation 73.2 H, VBG Base Excess 5.0 H, VBG Lactic Acid 1.4 05/05/24 13:58: Chlamy pneumoniae PCR Not detected, Adenovirus (PCR) Not detected, B. pertussis DNA (PCR) Not detected, Coronavirus OC43 (PCR) Not detected, Coronavirus HKU1 (PCR) Not detected, Coronavirus 229E (PCR) Not detected, SARS-CoV-2 (PCR) Not detected, Coronavirus NL63 (PCR) Not detected, Human Metapneumovir PCR Not detected, Influenza A (H1) PCR Not detected, Influ A (H1N1/09) PCR Detected A, Influenza A (H3) PCR Not detected, Influenza Type A (PCR) Not detected, Influenza Type B (PCR) Not detected, M. pneumoniae (PCR) Not detected, Parainfluenza 1 (PCR) Not detected, Parainfluenza 2 (PCR) Not detected, Parainfluenza 3 (PCR) Not detected, Parainfluenza 4 (PCR) Not detected, RSV (PCR) Not detected, Entero/Rhino (PCR) Not detected 05/06/24 05:37 05/06/24 05:37 Response Orders (Tests/Meds): ED MEDICATIONS Generic Name Dose Route Start Last Admin Trade Name Freq PRN Reason Stop Dose Admin Acetaminophen 650 mg 05/05/24 18:46 05/05/24 20:04 Acetaminophen 325mg Tab PO 06/04/24 18:45 650 mg Q4HP PRN Administration Fever or Mild Pain (1-3) Albuterol/Ipratropium 3 ml 05/05/24 18:50 05/06/24 05:31 Ipratropium/Albuterol 3 Ml [facility] 06/04/24 18:49 3 ml Q6RT [facility] Administration Albuterol/Ipratropium 3 ml 05/05/24 19:46 Ipratropium/Albuterol 3 Ml [facility] 06/04/24 19:45 Q4HP PRN Shortness Of Breath Or Wheezing Amlodipine Besylate 10 mg 05/06/24 09:00 Amlodipine 10mg Tablet PO 06/05/24 08:59 DAILY [facility] Budesonide 0.5 mg 05/05/24 18:55 05/06/24 05:31 Budesonide 0.5mg/2ml [facility] 06/04/24 18:54 0.5 mg BIDRT JUNE Administration Citalopram Hydrobromide 40 mg 05/06/24 09:00 Citalopram 40mg Tablet PO 06/05/24 08:59 DAILY [facility] Furosemide 40 mg 05/05/24 22:44 05/05/24 22:46 Furosemide 40mg/4ml Vial IV 05/05/24 22:45 40 mg ONCE ONE Administration Hydralazine HCl 10 mg 05/05/24 21:05 05/06/24 04:10 Hydralazine 20mg/Ml Vial IV 06/04/24 21:04 10 mg Q4HP PRN Administration Blood Pressure - High Levofloxacin/Dextrose 750 mg in 150 mls @ 100 mls/hr 05/06/24 00:15 05/06/24 00:17 Levofloxacin 750mg/150ml Premix IV 05/16/24 00:14 100 mls/hr Q24H JUNE Administration Piperacillin Sod/Tazobactam 50 mls @ 100 mls/hr 05/06/24 00:15 05/06/24 06:39 Sod 3.375 gm/ Sodium Chloride IV 05/16/24 00:14 100 mls/hr Q6H JUNE Administration Insulin Human Lispro 0 unit 05/06/24 06:00 05/06/24 06:37 Humalog 100 Units/Ml 10ml Vial (Ssi) SUBCUT 06/05/24 05:59 4 unit ACHS JUNE Administration Protocol Iopamidol 80 ml 05/05/24 21:58 05/05/24 21:59 Iopamidol-370 (76%);100ml Bottle IV 05/05/24 21:59 80 ml ONCE ONE Administration Labetalol HCl 100 mg 05/05/24 21:00 05/05/24 22:46 Labetalol 100mg Tablet PO 06/04/24 20:59 Not Given BID JUNE Lorazepam 0.5 mg 05/05/24 19:50 05/05/24 19:57 Lorazepam 2mg/Ml Vial IV 05/05/24 19:51 0.5 mg ONCE ONE Administration Methylprednisolone Sodium Succinate 125 mg 05/05/24 21:20 05/05/24 21:31 Methylprednisolone Sod Succ 125mg Vial IV 05/05/24 21:21 125 mg ONCE ONE Administration Naloxone HCl 0.4 mg 05/05/24 20:23 Naloxone 0.4mg/Ml Vial IV 06/04/24 20:22 Q3MINP PRN Decreased Respirations Nicotine 21 mg 05/06/24 09:00 05/05/24 21:17 Nicotine 21mg/24hr Patch TD 06/05/24 08:59 21 mg DAILY JUNE Administration Non-Formulary Medication 1 tab 05/06/24 09:00 Dutasteride PO 06/05/24 08:59 DAILY JUNE Non-Formulary Medication 40 mg 05/06/24 09:00 Lisinopril PO 06/05/24 08:59 DAILY JUNE Oseltamivir Phosphate 75 mg 05/05/24 21:00 05/05/24 21:31 Oseltamivir 75mg Capsule PO 05/10/24 09:01 Not Given BID JUNE Sodium Chloride 10 ml 05/05/24 19:50 Sodium Chloride 0.9% 10ml Vial IV 06/04/24 19:49 NEEDED PRN to Dilute Lorazepam inj Sodium Chloride 50 ml 05/05/24 21:58 05/05/24 21:59 0.9 % Sodium Chloride 50 Ml Vial IV 05/05/24 21:59 50 ml ONCE ONE Administration Sodium Chloride 3 ml 05/05/24 23:57 05/06/24 01:45 Sodium Chloride 3% 15ml [facility] 06/04/24 23:56 3 ml ONCE PRN Administration [employer] Tiotropium Wilbur 1 cap 05/06/24 09:00 Tiotropium 18mcg/Puff Inhaler 06/05/24 08:59 DAILY JUNE Discontinued Medications Generic Name Dose Route Start Last Admin Trade Name Freq PRN Reason Stop Dose Admin Albuterol/Ipratropium 3 ml 05/05/24 14:21 05/05/24 14:30 Ipratropium/Albuterol 3 Ml [facility] 05/05/24 14:22 3 ml ONCE ONE Administration Albuterol/Ipratropium 3 ml 05/05/24 15:13 05/05/24 15:25 Ipratropium/Albuterol 3 Ml [facility] 05/05/24 15:14 3 ml ONCE ONE Administration Magnesium Sulfate 2 gm in 50 mls @ 50 mls/hr 05/05/24 14:22 05/05/24 14:30 Magnesium Sulfate 2gm/50ml Premix IV 05/05/24 15:21 50 mls/hr ONCE ONE Administration Ceftriaxone Sodium 1 gm/ 50 mls @ 100 mls/hr 05/05/24 15:15 05/05/24 15:24 Sodium Chloride IV 05/15/24 15:14 100 mls/hr Q24H JUNE Administration Azithromycin 500 mg/ Sodium 250 mls @ 250 mls/hr 05/05/24 15:15 05/05/24 15:54 Chloride IV 05/15/24 15:14 250 mls/hr Q24H JUNE Administration Magnesium Sulfate 2 gm in 50 mls @ 25 mls/hr 05/05/24 20:00 05/05/24 21:21 Magnesium Sulfate 2gm/50ml Premix IV 05/05/24 23:59 Not Given Q2H JUNE Magnesium Sulfate 2 gm in 50 mls @ 50 mls/hr 05/05/24 20:15 05/05/24 21:52 Magnesium Sulfate 2gm/50ml Premix IV 05/05/24 23:14 Not Given Q1H JUNE Sodium Chloride 10 ml 05/05/24 21:58 05/05/24 21:59 Sodium Chloride 0.9% 10ml Syr (Rad Only) IV 05/05/24 21:59 10 ml ONCE ONE Administration ORDERS Category Date Time Status CXR --portable [XR chest portable] Stat Exams 05/05/24 13:47 Completed BNP [NT Pro Brain Natriuretic Pep.] Stat Lab 05/05/24 13:44 Completed CBC w/Auto Diff [Complete Blood Count Auto Diff] Stat Lab 05/05/24 13:44 Completed CMP [Comprehensive Metabolic Panel] Stat Lab 05/05/24 13:44 Completed HIV Combo Stat Lab 05/05/24 13:43 Completed Hepatitis C Ab Qual. W/ RFX Stat Lab 05/05/24 13:44 Completed MRSA DNA PCR Routine Lab 05/05/24 17:44 Received Magnesium Stat Lab 05/05/24 13:44 Completed Rapid PCR Covid and Flu A/B Stat Lab 05/05/24 13:48 Completed Trop I [Troponin I] Stat Lab 05/05/24 13:44 Completed Troponin I Q3H Lab 05/05/24 18:05 Completed Troponin I Q3H Lab 05/05/24 19:55 Completed UA [Urinalysis and Microscopic] Stat Lab 05/05/24 16:06 Ordered Blood Culture Stat Micro 05/05/24 13:53 Received VBG [Venous Blood Gas] Stat RT 05/05/24 13:53 Completed MDM Narrative Medical Decision Narrative: In summary, patient is a 58-year-old male PMHx CVA, anxiety, hyperlipidemia, hypertension, tobacco use, diabetes, history of seizures, obesity, right bundle branch block, COPD who presents to the emergency department for evaluation of [complaint]. Patient is [hemodynamically stable/unstable] upon arrival, [febrile/afebrile]. [Unremarkable physical exam, nonfocal exam versus focal remarkable exam]. Differential diagnosis includes ACS, pneumonia, dissection, pulmonary embolism, pneumothorax, infectious process, electrolyte abnormality, COPD exacerbation Initial workup reviewed. CBC remarkable for leukocytosis, WBC 15.2 with neutrophils 90.7, stable H&H. VBG remarkable for pCO2 56, HCO3 30.6. CMP remarkable for sodium of 135, CO2 34, creatinine 0.50, BUN 12. Glucose 209. Magnesium 1.4 (IV replacement administered). BNP 1690. First troponin 0.02. Chest x-ray final read remarkable for streaky bilateral lower lobe opacities concerning for pneumonia. Will treat with Rocephin and azithromycin. Initial inventions include DuoNebs & oxygen NC at 5L initially. Was able to wean down to 2 L nasal cannula to maintain sat of 92%. Upon repeat evaluation, patient states that he feels his condition has improved after DuoNebs. Given this, and continuous oxygen requirement with new diagnosis of bilateral pneumonia I discussed with patient that I feel it is best to use admitted to the hospital. Shared decision making used with patient, he is agreeable to plan of care at this time. Considered chest CT utility however decided to defer at this time due to diagnosis of pneumonia and possible COPD exacerbation. Patient admitted to hospital medicine for influenza A, bilateral pneumonia & new oxygen requirement. Also noted to have hypomagnesemia. <Andrea Ackerman MD - Last Filed: 05/06/24 07:21> Vital Signs Vital Signs: 05/05/24 13:40 05/05/24 13:44 05/05/24 13:49 Temperature 98.9 F Temperature Source Oral Pulse Rate 96 H 93 H Pulse Rate [Left Radial] 93 H Respiratory Rate 22 12 Blood Pressure 187/94 H 187/90 H Blood Pressure [Right Arm] 187/94 H Blood Pressure Mean Blood Pressure Mean [Right Arm] 125 Blood Pressure Source [Right Arm] 02 Sat by Pulse Oximetry 93 L 92 L 92 L Oxygen Delivery Method Nasal Cannula Nasal Cannula Nasal Cannula Oxygen Flow Rate (LPM) 5 05/05/24 14:01 05/05/24 15:00 05/05/24 15:31 Temperature Temperature Source Pulse Rate 90 91 H 89 Pulse Rate [Left Radial] Respiratory Rate 24 36 H 31 H Blood Pressure 189/89 H 193/82 H 187/84 H Blood Pressure [Right Arm] Blood Pressure Mean Blood Pressure Mean [Right Arm] Blood Pressure Source [Right Arm] 02 Sat by Pulse Oximetry 93 L 91 L 97 Oxygen Delivery Method Nasal Cannula Nasal Cannula Nasal Cannula Oxygen Flow Rate (LPM) 3 05/05/24 16:08 05/05/24 16:30 05/05/24 16:31 Temperature Temperature Source Pulse Rate 85 82 82 Pulse Rate [Left Radial] Respiratory Rate Blood Pressure 175/81 H 158/75 H Blood Pressure [Right Arm] Blood Pressure Mean Blood Pressure Mean [Right Arm] Blood Pressure Source [Right Arm] 02 Sat by Pulse Oximetry 95 95 91 L Oxygen Delivery Method Nasal Cannula Nasal Cannula Oxygen Flow Rate (LPM) 3 3 05/05/24 16:38 05/05/24 16:45 05/05/24 17:00 Temperature Temperature Source Pulse Rate 85 86 Pulse Rate [Left Radial] Respiratory Rate Blood Pressure Blood Pressure [Right Arm] Blood Pressure Mean Blood Pressure Mean [Right Arm] Blood Pressure Source [Right Arm] 02 Sat by Pulse Oximetry 89 L 91 L Oxygen Delivery Method Nasal Cannula Oxygen Flow Rate (LPM) 2 05/05/24 17:00 05/05/24 17:15 Temperature Temperature Source Pulse Rate Pulse Rate [Left Radial] 85 Respiratory Rate 22 Blood Pressure 171/83 H Blood Pressure [Right Arm] 171/83 H Blood Pressure Mean 100 Blood Pressure Mean [Right Arm] 112 Blood Pressure Source [Right Arm] Automatic Cuff 02 Sat by Pulse Oximetry 92 L Oxygen Delivery Method Non-Rebreather Oxygen Flow Rate (LPM) Lab Data Labs: Lab Results 05/05/24 13:43: HIV Ag/Ab Combo Qual Negative 05/05/24 13:44: WBC 15.2 H, RBC 5.47, Hgb 15.1, Hct 46.7, MCV 85.4, MCH 27.6, MCHC 32.3, RDW 14.3, Plt Count 240, MPV 9.8, Neut % (Auto) 90.7 H, Lymph % (Auto) 3.4 L, [place] % (Auto) 3.4, Eos % (Auto) 0.0 L, Baso % (Auto) 0.3, Neut # (Auto) 13.8 H, Lymph # (Auto) 0.5 L, [place] # (Auto) 0.5, Eos # (Auto) 0.0, Baso # (Auto) 0.1, Total Counted 100, Neutrophils % (Manual) 93 H, Band Neutrophils % 1.0, Lymphocytes % (Manual) 3 L, Monocytes % (Manual) 3, Platelet Estimate Normal, RBC Morphology Normal, Sodium 135 L, Potassium 4.0, Chloride 95 L, C arbon Dioxide 34 H, Anion Gap 10.0, BUN 12, Creatinine 0.50 L, Estimated Creat Clear 254, Estimated GFR 172, Est GFR ( Amer) 208, Glucose 209 H, Calcium 8.6, Magnesium 1.4 L, Total Bilirubin 0.3, AST 40, ALT 24, Alkaline Phosphatase 113, Troponin I 0.02, NT-Pro-B Natriuret Pep 1690 H, Total Protein 7.3, Albumin 3.9, Globulin 3.4 H, Albumin/Globulin Ratio 1.1, HCV Ab VINH w/Rflx PCR Qn Negative 05/05/24 13:48: SARS-CoV-2 (PCR) Not detected, Influenza A Untype (PCR) Detected A, Influenza Type B (PCR) Not detected 05/05/24 13:53: VBG pH 7.36, VBG pCO2 56.0 H, VBG pO2 36.7, VBG HCO3 30.6 H, VBG Total CO2 32.3 H, VBG O2 Saturation 73.2 H, VBG Base Excess 5.0 H, VBG Lactic Acid 1.4 05/05/24 13:58: Chlamy pneumoniae PCR Not detected, Adenovirus (PCR) Not detected, B. pertussis DNA (PCR) Not detected, Coronavirus OC43 (PCR) Not detected, Coronavirus HKU1 (PCR) Not detected, Coronavirus 229E (PCR) Not detected, SARS-CoV-2 (PCR) Not detected, Coronavirus NL63 (PCR) Not detected, Human Metapneumovir PCR Not detected, Influenza A (H1) PCR Not detected, Influ A (H1N1/09) PCR Detected A, Influenza A (H3) PCR Not detected, Influenza Type A (PCR) Not detected, Influenza Type B (PCR) Not detected, M. pneumoniae (PCR) Not detected, Parainfluenza 1 (PCR) Not detected, Parainfluenza 2 (PCR) Not detected, Parainfluenza 3 (PCR) Not detected, Parainfluenza 4 (PCR) Not detected, RSV (PCR) Not detected, Entero/Rhino (PCR) Not detected Response Orders (Tests/Meds): ED MEDICATIONS Generic Name Dose Route Start Last Admin Trade Name Freq PRN Reason Stop Dose Admin Acetaminophen 650 mg 05/05/24 18:46 05/05/24 20:04 Acetaminophen 325mg Tab PO 06/04/24 18:45 650 mg Q4HP PRN Administration Fever or Mild Pain (1-3) Albuterol/Ipratropium 3 ml 05/05/24 18:50 05/06/24 05:31 Ipratropium/Albuterol 3 Ml [facility] 06/04/24 18:49 3 ml Q6RT JUNE Administration Albuterol/Ipratropium 3 ml 05/05/24 19:46 Ipratropium/Albuterol 3 Ml [facility] 06/04/24 19:45 Q4HP PRN Shortness Of Breath Or Wheezing Amlodipine Besylate 10 mg 05/06/24 09:00 Amlodipine 10mg Tablet PO 06/05/24 08:59 DAILY [facility] Budesonide 0.5 mg 05/05/24 18:55 05/06/24 05:31 Budesonide 0.5mg/2ml [facility] 06/04/24 18:54 0.5 mg BIDRT JUNE Administration Citalopram Hydrobromide 40 mg 05/06/24 09:00 Citalopram 40mg Tablet PO 06/05/24 08:59 DAILY [facility] Furosemide 40 mg 05/05/24 22:44 05/05/24 22:46 Furosemide 40mg/4ml Vial IV 05/05/24 22:45 40 mg ONCE ONE Administration Hydralazine HCl 10 mg 05/05/24 21:05 05/06/24 04:10 Hydralazine 20mg/Ml Vial IV 06/04/24 21:04 10 mg Q4HP PRN Administration Blood Pressure - High Levofloxacin/Dextrose 750 mg in 150 mls @ 100 mls/hr 05/06/24 00:15 05/06/24 00:17 Levofloxacin 750mg/150ml Premix IV 05/16/24 00:14 100 mls/hr Q24H JUNE Administration Piperacillin Sod/Tazobactam 50 mls @ 100 mls/hr 05/06/24 00:15 05/06/24 06:39 Sod 3.375 gm/ Sodium Chloride IV 05/16/24 00:14 100 mls/hr Q6H JUNE Administration Insulin Human Lispro 0 unit 05/06/24 06:00 05/06/24 06:37 Humalog 100 Units/Ml 10ml Vial (Ssi) SUBCUT 06/05/24 05:59 4 unit ACHS JUNE Administration Protocol Iopamidol 80 ml 05/05/24 21:58 05/05/24 21:59 Iopamidol-370 (76%);100ml Bottle IV 05/05/24 21:59 80 ml ONCE ONE Administration Labetalol HCl 100 mg 05/05/24 21:00 05/05/24 22:46 Labetalol 100mg Tablet PO 06/04/24 20:59 Not Given BID JUNE Lorazepam 0.5 mg 05/05/24 19:50 05/05/24 19:57 Lorazepam 2mg/Ml Vial IV 05/05/24 19:51 0.5 mg ONCE ONE Administration Methylprednisolone Sodium Succinate 125 mg 05/05/24 21:20 05/05/24 21:31 Methylprednisolone Sod Succ 125mg Vial IV 05/05/24 21:21 125 mg ONCE ONE Administration Naloxone HCl 0.4 mg 05/05/24 20:23 Naloxone 0.4mg/Ml Vial IV 06/04/24 20:22 Q3MINP PRN Decreased Respirations Nicotine 21 mg 05/06/24 09:00 05/05/24 21:17 Nicotine 21mg/24hr Patch TD 06/05/24 08:59 21 mg DAILY JUNE Administration Non-Formulary Medication 1 tab 05/06/24 09:00 Dutasteride PO 06/05/24 08:59 DAILY JUNE Non-Formulary Medication 40 mg 05/06/24 09:00 Lisinopril PO 06/05/24 08:59 DAILY JUNE Oseltamivir Phosphate 75 mg 05/05/24 21:00 05/05/24 21:31 Oseltamivir 75mg Capsule PO 05/10/24 09:01 Not Given BID JUNE Sodium Chloride 10 ml 05/05/24 19:50 Sodium Chloride 0.9% 10ml Vial IV 06/04/24 19:49 NEEDED PRN to Dilute Lorazepam inj Sodium Chloride 50 ml 05/05/24 21:58 05/05/24 21:59 0.9 % Sodium Chloride 50 Ml Vial IV 05/05/24 21:59 50 ml ONCE ONE Administration Sodium Chloride 3 ml 05/05/24 23:57 05/06/24 01:45 Sodium Chloride 3% 15ml Neb IH 06/04/24 23:56 3 ml ONCE PRN Administration INDUCE SPUTUM COLLECTION Tiotropium Wilbur 1 cap 05/06/24 09:00 Tiotropium 18mcg/Puff Inhaler 06/05/24 08:59 DAILY JUNE Discontinued Medications Generic Name Dose Route Start Last Admin Trade Name Albin PRN Reason Stop Dose Admin Albuterol/Ipratropium 3 ml 05/05/24 14:21 05/05/24 14:30 Ipratropium/Albuterol 3 Ml [facility] 05/05/24 14:22 3 ml ONCE ONE Administration Albuterol/Ipratropium 3 ml 05/05/24 15:13 05/05/24 15:25 Ipratropium/Albuterol 3 Ml [facility] 05/05/24 15:14 3 ml ONCE ONE Administration Magnesium Sulfate 2 gm in 50 mls @ 50 mls/hr 05/05/24 14:22 05/05/24 14:30 Magnesium Sulfate 2gm/50ml Premix IV 05/05/24 15:21 50 mls/hr ONCE ONE Administration Ceftriaxone Sodium 1 gm/ 50 mls @ 100 mls/hr 05/05/24 15:15 05/05/24 15:24 Sodium Chloride IV 05/15/24 15:14 100 mls/hr Q24H JUNE Administration Azithromycin 500 mg/ Sodium 250 mls @ 250 mls/hr 05/05/24 15:15 05/05/24 15:54 Chloride IV 05/15/24 15:14 250 mls/hr Q24H JUNE Administration Magnesium Sulfate 2 gm in 50 mls @ 25 mls/hr 05/05/24 20:00 05/05/24 21:21 Magnesium Sulfate 2gm/50ml Premix IV 05/05/24 23:59 Not Given Q2H JUNE Magnesium Sulfate 2 gm in 50 mls @ 50 mls/hr 05/05/24 20:15 05/05/24 21:52 Magnesium Sulfate 2gm/50ml Premix IV 05/05/24 23:14 Not Given Q1H JUNE Sodium Chloride 10 ml 05/05/24 21:58 05/05/24 21:59 Sodium Chloride 0.9% 10ml Syr (Rad Only) IV 05/05/24 21:59 10 ml ONCE ONE Administration ORDERS Category Date Time Status CXR --portable [XR chest portable] Stat Exams 05/05/24 13:47 Completed BNP [NT Pro Brain Natriuretic Pep.] Stat Lab 05/05/24 13:44 Completed CBC w/Auto Diff [Complete Blood Count Auto Diff] Stat Lab 05/05/24 13:44 Completed CMP [Comprehensive Metabolic Panel] Stat Lab 05/05/24 13:44 Completed HIV Combo Stat Lab 05/05/24 13:43 Completed Hepatitis C Ab Qual. W/ RFX Stat Lab 05/05/24 13:44 Completed MRSA DNA PCR Routine Lab 05/05/24 17:44 Received Magnesium Stat Lab 05/05/24 13:44 Completed Rapid PCR Covid and Flu A/B Stat Lab 05/05/24 13:48 Completed Trop I [Troponin I] Stat Lab 05/05/24 13:44 Completed Troponin I Q3H Lab 05/05/24 18:05 Completed Troponin I Q3H Lab 05/05/24 19:55 Completed UA [Urinalysis and Microscopic] Stat Lab 05/05/24 16:06 Ordered Blood Culture Stat Micro 05/05/24 13:53 Received VBG [Venous Blood Gas] Stat RT 05/05/24 13:53 Completed ECG Data Tracing #1: Attestation: I reviewed this ECG and interpreted as documented below: (Sinus rhythm 95 bpm with DE interval 157, QRS 164, QTc 458. Right bundle branch block morphology. Normal axis) MDM Narrative Medical Decision Narrative: In summary, patient is a 58-year-old male PMHx CVA, anxiety, hyperlipidemia, hypertension, tobacco use, diabetes, history of seizures, obesity, right bundle branch block, COPD who presents to the emergency department for evaluation of chest pain and shortness of breath, cough. Patient is hemodynamically stable upon arrival, afebrile. Physical exam significant for mild increased work of breathing, decreased breath sounds with O2 requirement. Speaking in full sentences Differential diagnosis includes ACS, pneumonia, dissection, pulmonary embolism, pneumothorax, infectious process, electrolyte abnormality, COPD exacerbation Initial workup reviewed. CBC remarkable for leukocytosis, WBC 15.2 with neutrophils 90.7, stable H&H. VBG remarkable for pCO2 56, HCO3 30.6. CMP remarkable for sodium of 135, CO2 34, creatinine 0.50, BUN 12. Glucose 209. Magnesium 1.4 (IV replacement administered). BNP 1690. First troponin 0.02. Chest x-ray final read remarkable for streaky bilateral lower lobe opacities concerning for pneumonia. Will treat with Rocephin and azithromycin. Initial inventions include DuoNebs & oxygen NC at 5L initially. Was able to wean down to 2 L nasal cannula to maintain sat of 92%. Upon repeat evaluation, patient states that he feels his condition has improved after DuoNebs. Given this, and continuous oxygen requirement with new diagnosis of bilateral pneumonia I discussed with patient that I feel it is best to use admitted to the hospital. Shared decision making used with patient, he is agreeable to plan of care at this time. Considered chest CT utility however decided to defer at this time due to diagnosis of pneumonia and possible COPD exacerbation. Patient admitted to hospital medicine for influenza A, bilateral pneumonia & new oxygen requirement. Also noted to have hypomagnesemia. I was consulted by the EMMANUEL, and we discussed the complexity of the problems being addressed. I approved the treatment and management plan for this patient's care in the Emergency Department, thus performing a substantive portion of the medical decision making. Andrea Ackerman MD
--- NOTE | 2024-05-05 15:23 | PC.NURSE ---
nursing has made multiple attempts to look at pts leg. he states he sees wound care and refuses evaluation for that in ED. FIELD TRAINER notified and he refused to let her look as well
[2024-05-05] MEDS: CEFTRIAXONE 1 GM 1 GM in 0.9 % SODIUM CHLORIDE 50 ML IV (15:24)
--- NOTE | 2024-05-05 15:40 | PC.NURSE ---
HS unavailable to get bed at this time.
[2024-05-05] MEDS: AZITHROMYCIN 500 MG in 0.9 % SODIUM CHLORIDE 250 ML 250 MG IV (15:54)
--- NOTE | 2024-05-05 15:55 | PC.NURSE ---
pt attempting to use the urinal. no new complaints. call camp in reach.
--- NOTE | 2024-05-05 16:10 | PC.NURSE ---
I rounded on the pt. He is very congested and having trouble breathing through his nose. I switched him over to a simple oxygen mask. no needs voiced. call camp in reach.
--- NOTE | 2024-05-05 16:15 | PC.NURSE ---
lab rejected urine specimen due to it spilling in the tube
[2024-05-05 16:18] LABS: HIV Combo NEGATIVE (Negative)
[2024-05-05 16:26] LABS: Hepatitis C Ab Qual. W/ RFX NEGATIVE (Negative)
--- NOTE | 2024-05-05 16:50 | PC.NURSE ---
report called to rubio on second floor
[2024-05-05 18:40] LABS: Troponin I 0.02 ng/ml (0.00-0.034)
[2024-05-05] MEDS: BUDESONIDE 0.5MG/2ML NEB 0.5 MG IH (19:45)
[2024-05-05] MEDS: LORazepam 2MG/ML VIAL 0.5 MG IV (19:57)
[2024-05-05 19:59] LABS: Lactate Venous 0.7 mmol/L (0.4-2.0); VBG Oxygen Saturation 95.8 % (50-70); VBG PCO2 45.6 mmol/L (35-51); VBG PH 7.39 mmol/L (7.31-7.41); VBG PO2 76.5 mmol/L (28-40); VBG Total CO2 28.4 mmol/L (23-27)
[2024-05-05] MEDS: ACETAMINOPHEN 325MG TAB 650 MG PO (20:04)
[2024-05-05 20:22] LABS: Troponin I 0.02 ng/ml (0.00-0.034)
[2024-05-05 20:26] LABS: POC Glucose,Bedside 149 (70-110)
[2024-05-05 20:51] LABS: D-Dimer 0.62 ug/mL (0.0-0.5)
[2024-05-05] MEDS: NICOTINE 21MG/24HR PATCH 21 MG TD (21:17)
--- NOTE | 2024-05-05 21:19 | CT_ITS ---
PROCEDURE INFORMATION: Exam: CTA Chest With Contrast Exam date and time: 05/05/2024 9:46 PM Age: 58 years old Clinical indication: Shortness of breath; Additional info: Increased work of breathing, elevated d-dimer. TECHNIQUE: Imaging protocol: Computed tomographic angiography of the chest with contrast. Exam focused on the arteries. 3D rendering (Not supervised by radiologist): MIP and/or 3D reconstructed images were created by the technologist. Radiation optimization: All CT scans at this facility use at least one of these dose optimization techniques: automated exposure control; mA and/or kV adjustment per patient size (includes targeted exams where dose is matched to clinical indication); or iterative reconstruction. Contrast material: ISOVUE; Contrast volume: 80 ml; Contrast route: INTRAVENOUS (IV); COMPARISON: 1. CT ANGIO CHEST 03/07/2019 2:44 AM 2. CR XR CHEST PORTABLE 05/05/2024 1:50 PM FINDINGS: Pulmonary arteries: Evaluation of the segmental pulmonary artery branches is limited by excessive motion artifact and less than optimal contrast opacification and cannot be evaluated for subtle acute emboli. Central pulmonary arteries are free of emboli. Aorta: Unremarkable. No aortic aneurysm. No aortic dissection. Lungs: [id number] area of consolidation noted in the right lower lobe with associated mild volume loss compatible with pneumonia and atelectasis. Mild atelectasis posterior left lower lobe. Lung ness otherwise clear. Pleural spaces: Unremarkable. No pneumothorax. No pleural effusion. Heart: Unremarkable. No cardiomegaly. No pericardial effusion. Esophagus: Esophageal wall thickening similar to previous suggesting esophagitis. Lymph nodes: Mildly enlarged lower right paratracheal and subcarinal nodes similar to prior CT of 03/07/2019. Adrenal glands: Stable 2.4 cm left adrenal nodule compatible with adenoma. Bones/joints: Unremarkable. No acute fracture. Soft tissues: Unremarkable. IMPRESSION: 1. Evaluation of the segmental pulmonary artery branches is limited by excessive motion artifact and less than optimal contrast opacification and cannot be evaluated for subtle acute emboli. Central pulmonary arteries are free of emboli. 2. [id number]-[id number]-[id number] area of consolidation of the right lower lobe suggesting pneumonia including the possibility of aspiration pneumonia. Associated mild volume loss. Advise follow-up until resolution. 3. Additional nonemergent findings as above.
[2024-05-05 21:20] LABS: Amphetamine/Metha Screen,Urine Negative ng/ml (<1000); Barbiturates Screen,Urine Negative ng/ml (<200); Benzodiazepines Screen,Urine Positive ng/ml (<200); Cannabinoid Screen,Urine Positive ng/ml (<50); Cocaine Screen,Urine Negative ng/ml (<300); Methadone Screen,Urine Positive ng/ml (<300); Opiate Screen,Urine Negative ng/ml (<300); Phencyclidine Screen,Urine Negative ng/ml (<25)
--- NOTE | 2024-05-05 21:29 | PC.NURSE ---
patient arrived to ICU unit from [facility] @21:00
[2024-05-05] MEDS: METHYLPREDNISOLONE SOD SUCC 125MG VIAL 125 MG IV (21:31)
[2024-05-05 21:46] LABS: Ammonia 21 umol/L (9-30)
[2024-05-05] MEDS: 0.9 % SODIUM CHLORIDE 50 ML VIAL IV (21:59)
[2024-05-05] MEDS: SODIUM CHLORIDE 0.9% 10ML SYR (RAD ONLY) 10 ML IV (21:59)
[2024-05-05] MEDS: IOPAMIDOL-370 (76%);100ML BOTTLE 80 ML IV (21:59)
[2024-05-05] MEDS: HYDRALAZINE 20MG/ML VIAL 10 MG IV (22:32)
[2024-05-05 22:36] LABS: POC Glucose,Bedside 151 (70-110)
[2024-05-05] MEDS: FUROSEMIDE 40MG/4ML VIAL 40 MG IV (22:46)
[2024-05-05 23:44] LABS: Mycoplasma Pneumo IGM (Rapid) Reactive (Non-Reactiv)
[2024-05-06] VITALS (29 sets, daily range): BP systolic 138–168; BP diastolic 67–86; PULSE 72–100; RESP 11–45; TEMP 36.6–37.4; O2SAT 91–96; BMI 33.6
[2024-05-06] MEDS: PIPERCILLIN/TAZO 3.375 GM in 0.9 % SODIUM CHLORIDE 50 ML IV ×2 (00:16→06:39)
[2024-05-06 00:17] LABS: Adenovirus,PCR Not Detected (NotDetected); Bordetella Pertussis Not Detected (NotDetected); Chlamydophila Pneumoniae, PCR Not Detected (NotDetected); Coronavirus 19, PCR Not Detected (NotDetected); Coronavirus 229E Not Detected (NotDetected); Coronavirus NL63 Not Detected (NotDetected); Coronavirus OC43 Not Detected (NotDetected); Coronovirus HKU1,PCR Not Detected (NotDetected); Human Metapneumovirus Not Detected (NotDetected); Influenza A, PCR Not Detected (NotDetected); Influenza AH1, PCR Not Detected (NotDetected); Influenza AH3,PCR Not Detected (NotDetected); Influenza B, PCR Not Detected (NotDetected); Mycoplasma Pneumoniae, PCR Not Detected (NotDetected); Parainfluenza 1, PCR Not Detected (NotDetected); Parainfluenza 2, PCR Not Detected (NotDetected); Parainfluenza 3, PCR Not Detected (NotDetected); Parainfluenza 4, PCR Not Detected (NotDetected); Respiratory Syncytial Virus Not Detected (NotDetected); Rhinovirus/Enterovirus Not Detected (NotDetected)
[2024-05-06] MEDS: LEVOFLOXACIN/D5W 750 MG/150 ML 750 MG/150 ML PIGGYBACK 100 MG IV (00:17)
--- NOTE | 2024-05-06 00:44 | PC.WOUNDNOTE ---
full right leg
--- NOTE | 2024-05-06 00:44 | PC.WOUNDNOTE ---
right posterior knee
[2024-05-06 00:52] LABS: Lactate Venous 0.8 mmol/L (0.4-2.0); VBG Base Excess 5.1 mmol/L (-2.4-2.3); VBG HCO3 30.3 mmol/L (23-30); VBG PCO2 52.2 mmol/L (35-51); VBG PH 7.38 mmol/L (7.31-7.41); VBG PO2 74.7 mmol/L (28-40); VBG Total CO2 31.9 mmol/L (23-27)
--- NOTE | 2024-05-06 01:30 | P.HP_ITS ---
<Statement entered by Catarino Ortiz MD - 05/07/24 12:46> I personally evaluated patient and agree with plan of care outlined by the PLANT INSPECTOR. History of Present Illness *Admission Date: 05/05/24 *Reason for visit:: Respiratory symptoms *History of present illness: The patient is a 58-year-old male with a past medical history significant for cerebrovascular accident, anxiety, hyperlipidemia, chronic pain, hypertension, tobacco use, diabetes mellitus, seizures, obesity, right bundle branch block, and COPD. He presented to the emergency department with worsening respiratory symptoms. On arrival, he was hemodynamically stable, afebrile, and his initial physical exam showed increased work of breathing but no focal neurologic deficits. Laboratory results revealed leukocytosis (WBC 15.2 with 90.7% neutrophils), hypercapnia on VBG (pCO? 56, HCO? 30.6), and hypomagnesemia (1.4 mEq/L), which was replaced intravenously. Chest X-ray showed bilateral lower lobe opacities concerning for pneumonia, and he was started on intravenous ceftriaxone (Rocephin) and azithromycin. His oxygen requirement initially was 5 L nasal cannula but could be weaned to 2 L to maintain saturations above 92%. Mother at bedside's assist with repor. Toxicology screen shows presence of cannabinoids, benzodiazepines as well as methadone which patient takes for chronic pain. He is also a 2-3 pack-a-day smoker. Despite initial improvement, he decompensated after admission to the medical- surgical floor, developing tachypnea (RR ~45/min) and hypoxia (SpO? 88%) on higher-flow oxygen devices. He became obtunded with difficult arousal. A nonrebreather mask and subsequent Vapotherm failed to correct his increased work of breathing. He was given Solu-Medrol 125 mg IV, furosemide 40 mg IV, and transferred to the ICU for BiPAP support. D-dimer was 0.65, prompting a CT angiogram of the chest, which did not show a large pulmonary embolus but suggested a [id number] left lung consolidation consistent with possible aspiration. A mycoplasma test returned reactive. He is now receiving ICU-level care for acute respiratory failure secondary to bilateral pneumonia (influenza A positive, with likely mycoplasma involvement) and possible aspiration. VBG shows pH of 7.38 pCO2 of 52.2 and a pO2 of 74.7, lactic 0.8. Despite unimpressive gas,work of breathing remains extremely high patient obtunded, intubation has not been ruled out at this time. [facility] Disclaimer: The information contained in this section may have been updated after the patient was seen, as this information can be updated by other users. Social History Smoking Status: Current every day smoker tobacco type: cigarettes packs per day: 2 second hand exposure: Yes alcohol intake: never substance use type: denies use current occupational status: disabled Travel in the last 8 weeks: None household members: spouse housing: house current occupational exposures/hazards: No caffeine: Yes Have you lived/traveled outside [place] in past 30 days?: No Contact w/someone who lives/traveled outside [place] past 30 days?: No Exposure to someone with infectious disease in past 14 days?: No Do you have a fever (greater than 100.4 F or 38 C)?: No Have you tested positive for COVID-19: No Exposed to someone with COVID-19 in past 14 days?: No Do you have a sore throat?: No Do you have a cough?: No Do you have any weakness?: No Are you experiencing any nausea/vomitting?: No Do you have any diarrhea?: No Are you experiencing any unusual bleeding?: No Do you have any muscle aches/pain?: No Do you have any abdominal pain?: No Are you experiencing loss of taste or smell?: No Other Medical History Have you received the Flu Vaccine for this season: Yes Have you received the Pneumonia Vaccine: Yes Review of Systems Review of Systems Review of systems (narrative): 13 point review of systems negative outside HPI Meds Home Medications and Allergies Home Medications ?Medication ?Instructions ?Recorded ?Confirmed ?Type alprazolam 1 mg tablet 1 mg PO BIDP PRN Anxiety 15 days 10/12/17 05/05/24 History amlodipine 10 mg tablet 10 mg PO DAILY htn 30 days 10/12/17 05/05/24 History dutasteride 0.5 mg capsule 1 tab PO DAILY prostate 30 days 10/12/17 05/05/24 History gabapentin 300 mg capsule 300 mg PO BID 30 days 10/12/17 05/05/24 History labetalol 100 mg tablet 100 mg PO BID htn 30 days 10/12/17 05/05/24 History lisinopril 40 mg tablet 40 mg PO DAILY htn 30 days 10/12/17 05/05/24 History methadone 10 mg tablet 20 mg PO Q4H replacement therapy 10/12/17 05/05/24 History 30 days omeprazole 40 mg capsule,delayed 40 mg PO DAILY ppi 30 days 10/12/17 05/05/24 History release tiotropium bromide 18 mcg capsule 1 cap inhalation DAILY COPD 30 days 10/12/17 05/05/24 History with inhalation device albuterol sulfate 90 mcg/actuation 2 puffs IH Q4HP PRN Shortness Of 03/07/19 05/05/24 History aerosol inhaler Breath Or Wheezing insulin NPH-regular 70-30 U-100 25 units SQ DAILY Diabetes 03/07/19 05/05/24 History insulin 100 unit/mL subcutaneous pen insulin NPH-regular 70-30 U-100 40 unit SQ HS Diabetes 03/07/19 05/05/24 History insulin 100 unit/mL subcutaneous pen nitrofurantoin 100 mg PO BID Infection 04/10/19 05/05/24 History monohydrate/macrocrystals 100 mg capsule escitalopram oxalate 20 mg tablet 20 mg PO DAILY 05/05/24 05/05/24 History New Prescriptions to Start Prescriptions: Allergies Allergy/AdvReac Type Severity Reaction Status Date / Time butorphanol (From STADOL) Allergy Unknown UNKNOWN Verified 05/05/24 17:47 ketorolac (From TORADOL) Allergy Unknown UNKNOWN Verified 05/05/24 17:47 morphine (MORPHINE) AdvReac Unknown hiccups Verified 05/05/24 17:47 Exam Data for Last 24 hours Vital signs and Labs for Last 24 Hours: Temp Pulse Resp BP Pulse Ox O2 Del Method O2 Flow Rate 100.2 F H 94 H 25 H 168/86 H 95 BiPAP 35 05/05/24 22:07 05/06/24 01:00 05/06/24 01:00 05/06/24 01:00 05/06/24 01:00 05/06/24 01:00 05/05/24 20:27 FiO2 70 05/05/24 22:15 Laboratory Results - last 24 hr 05/05/24 13:43: HIV Ag/Ab Combo Qual Negative 05/05/24 13:44: WBC 15.2 H, RBC 5.47, Hgb 15.1, Hct 46.7, MCV 85.4, MCH 27.6, MCHC 32.3, RDW 14.3, Plt Count 240, MPV 9.8, Neut % (Auto) 90.7 H, Lymph % (Auto) 3.4 L, Winston % (Auto) 3.4, Eos % (Auto) 0.0 L, Baso % (Auto) 0.3, Neut # (Auto) 13.8 H, Lymph # (Auto) 0.5 L, Winston # (Auto) 0.5, Eos # (Auto) 0.0, Baso # (Auto) 0.1, Total Counted 100, Neutrophils % (Manual) 93 H, Band Neutrophils % 1.0, Lymphocytes % (Manual) 3 L, Monocytes % (Manual) 3, Platelet Estimate Normal, RBC Morphology Normal, Sodium 135 L, Potassium 4.0, Chloride 95 L, Carbon Dioxide 34 H, Anion Gap 10.0, BUN 12, Creatinine 0.50 L, Estimated Creat Clear 254, Estimated GFR 172, Est GFR ( Amer) 208, Glucose 209 H, Calcium 8.6, Magnesium 1.4 L, Total Bilirubin 0.3, AST 40, ALT 24, Alkaline Phosphatase 113, Troponin I 0.02, NT-Pro-B Natriuret Pep 1690 H, Total Protein 7.3, Albumin 3.9, Globulin 3.4 H, Albumin/Globulin Ratio 1.1, HCV Ab VINH w/Rflx PCR Qn Negative 05/05/24 13:48: SARS-CoV-2 (PCR) Not detected, Influenza A Untype (PCR) Detected A, Influenza Type B (PCR) Not detected 05/05/24 13:53: VBG pH 7.36, VBG pCO2 56.0 H, VBG pO2 36.7, VBG HCO3 30.6 H, VBG Total CO2 32.3 H, VBG O2 Saturation 73.2 H, VBG Base Excess 5.0 H, VBG Lactic Acid 1.4 05/05/24 18:05: Troponin I 0.02 05/05/24 19:31: Urine Opiates Screen Negative, Urine Methadone Screen Positive H , Ur Barbituates Screen Negative, Ur Phencyclidine Scrn Negative, Ur Amphetamines Screen Negative, U Benzodiazepines Scrn Positive H, Urine Cocaine Screen Negative, U Marijuana (THC) Screen Positive H 05/05/24 19:43: VBG pH 7.39, VBG pCO2 45.6, VBG pO2 76.5 H, VBG HCO3 27.0, VBG Total CO2 28.4 H, VBG O2 Saturation 95.8 H, VBG Base Excess 2.0, VBG Lactic Acid 0.7 05/05/24 19:55: Troponin I 0.02 05/05/24 20:19: POC Glucose 149 H 05/05/24 20:30: D-Dimer 0.62 H 05/05/24 21:30: Ammonia 21 05/05/24 22:29: POC Glucose 151 H 05/05/24 23:10: Mycoplasma pneumon IgM Reactive A 05/06/24 00:50: VBG pH 7.38, VBG pCO2 52.2 H, VBG pO2 74.7 H, VBG HCO3 30.3 H, VBG Total CO2 31.9 H, VBG O2 Saturation 96.0 H, VBG Base Excess 5.1 H, VBG Lactic Acid 0.8 I & O for Last 24 hours: Intake & Output 05/03/24 05/04/24 05/05/24 05/06/24 23:59 23:59 23:59 23:59 Intake Total 350 / 350 Output Total 300 / 300 Balance -300 / 50 350 / 350 Weight 112.582 kg Constitutional Constitutional: moderate distress and morbidly obese *Routine HEENT Exam Head: Present normocephalic Eye: Present EOMI and PERRL ENT: Present mucous membranes moist *Routine Neck Exam Neck: Present supple; Absent lymphadenopathy *Routine Respiratory Exam Respiratory: Present decreased breath sounds, rales, respiratory distress and diminished air movement *Routine Cardiovascular Exam Cardiovascular: Present RRR *Routine Abdominal Exam Abdominal: Present soft, normoactive bowel sounds and tenderness *Routine Rectal Exam Rectal:: deferred *Routine Genitalia Exam Genitalia:: deferred *Routine Extremities Exam Extremities: Absent cyanosis, clubbing or edema *Routine Skin Exam Skin: Present warm and wounds Comments: Ulceration behind right knee, appearance of chronic healing cellulitis bilateral lower extremity *Routine Neurological Exam Neurological: Present alert and oriented X3 Assessment and Plan *Assessment and plan (1) Diabetes mellitus with hyperglycemia: Status: Chronic Category: Medical Code(s): E11.65 - Type 2 diabetes mellitus with hyperglycemia (2) Obesity (BMI 30.0-34.9): Status: Acute Category: Medical Code(s): E66.811 - Obesity, class 1 (3) Acute exacerbation of chronic obstructive airways disease: Status: Acute Category: Medical Code(s): J44.1 - Chronic obstructive pulmonary disease with (acute) exacerbation (4) Bilateral pneumonia: Status: Acute Category: Medical Code(s): J18.9 - Pneumonia, unspecified organism (5) Mycoplasma infection: Status: Acute Category: Medical Code(s): A49.3 - Mycoplasma infection, unspecified site (6) Elevated d-dimer: Status: Acute Category: Medical Code(s): R79.89 - Other specified abnormal findings of blood chemistry (7) Hypertension: Status: Acute Category: Medical Code(s): I10 - Essential (primary) hypertension (8) Obesity: Status: Acute Category: Medical Code(s): E66.9 - Obesity, unspecified (9) Tachypnea: Status: Acute Category: Medical Code(s): R06.82 - Tachypnea, not elsewhere classified Plan Medical decision making: In light of the patient?s complex presentation?encompassing COPD exacerbation, confirmed Mycoplasma infection, possible aspiration pneumonia, and elevated BNP (1690) suggesting volume overload?the decision was made to provide broad- spectrum antimicrobial therapy (Zosyn + Levaquin) to cover aspiration pathogens and atypical organisms. Noninvasive ventilation (BiPAP) was initiated for ventilatory support due to significant hypercapnia and increased work of breathing. IV steroids (Solu-Medrol 125 mg) were administered to address airway inflammation (COPD flare) and acute lung injury. IV furosemide (Lasix) was given in response to volume overload. The patient remains in the ICU for close respiratory monitoring, with plans for frequent reassessment of gas exchange, hemodynamics, and response to therapy. Severe Pneumonia (Mycoplasma Positive, Likely Aspiration) * Antibiotics escalated to piperacillin-tazobactam and levofloxacin for robust coverage of anaerobes, typical bacteria, and atypical organisms (including Mycoplasma). * Continue to monitor respiratory status, inflammatory markers, and cultures as available. * Request pulmonary consult * Consider de-escalation once clinical stability is achieved and pathogen sensitivities are clearer. * Initiate nicotine patch for heavy smoking history Acute on Chronic Respiratory Failure / COPD Exacerbation * Patient on BiPAP for hypercapnia (pCO? ~56) and severe work of breathing. * Solu-Medrol 125 mg IV given for exacerbation/inflammatory response. * Continue bronchodilators (DuoNeb) and titrate oxygen to maintain SpO? ~88?92% (typical COPD target). * Repeat ABG/VBG to guide changes in ventilatory support. * Will defer continue steroid pulmonology Hypertension * Continue home medication regimen, initiate hydralazine 10 mg IV Q4 as needed for SBP greater than 170 or DBP greater than 100 Volume Overload (Elevated BNP ~1690) * Furosemide 40 mg IV administered; assess daily weights, input/output, and renal function. * Adjust diuretic therapy based on volume status, blood pressure, and urine output. Electrolyte Management * Hypomagnesemia (1.4 mg/dL) replaced IV; re-check levels and replace as needed. * Monitor potassium and other electrolytes given risk of shifts with diuretics and steroids. Influenza A * Patient tested positive for influenza A.continue oseltamivir and follow isolation precautions. Diabetes Mellitus * Glucose elevated (209); monitor carefully, especially with steroid therapy. * Use insulin to maintain goal glucose (e.g., 140?180 mg/dL), adjusting regimen as needed. * Continue Lantus, initiate sliding scale Disposition * ICU for ongoing respiratory monitoring and management of complex issues (pneumonia, COPD exacerbation, potential aspiration). * Potential step-down to a telemetry or medical burrows once stable on lower-flow oxygen or room air, with improved respiratory function. * Ensure close outpatient follow-up post-discharge for COPD management, diabetes control, and repeat imaging if indicated. * Lovenox for DVT prophylaxis
[2024-05-06 01:39] LABS: Influenza AH1, 2009 Detected (NotDetected)
--- NOTE | 2024-05-06 01:40 | PC.NURSE ---
critical lab result called to me regarding patient, flu H1N1 +
[2024-05-06] MEDS: SODIUM CHLORIDE 3% 15ML NEB 3 ML IH (01:45)
[2024-05-06] MEDS: HYDRALAZINE 20MG/ML VIAL 10 MG IV (04:10)
[2024-05-06] MEDS: BUDESONIDE 0.5MG/2ML NEB 0.5 MG IH ×2 (05:31→18:37)
[2024-05-06] MEDS: IPRATROPIUM/ALBUTEROL 3 ML NEB IH ×3 (05:31→18:37)
[2024-05-06 06:00] LABS: Basophils % 0.2 % (0.1-2.0); Hematocrit 46.2 % (42.0-52.0); Hemoglobin 14.7 g/dL (14.1-18.0); Lymphocytes # 0.4 K/mm3 (0.7-4.5); Lymphocytes % 3.2 % (10-50); Mean Corpuscular HGB Conc 31.8 g/dL (31.8-35.4); Mean Corpuscular Hemoglobin 27.3 pg (27.0-31.2); Mean Corpuscular Volume 85.9 fl (80-94); Mean Platelet Volume 10.2 fl (7.4-10.4); Monocytes # 0.4 K/mm3 (0.1-1.0); Monocytes % 3.1 % (1.7-9.3); Neutrophils # 12.5 K/mm3 (1.8-7.8); Neutrophils % 92.5 % (37.0-80.0); Platelet Count 267 K/mm3 (142-424); Red Blood Count 5.38 M/mm3 (4.60-6.20); Red Cell Distribution Width 14.7 % (11.5-17.5); White Blood Count 13.5 K/mm3 (4.8-10.8)
[2024-05-06 06:03] LABS: MANUAL DIFFERENTIAL MANUAL DIFFERENTIAL (MANUAL DIFF)
[2024-05-06 06:11] LABS: Alanine Aminotransferase 22 U/L (12-78); Albumin Level 3.2 g/dl (3.5-5.0); Albumin/Globulin Ratio 1.1 (1.1-1.8); Alkaline Phosphatase 86 U/L (38-126); Aspartate Amino Transferase 34 U/L (17-59); Blood Urea Nitrogen 15 mg/dl (9-20); Calcium 7.8 mg/dl (8.4-10.2); Carbon Dioxide 30 mmol/L (22.0-30.0); Chloride 97 mmol/L (98-107); Creatinine Clearance Estimated 219 mL/min (50-200); Estimated Glomerular Filt Rate 139 ml/min (>60); GFR (African American) 169 ML/MIN (>60); Glucose 250 mg/dl (74-100); Magnesium 2.3 mg/dl (1.6-2.3); Sodium 134 mmol/L (136-145); Total Protein,Serum 6.2 g/dl (6.3-8.2)
[2024-05-06 06:14] LABS: C-Reactive Protein 46.4 mg/L (0-4)
[2024-05-06 06:17] LABS: Bilirubin,Total 0.1 mg/dl (0.2-1.3); Hemoglobin A1C 7.2 % (4.0-6.0)
[2024-05-06 06:26] LABS: Lymphocytes % 3 % (10-50); Monocytes % 1 % (2-9); Neutrophils % 96 % (42-76); Platelet Estimate Normal; RBC Morphology Normal; Total Cells Counted 100
[2024-05-06 06:27] LABS: Procalcitonin 1.19 ng/mL (0.0-2.0)
[2024-05-06 06:32] LABS: Erythrocyte Sedimentation Rate 25 mm/hr (0-20)
[2024-05-06] MEDS: humaLOG 100 UNITS/ML 10ML VIAL (SSI) SUBCUT ×4 (06:37→20:41)
[2024-05-06 06:44] LABS: POC Glucose,Bedside 208 (70-110)
--- NOTE | 2024-05-06 07:48 | CA_ITS ---
APPROVED REPORT EXAM: Comprehensive 2D, Doppler, and color-flow Echocardiogram Cnc Operator Machinist: Maribel Albarado RT(R) Ht: 6 ft 0 in Wt: 248lbs BSA: 2.33 BP: 168/86 mmHg Indications: SOB, COPD, smoker, HTN, HLD, RBBB, mycoplasma pneumonia, hx CVA 2D Dimensions EF AP4 41.30 % GL Strain 2.2 % M-Mode Dimensions RVDd 2.45 cm (0.9-2.6) LA Diam 3.55 cm (1.9-4.0) LVDd 6.94 cm (3.5-5.7) LVDs 5.10 cm (3.5-5.7) IVSd 0.84 cm (0.6-1.1) PWd 0.80 cm (0.6-1.1) EF (Teich) 50.60% FS 26.50% EDV (Teich) 250.50 mL ESV (Teich) 123.80 mL LV Diastology E Decel Time 317 (160-240 msec) E/A Ratio 1.34 Mitral Valve MV A Velocity 66.0 (40-130 cm/s) E/A Ratio 1.34 Left Ventricle The left ventricle is normal size. The left ventricular systolic function is normal. The left ventricular ejection fraction is within the normal range. There is increased LV wall thickness. There is normal LV segmental wall motion. The left ventricular diastolic function is normal. LVEF is 60%. Right Ventricle The right ventricle is not very well-visualized, but grossly appears normal in size and function. Atria The left atrium size is normal. The right atrium size is normal. There is no Doppler evidence of interatrial shunt. Aortic Valve The aortic valve is mildly thickened. There is no aortic valvular stenosis. Trace aortic regurgitation is present. Mitral Valve The mitral valve is normal in structure. No evidence of mitral valve stenosis. There is no mitral valve regurgitation noted. Tricuspid Valve Tricuspid valve is grossly normal in structure and function. Trace tricuspid regurgitation. There is insufficient TR jet to estimate RVSP. Pulmonic Valve The pulmonary valve is normal in structure. Trace pulmonic regurgitation. Great Vessels The aortic root is normal in size. The ascending aorta is not well-visualized. IVC is normal in size and collapses >50% with inspiration. Pericardium There is no pericardial effusion. Other Information Study Quality: Fair Conclusion Normal biventricular systolic function. No significant valvular stenosis or regurgitation. Electronically signed by : Iveth Cummings MD 05/07/2024 11:44:58
[2024-05-06] MEDS: LISINOPRIL 20MG TABLET 40 MG PO (08:24)
[2024-05-06] MEDS: FINASTERIDE 5MG TABLET 5 MG PO (08:24)
[2024-05-06] MEDS: LABETALOL 100MG TABLET 100 MG PO ×2 (08:25→20:43)
[2024-05-06] MEDS: AMLODIPINE 10MG TABLET 10 MG PO (08:25)
[2024-05-06] MEDS: OSELTAMIVIR 75MG CAPSULE 75 MG PO ×2 (08:25→20:43)
[2024-05-06] MEDS: CITALOPRAM 40MG TABLET 40 MG PO (08:25)
[2024-05-06] MEDS: ACETAMINOPHEN 325MG TAB 650 MG PO ×2 (08:37→15:45)
--- NOTE | 2024-05-06 08:46 | P.CONPHA_ITS ---
Pharmacy Intervention Comments: MEDICATION RECONCILIATION COMPLETED ON PATIENT USING EXTERNAL FILL HISTORY FROM PHARMACY, CALL TO [facility], AND VIET REPORT. -NATHAN ARANA, CHANDRAKANTD
--- NOTE | 2024-05-06 08:46 | HMH.PHAINT1 ---
Pharmacy Intervention Comments: MEDICATION RECONCILIATION COMPLETED ON PATIENT USING EXTERNAL FILL HISTORY FROM PHARMACY, CALL TO [facility], AND VIET REPORT. -NATHAN ARANA, CHANDRAKANTD
--- NOTE | 2024-05-06 10:09 | P.CONS_ITS ---
History of Present Illness History of present illness: Ms. Poon is a 58-year-old male with reported history of CVA dyslipidemia hypertension tobacco abuse diabetes mellitus seizures COPD presented to the ER with worsening respiratory symptoms and pulmonary was called for further evaluation and management. Current smoker greater than [id number] smoking history. Not using any inhalers or oxygen at baseline. [facility] Disclaimer: The information contained in this section may have been updated after the patient was seen, as this information can be updated by other users. Medical History (Updated 05/06/24 @ 11:51 by Bhaskar Rivera MD) Mycoplasma pneumonia H1N1 influenza with pneumonia Acute respiratory failure with hypoxia Social History Smoking Status: Current every day smoker tobacco type: cigarettes packs per day: 2 second hand exposure: Yes alcohol intake: never substance use type: denies use current occupational status: disabled Travel in the last 8 weeks: None household members: spouse housing: house current occupational exposures/hazards: No caffeine: Yes Have you lived/traveled outside [place] in past 30 days?: No Contact w/someone who lives/traveled outside US past 30 days?: No Exposure to someone with infectious disease in past 14 days?: No Do you have a fever (greater than 100.4 F or 38 C)?: No Have you tested positive for COVID-19: No Exposed to someone with COVID-19 in past 14 days?: No Do you have a sore throat?: No Do you have a cough?: No Do you have any weakness?: No Are you experiencing any nausea/vomitting?: No Do you have any diarrhea?: No Are you experiencing any unusual bleeding?: No Do you have any muscle aches/pain?: No Do you have any abdominal pain?: No Are you experiencing loss of taste or smell?: No Review of Systems Constitutional Constitutional: Reports anorexia, Reports body ache(s) and Reports fatigue Eyes Eyes: Denies eye discharge, Denies dry eyes, Denies irritation and Denies itchy eyes ENT Ears, Nose, Mouth, and Throat: Denies epistaxis, Denies facial pain, Denies lip swelling and Denies throat swelling *Cardiovascular Cardiovascular: Reports dyspnea and Reports dyspnea on exertion *Respiratory Respiratory: Reports chest congestion, Reports cough, Reports dyspnea, Reports dyspnea on exertion, Reports excessive phlegm production, Denies hemoptysis, Denies pain on inspiration, Denies pain with cough and Reports wheezing *Gastrointestinal Gastrointestinal: Denies abdominal pain, Denies belching and Denies cramping *Musculoskeletal Musculoskeletal: Reports back pain, Reports muscle weakness, Reports myalgias and Reports other (No small joint swelling or Pain) Psychiatric Psychiatric: Denies homicidal ideation and Denies suicidal ideation Endocrine Endocrine: Reports fatigue and Denies heat intolerance Hematologic/Lymphatic Hematologic/Lymphatic: Denies easy bleeding and Denies lymphadenopathy Allergic/Immunologic Allergic/Immunologic: Denies itchy eyes, Denies lip swelling, Denies throat swelling and Reports wheezing Pulmonology Exam Inpatient Vital signs and Labs for Last 24 Hours: Temp Pulse Resp BP Pulse Ox O2 Del Method O2 Flow Rate 99.4 F 81 20 149/67 H 93 L Vapotherm 30 05/06/24 08:00 05/06/24 08:00 05/06/24 08:00 05/06/24 08:00 05/06/24 08:00 05/06/24 09:00 05/06/24 09:00 FiO2 70 05/06/24 08:00 Laboratory Results - last 24 hr 05/05/24 13:43: HIV Ag/Ab Combo Qual Negative 05/05/24 13:44: WBC 15.2 H, RBC 5.47, Hgb 15.1, Hct 46.7, MCV 85.4, MCH 27.6, MCHC 32.3, RDW 14.3, Plt Count 240, MPV 9.8, Neut % (Auto) 90.7 H, Lymph % (Auto) 3.4 L, [place] % (Auto) 3.4, Eos % (Auto) 0.0 L, Baso % (Auto) 0.3, Neut # (Auto) 13.8 H, Lymph # (Auto) 0.5 L, [place] # (Auto) 0.5, Eos # (Auto) 0.0, Baso # (Auto) 0.1, Total Counted 100, Neutrophils % (Manual) 93 H, Band Neutrophils % 1.0, Lymphocytes % (Manual) 3 L, Monocytes % (Manual) 3, Platelet Estimate Normal, RBC Morphology Normal, Sodium 135 L, Potassium 4.0, Chloride 95 L, C arbon Dioxide 34 H, Anion Gap 10.0, BUN 12, Creatinine 0.50 L, Estimated Creat Clear 254, Estimated GFR 172, Est GFR ( Amer) 208, Glucose 209 H, Calcium 8.6, Magnesium 1.4 L, Total Bilirubin 0.3, AST 40, ALT 24, Alkaline Phosphatase 113, Troponin I 0.02, NT-Pro-B Natriuret Pep 1690 H, Total Protein 7.3, Albumin 3.9, Globulin 3.4 H, Albumin/Globulin Ratio 1.1, HCV Ab VINH w/Rflx PCR Qn Negative 05/05/24 13:48: SARS-CoV-2 (PCR) Not detected, Influenza A Untype (PCR) Detected A, Influenza Type B (PCR) Not detected 05/05/24 13:53: VBG pH 7.36, VBG pCO2 56.0 H, VBG pO2 36.7, VBG HCO3 30.6 H, VBG Total CO2 32.3 H, VBG O2 Saturation 73.2 H, VBG Base Excess 5.0 H, VBG Lactic Acid 1.4 05/05/24 13:58: Chlamy pneumoniae PCR Not detected, Adenovirus (PCR) Not detected, B. pertussis DNA (PCR) Not detected, Coronavirus OC43 (PCR) Not detected, Coronavirus HKU1 (PCR) Not detected, Coronavirus 229E (PCR) Not detected, SARS-CoV-2 (PCR) Not detected, Coronavirus NL63 (PCR) Not detected, Human Metapneumovir PCR Not detected, Influenza A (H1) PCR Not detected, Influ A (H1N1/09) PCR Detected A, Influenza A (H3) PCR Not detected, Influenza Type A (PCR) Not detected, Influenza Type B (PCR) Not detected, M. pneumoniae (PCR) Not detected, Parainfluenza 1 (PCR) Not detected, Parainfluenza 2 (PCR) Not detected, Parainfluenza 3 (PCR) Not detected, Parainfluenza 4 (PCR) Not detected, RSV (PCR) Not detected, Entero/Rhino (PCR) Not detected 05/05/24 18:05: Troponin I 0.02 05/05/24 19:31: Urine Opiates Screen Negative, Urine Methadone Screen Positive H , Ur Barbituates Screen Negative, Ur Phencyclidine Scrn Negative, Ur Amphetamines Screen Negative, U Benzodiazepines Scrn Positive H, Urine Cocaine Screen Negative, U Marijuana (THC) Screen Positive H 05/05/24 19:43: VBG pH 7.39, VBG pCO2 45.6, VBG pO2 76.5 H, VBG HCO3 27.0, VBG Total CO2 28.4 H, VBG O2 Saturation 95.8 H, VBG Base Excess 2.0, VBG Lactic Acid 0.7 05/05/24 19:55: Troponin I 0.02 05/05/24 20:19: POC Glucose 149 H 05/05/24 20:30: D-Dimer 0.62 H 05/05/24 21:30: Ammonia 21 05/05/24 22:29: POC Glucose 151 H 05/05/24 23:10: Mycoplasma pneumon IgM Reactive A 05/06/24 00:50: VBG pH 7.38, VBG pCO2 52.2 H, VBG pO2 74.7 H, VBG HCO3 30.3 H, V BG Total CO2 31.9 H, VBG O2 Saturation 96.0 H, VBG Base Excess 5.1 H, VBG Lactic Acid 0.8 05/06/24 05:37: WBC 13.5 H, RBC 5.38, Hgb 14.7, Hct 46.2, MCV 85.9, MCH 27.3, MCHC 31.8, RDW 14.7, Plt Count 267, MPV 10.2, Neut % (Auto) 92.5 H, Lymph % (Auto) 3.2 L, [place] % (Auto) 3.1, Eos % (Auto) 0.0 L, Baso % (Auto) 0.2, Neut # (Auto) 12.5 H, Lymph # (Auto) 0.4 L, [place] # (Auto) 0.4, Eos # (Auto) 0.0, Baso # (Auto) 0.0, Total Counted 100, Neutrophils % (Manual) 96 H, Lymphocytes % (Manual) 3 L, Monocytes % (Manual) 1 L, Platelet Estimate Normal, RBC Morphology Normal, ESR 25 H, Sodium 134 L, Potassium 4.0, Chloride 97 L, Carbon Dioxide 30, Anion Gap 11.0, BUN 15, Creatinine 0.60 L, Estimated Creat Clear 219, Estimated GFR 139, Est GFR ( Amer) 169, Glucose 250 H, Hemoglobin A1c 7.2 H, C alcium 7.8 L, Magnesium 2.3 D, Total Bilirubin 0.1 L, AST 34, ALT 22, Alkaline Phosphatase 86, C-Reactive Protein 46.4 H, Total Protein 6.2 L, Albumin 3.2 L D, Globulin 3.0, Albumin/Globulin Ratio 1.1, Procalcitonin 1.19 05/06/24 06:32: POC Glucose 208 H I & O for Labs for Last 24 Hours: Intake & Output 05/03/24 05/04/24 05/05/24 05/06/24 23:59 23:59 23:59 23:59 Intake Total 720 / 720 Output Total 300 / 300 450 / 450 Balance -300 / 50 270 / 270 Weight 248 lb 3.2 oz 248 lb 3.213 oz Constitutional: Present severe distress Head: Present normocephalic and atraumatic ENT: Present normal exam, normal oropharynx and mucous membranes moist Neck: Present normal inspection and full ROM Respiratory: Present respiratory distress, rhonchi, diminished air movement and able to speak in complete sentences; Absent wheezes Cardiac: Present S1/S2, Tachycardia and radial pulses present GI: Present soft and distention; Absent tenderness or guarding Skin: Absent intact, cyanosis or jaundice Comment:: LE ulcers and bilateral swelling Rt > lt Neuro: Present alert, awake and oriented x 3 Extremities: Present normal inspection; Absent clubbing or cyanosis Psychiatric: Present normal affect and cooperative Meds Home Medications and Allergies Home Medications ?Medication ?Instructions ?Recorded ?Confirmed ?Type alprazolam 1 mg tablet 1 mg PO BIDP PRN Anxiety 15 days 10/12/17 05/05/24 History amlodipine 10 mg tablet 10 mg PO DAILY 30 days 10/12/17 05/05/24 History dutasteride 0.5 mg capsule 0.5 mg PO DAILY 30 days 10/12/17 05/06/24 History gabapentin 300 mg capsule 300 mg PO TID 30 days 10/12/17 05/06/24 History labetalol 100 mg tablet 100 mg PO BID 30 days 10/12/17 05/05/24 History lisinopril 40 mg tablet 40 mg PO DAILY 30 days 10/12/17 05/05/24 History methadone 10 mg tablet 20 mg PO Q6H 30 days 10/12/17 05/06/24 History albuterol sulfate 90 mcg/actuation 2 puffs IH Q4HP PRN Shortness Of 03/07/19 05/05/24 History aerosol inhaler Breath Or Wheezing escitalopram oxalate 20 mg tablet 20 mg PO DAILY 05/05/24 05/05/24 History insulin NPH-regular 70-30 U-100 30 unit SQ BID 05/06/24 05/06/24 History insulin 100 unit/mL subcutaneous pen (Novolin 70-30 FlexPen U-100 Insulin) New Prescriptions to Start Prescriptions: Allergies Allergy/AdvReac Type Severity Reaction Status Date / Time butorphanol (From STADOL) Allergy Unknown UNKNOWN Verified 05/05/24 17:47 ketorolac (From TORADOL) Allergy Unknown UNKNOWN Verified 05/05/24 17:47 morphine (MORPHINE) AdvReac Unknown hiccups Verified 05/05/24 17:47 Results Laboratory Findings 05/06/24 05:37 05/06/24 05:37 PT/INR, D-dimer D-Dimer 0.62 ug/mL (0.0-0.5) H 05/05/24 20:30 Abnormal lab findings: Abnormal Labs 05/05/24 05/05/24 05/05/24 13:44 13:48 13:53 WBC 15.2 H Neut % (Auto) 90.7 H Lymph % (Auto) 3.4 L Eos % (Auto) 0.0 L Neut # (Auto) 13.8 H Lymph # (Auto) 0.5 L Neutrophils % (Manual) 93 H Lymphocytes % (Manual) 3 L Monocytes % (Manual) ESR D-Dimer VBG pCO2 56.0 H VBG pO2 VBG HCO3 30.6 H VBG Total CO2 32.3 H VBG O2 Saturation 73.2 H VBG Base Excess 5.0 H Sodium 135 L Chloride 95 L Carbon Dioxide 34 H Creatinine 0.50 L Glucose 209 H POC Glucose Hemoglobin A1c Calcium Magnesium 1.4 L Total Bilirubin C-Reactive Protein NT-Pro-B Natriuret Pep 1690 H Total Protein Albumin Globulin 3.4 H Urine Methadone Screen U Benzodiazepines Scrn U Marijuana (THC) Screen Influ A (H1N1/09) PCR Influenza A Untype (PCR) Detected A Mycoplasma pneumon IgM 05/05/24 05/05/24 05/05/24 13:58 19:31 19:43 WBC Neut % (Auto) Lymph % (Auto) Eos % (Auto) Neut # (Auto) Lymph # (Auto) Neutrophils % (Manual) Lymphocytes % (Manual) Monocytes % (Manual) ESR D-Dimer VBG pCO2 VBG pO2 76.5 H VBG HCO3 VBG Total CO2 28.4 H VBG O2 Saturation 95.8 H VBG Base Excess Sodium Chloride Carbon Dioxide Creatinine Glucose POC Glucose Hemoglobin A1c Calcium Magnesium Total Bilirubin C-Reactive Protein NT-Pro-B Natriuret Pep Total Protein Albumin Globulin Urine Methadone Screen Positive H U Benzodiazepines Scrn Positive H U Marijuana (THC) Screen Positive H Influ A (H1N1/09) PCR Detected A Influenza A Untype (PCR) Mycoplasma pneumon IgM 05/05/24 05/05/24 05/05/24 20:19 20:30 22:29 WBC Neut % (Auto) Lymph % (Auto) Eos % (Auto) Neut # (Auto) Lymph # (Auto) Neutrophils % (Manual) Lymphocytes % (Manual) Monocytes % (Manual) ESR D-Dimer 0.62 H VBG pCO2 VBG pO2 VBG HCO3 VBG Total CO2 VBG O2 Saturation VBG Base Excess Sodium Chloride Carbon Dioxide Creatinine Glucose POC Glucose 149 H 151 H Hemoglobin A1c Calcium Magnesium Total Bilirubin C-Reactive Protein NT-Pro-B Natriuret Pep Total Protein Albumin Globulin Urine Methadone Screen U Benzodiazepines Scrn U Marijuana (THC) Screen Influ A (H1N1/09) PCR Influenza A Untype (PCR) Mycoplasma pneumon IgM 05/05/24 05/06/24 05/06/24 23:10 00:50 05:37 WBC 13.5 H Neut % (Auto) 92.5 H Lymph % (Auto) 3.2 L Eos % (Auto) 0.0 L Neut # (Auto) 12.5 H Lymph # (Auto) 0.4 L Neutrophils % (Manual) 96 H Lymphocytes % (Manual) 3 L Monocytes % (Manual) 1 L ESR 25 H D-Dimer VBG pCO2 52.2 H VBG pO2 74.7 H VBG HCO3 30.3 H VBG Total CO2 31.9 H VBG O2 Saturation 96.0 H VBG Base Excess 5.1 H Sodium 134 L Chloride 97 L Carbon Dioxide Creatinine 0.60 L Glucose 250 H POC Glucose Hemoglobin A1c 7.2 H Calcium 7.8 L Magnesium Total Bilirubin 0.1 L C-Reactive Protein 46.4 H NT-Pro-B Natriuret Pep Total Protein 6.2 L Albumin 3.2 L D Globulin Urine Methadone Screen U Benzodiazepines Scrn U Marijuana (THC) Screen Influ A (H1N1) PCR Influenza A Untype (PCR) Mycoplasma pneumon IgM Reactive A 05/06/24 06:32 WBC Neut % (Auto) Lymph % (Auto) Eos % (Auto) Neut # (Auto) Lymph # (Auto) Neutrophils % (Manual) Lymphocytes % (Manual) Monocytes % (Manual) ESR D-Dimer VBG pCO2 VBG pO2 VBG HCO3 VBG Total CO2 VBG O2 Saturation VBG Base Excess Sodium Chloride Carbon Dioxide Creatinine Glucose POC Glucose 208 H Hemoglobin A1c Calcium Magnesium Total Bilirubin C-Reactive Protein NT-Pro-B Natriuret Pep Total Protein Albumin Globulin Urine Methadone Screen U Benzodiazepines Scrn U Marijuana (THC) Screen Influ A () PCR Influenza A Untype (PCR) Mycoplasma pneumon IgM Assessment and Plan *Assessment and plan (1) Acute respiratory failure with hypoxia: Status: Acute Category: Medical Code(s): J96.01 - Acute respiratory failure with hypoxia (2) H1N1 influenza with pneumonia: Status: Acute Category: Medical Code(s): J10.00 - Influenza due to other identified influenza virus with unspecified type of pneumonia (3) Mycoplasma pneumonia: Status: Acute Category: Medical Code(s): J15.7 - Pneumonia due to Mycoplasma pneumoniae Plan Ms. Poon is a 58-year-old male with reported history of CVA dyslipidemia hypertension tobacco abuse diabetes mellitus seizures COPD presented to the ER with worsening respiratory symptoms and pulmonary was called for further evaluation and management. Current smoker greater than [id number] smoking history. Not using any inhalers or oxygen at baseline. Resp PCR positive for H1N1 and Mycoplasma Pneumoniae. Venous blood gas upon admission chronic hypercarbic respiratory failure. On Levoflaxacin and Neb treatments. CTA PE protocol suboptimal, no obvious evidence of pulmonary embolism. Bilateral lower lobe airspace disease right > left On examination severe respiratory distress. On high flow nasal cannula 30 L 70%, weaned to 30 L 50%. Admits lower extremity venous Doppler negative recently 1 week ago at an outside hospital. Plan: Continue to try to nasal abdomen supplementation to maintain O2 saturation goal of 90% and above, wean as tolerated DuoNebs every 6 hours along with Pulmicort every 12 scheduled Antibiotics can be weaned to levofloxacin from pulmonary standpoint. Continue Tamiflu x 5 days pending clinical improvement Bilateral lower extremity venous Doppler
--- NOTE | 2024-05-06 10:17 | HMH.PTWOUND ---
Rehab Inpt Wound Evaluation Rehab IP Wound Evaluation Start: 05/05/24 23:21 Freq: ONCE Status: Active Protocol: Document 05/06/24 10:09 ANDREEA (Rec: 05/06/24 10:16 ANDREEA [id number]) Rehab PT Wound Assessment Subjective Subjective 58-year-old male with a past medical history significant for cerebrovascular accident, anxiety, hyperlipidemia, chronic pain, hypertension, tobacco use, diabetes mellitus , seizures, obesity, right bundle branch block, and COPD. He presents with wounds to the anterior R knee, posterior R knee, and anterior R ankle upon admission. He has long hx of intermittent wounds to the R LE due to neuropathy throughout the R LE and wears a long leg brace anytime he is active throughout the day. He is being treated at an outpatient wound care facility at an outside facility at this time. Wound Right Anterior Ankle Wound Type unknown etiology Is This a Chronic Wound Yes Wound Length (cm) 1.0 Wound Width (cm) 3.5 Wound Depth (cm) 0.2 Wound Bed Appearance [place]s Wound Margins Description Well Defined Drainage Amount None Primary Dressing Composite Dressing Change Patient Tolerance Tolerated Well Right Posterior Knee Wound Type Skin Tear Is This a Chronic Wound Yes Wound Length (cm) 1.5 Wound Width (cm) 3.0 Wound Depth (cm) 0.1 Wound Bed Appearance [place] Wound Margins Description Well Defined Surrounding Tissue Appearance [place] Drainage Amount Scant Primary Dressing Medicated Gauze Pad Comment petroleum gauze Wound Secondary Dressing Type Composite Dressing Change Patient Tolerance Tolerated Well Right Anterior Knee Wound Type Pressure Ulcer Is This a Chronic Wound Yes Wound Staging Stage II Query Text:Stage I - Unbroken, red skin, no blanching. Stage II - Skin broken, superficial skin loss involving epidermis alone or also dermis. Partial loss of skin layers. Stage III - Pressure area involves epidermis, dermis and subcutaneous tissue, full thickness skin loss. Stage IV - Pressure area involves epidermis, subcutaneous tissue, bone and other supportive tissue. Full thickness skin loss with extensive destruction of underlying tissue and structures. Wound Length (cm) 7.0 Wound Width (cm) 7.0 Wound Depth (cm) 0.2 Wound Bed Appearance [place] Percentage Granulated (%) 100 Wound Margins Description Well Defined Surrounding Tissue Appearance [place] Wound Drainage Description Serosanguineous Drainage Amount Small Primary Dressing Composite Comment polymem silver Wound Secondary Dressing Type Composite Comment optifoam Wound Debridement Method Gauze,Mechanical Wound Debridement Amount of Tissue None Removed Dressing Change Patient Tolerance Tolerated Well Plan/Recommendation Comment Currently no excisional debridement needed. [facility] [place]. Thank you for inviloving the wound care team in the care of this patient. Eval Complexity Eval Charge Codes 69058 - High Complexity PHYSICIAN CERTIFICATION: I certify the specified therapy services for Temo Poon are required, authorized, and reviewed every 30 days.
--- NOTE | 2024-05-06 11:18 | PC.NURSE ---
1110 - Dr. Rivera @ bedside. O2 titrated down to 50% FIO2. Pt tolerating well. SPO2 currently 94%.
[2024-05-06] MEDS: levoFLOXacin 750 MG TABLET PO (11:26)
[2024-05-06 11:49] LABS: POC Glucose,Bedside 217 (70-110)
--- NOTE | 2024-05-06 11:53 | CA_ITS ---
FINAL REPORT TECHNIQUE: Bilateral lower extremity venous duplex was performed with augmentation and compression. CLINICAL HISTORY: hypoxia, Flu A, DM, HTN, PAD. Patient is missing toes on right foot. He currently has large oozing ulcers/sores in posterior right knee as well as anterior right knee. Wounds are bandaged and not accessible with ultrasound. COMPARISON: None FINDINGS: Proper flow is seen throughout the visualized deep venous systems bilaterally. The right popliteal, proximal posterior tibial, and peroneal veins are not image secondary to bandages and open wounds. There is no evidence of deep venous thrombosis. IMPRESSION: No evidence of deep venous thrombosis. Reviewed, Interpreted and Dictated by Rito Lindquist MD Transcribed by Sunita Briggs Authenticated and [facility]
[2024-05-06] MEDS: PIPERACILLIN/TAZO 4.5 GM in 0.9 % SODIUM CHLORIDE 100 ML IV ×2 (12:40→18:41)
--- NOTE | 2024-05-06 13:00 | PC.NURSE ---
O2 decreased to 25 L 50% via vapotherm by Kennedy Urrutia,RT
--- NOTE | 2024-05-06 13:24 | PC.NURSE ---
1320 - Vapotherm weaned by Kennedy Urrutia,RT to 20L/ 50%. Pt tolerating well. SPO2 is 93% at this time. Pt resting in bed, venous doppler of BLE being performed at bedside currently.
--- NOTE | 2024-05-06 14:41 | PC.NURSE ---
1428 - Pt called out for nurse from room. When entering room, pt face was flushed and was visibly anxious. Pt reports that he could not catch his breath and/ get good deep breath. SPO2 at time of event 88-89%. Pt assisted to side of bed. Upon auscultation lung sounds were very tight. RT called to bedside for prn breathing tx, vapotherm increased to 30L/55% by RT. Pt responded well and SPO2 increased to 94%. Pt requested to stay sitting on side of bed and verbalized that he felt his breathing was better. Call camp placed w/in reach. No further needs voiced at this time. 1450 - D Renan,RT lowered vapotherm settings to 25L/50%.
[2024-05-06] MEDS: METHYLPREDNISOLONE SOD SUCC 40MG VIAL 40 MG IV (16:06)
[2024-05-06 16:51] LABS: Lactate Venous 1.7 mmol/L (0.4-2.0); VBG Base Excess 1.7 mmol/L (-2.4-2.3); VBG HCO3 26.1 mmol/L (23-30); VBG PCO2 41.1 mmol/L (35-51); VBG PH 7.42 mmol/L (7.31-7.41); VBG PO2 139.4 mmol/L (28-40); VBG Total CO2 27.4 mmol/L (23-27)
[2024-05-06 17:07] LABS: POC Glucose,Bedside 180 (70-110)
--- NOTE | 2024-05-06 17:46 | PC.NURSE ---
Pt sitting up on side of bed. Reports breathing is better, resp even and non-labored. Remains on vapotherm 25L/ 50% FIO2, SPO2 > 90%. Reports occasional cough that has become somewhat more productive since he has been up to the side of the bed. Pt did c/o a headache that he was medicated twice far this shift w/ verbalized relief. Denies chest pain, only occasional pain w/ coughing. Mother Currently at bedside conversing w/ pt. No further needs voiced. Call camp w/in reach. Plain of care ongoing.
[2024-05-06 20:28] LABS: POC Glucose,Bedside 212 (70-110)
[2024-05-06] MEDS: NICOTINE 21MG/24HR PATCH 21 MG TD (20:43)
--- NOTE | 2024-05-06 22:39 | PC.NURSE ---
Pt is resting comfortably in bed. Pt has had no complaints so far this shift. Pt remains on 25L/50% FIO2 on the vapotherm. LS diminished. Meds given per JUN. VSS. Call light in reach. Pt refused a bath for tonight, and states his mother will help him with a bath tomorrow.
--- NOTE | 2024-05-06 22:48 | P.PN_ITS ---
Subjective *Date: 05/06/24 *Time: 22:48 Interval history: Patient feeling much better today, continues to require Vapotherm. He endorses he apparently passed out a few days ago. Concern for polypharmacy as patient uses methadone, Xanax, THC. Exam Data for Last 24 hours Vital signs and Labs for Last 24 Hours: Temp Pulse Resp BP Pulse Ox O2 Del Method O2 Flow Rate 98.8 F 74 15 151/75 H 95 Vapotherm 25 05/06/24 20:00 05/06/24 22:00 05/06/24 22:00 05/06/24 22:00 05/06/24 22:00 05/06/24 22:00 05/06/24 22:00 FiO2 50 05/06/24 20:26 Laboratory Results - last 24 hr 05/05/24 13:58: Chlamy pneumoniae PCR Not detected, Adenovirus (PCR) Not detected, B. pertussis DNA (PCR) Not detected, Coronavirus OC43 (PCR) Not detected, Coronavirus HKU1 (PCR) Not detected, Coronavirus 229E (PCR) Not detected, SARS-CoV-2 (PCR) Not detected, Coronavirus NL63 (PCR) Not detected, Human Metapneumovir PCR Not detected, Influenza A (H1) PCR Not detected, Influ A (H1N1/09) PCR Detected A, Influenza A (H3) PCR Not detected, Influenza Type A (PCR) Not detected, Influenza Type B (PCR) Not detected, M. pneumoniae (PCR) Not detected, Parainfluenza 1 (PCR) Not detected, Parainfluenza 2 (PCR) Not detected, Parainfluenza 3 (PCR) Not detected, Parainfluenza 4 (PCR) Not detected, RSV (PCR) Not detected, Entero/Rhino (PCR) Not detected 05/05/24 23:10: Mycoplasma pneumon IgM Reactive A 05/06/24 00:50: VBG pH 7.38, VBG pCO2 52.2 H, VBG pO2 74.7 H, VBG HCO3 30.3 H, VBG Total CO2 31.9 H, VBG O2 Saturation 96.0 H, VBG Base Excess 5.1 H, VBG Lactic Acid 0.8 05/06/24 05:37: WBC 13.5 H, RBC 5.38, Hgb 14.7, Hct 46.2, MCV 85.9, MCH 27.3, MCHC 31.8, RDW 14.7, Plt Count 267, MPV 10.2, Neut % (Auto) 92.5 H, Lymph % (Auto) 3.2 L, [place] % (Auto) 3.1, Eos % (Auto) 0.0 L, Baso % (Auto) 0.2, Neut # (Auto) 12.5 H, Lymph # (Auto) 0.4 L, Harrison # (Auto) 0.4, Eos # (Auto) 0.0, Baso # (Auto) 0.0, Total Counted 100, Neutrophils % (Manual) 96 H, Lymphocytes % (Manual) 3 L, Monocytes % (Manual) 1 L, Platelet Estimate Normal, RBC Morphology Normal, ESR 25 H, Sodium 134 L, Potassium 4.0, Chloride 97 L, Carbon Dioxide 30, Anion Gap 11.0, BUN 15, Creatinine 0.60 L, Estimated Creat Clear 219, Estimated GFR 139, Est GFR ( Amer) 169, Glucose 250 H, Hemoglobin A1c 7.2 H, Calcium 7.8 L, Magnesium 2.3 D, Total Bilirubin 0.1 L, AST 34, ALT 22, Alkaline Phosphatase 86, C-Reactive Protein 46.4 H, Total Protein 6.2 L, Albumin 3.2 L D, Globulin 3.0, Albumin/Globulin Ratio 1.1, Procalcitonin 1.19 05/06/24 06:32: POC Glucose 208 H 05/06/24 11:35: POC Glucose 217 H 05/06/24 15:51: VBG pH 7.42 H, VBG pCO2 41.1, VBG pO2 139.4 H, VBG HCO3 26.1, VBG Total CO2 27.4 H, VBG O2 Saturation 99.0 H, VBG Base Excess 1.7, VBG Lactic Acid 1.7 05/06/24 17:00: POC Glucose 180 H 05/06/24 20:20: POC Glucose 212 H I & O for Last 24 hours: Intake & Output 05/03/24 05/04/24 05/05/24 05/06/24 23:59 23:59 23:59 23:59 Intake Total 1110 / 1110 Output Total 300 / 300 1170 / 1170 Balance -300 / 50 -60 / -60 Weight 112.582 kg 112.582 kg Microbiology Reports for the Last 24 Hours: Microbiology 05/05/24 13:53 Blood Blood Culture - Preliminary NO GROWTH AFTER 24 HOURS 05/05/24 13:44 Blood Blood Culture - Preliminary NO GROWTH AFTER 24 HOURS 05/06/24 01:54 Sputum - Expectorated Sputum Gram Stain - Final Constitutional Constitutional: no acute distress *Routine HEENT Exam Head: Present normocephalic Eye: Present EOMI and PERRL ENT: Present mucous membranes moist *Routine Neck Exam Neck: Present supple; Absent lymphadenopathy *Routine Respiratory Exam Respiratory: Present wheezes; Absent CTA bilaterally *Routine Cardiovascular Exam Cardiovascular: Present RRR *Routine Abdominal Exam Abdominal: Present soft and normoactive bowel sounds; Absent tenderness *Routine Extremities Exam Extremities: Absent cyanosis, clubbing or edema *Routine Skin Exam Skin: Present warm; Absent rash *Routine Neurological Exam Neurological: Present alert and oriented X3 Assessment and Plan *Assessment and plan (1) Bilateral pneumonia: Status: Acute Category: Medical Code(s): J18.9 - Pneumonia, unspecified organism Plan Temo Poon is a 58-year-old male who was admitted for acute hypoxic respiratory failure. #Acute hypoxic respiratory failure #Acute COPD exacerbation #Influenza A, mycoplasma #Community-acquired versus aspiration pneumonia #Sepsis ? CTA reveals significant right lower lobe pneumonia. Concerning for aspiration, patient endorses that he may have passed out a few days ago. ? WBC improving 13.5, peaked at 15.5. Tachycardia resolved today. ? Pulmonology consulted, recommended weaning antibiotics just Levaquin. ? Continue Levaquin, discontinue Zosyn. ? Continue DuoNebs, Pulmicort, Solu-Medrol. ? Continue Tamiflu 75 mg twice daily. ? Continue Vapotherm 25 L 30%, wean as tolerated. ? Patient does have a history of sleep apnea, CPAP does not work at home apparently. #Polypharmacy #Former opioid use disorder ? Patient takes methadone, Xanax and uses THC. ? Resumed methadone at a lower dose from 20 to 10 mg every 6 hours. ? Continue Xanax as needed to avoid withdrawals. ? Will need to advise on polypharmacy and how it could have contributed to him apparently passing out and likely aspiration pneumonia. #Diabetes ? Hemoglobin A1c 7.2% ? LDSSI, ACHS glucose checks. ? Lantus Full code DVT prophylaxis: Lovenox 40 mg
[2024-05-07] VITALS (21 sets, daily range): BP systolic 133–187; BP diastolic 58–91; PULSE 70–93; RESP 1–25; TEMP 36.6–37.3; O2SAT 89–96; BMI 33.6; BMI 33.4
[2024-05-07] MEDS: IPRATROPIUM/ALBUTEROL 3 ML NEB IH ×5 (00:07→23:09)
[2024-05-07 00:09] LABS: POC Glucose,Bedside 159 (70-110)
--- NOTE | 2024-05-07 00:58 | PC.NURSE ---
Addendum entered by Marina Guevara RN 05/07/24 01:05: Pt had just received scheduled breathing treatment. Original Note: Pt woke up and stated he felt like he couldn't breathe. Assessment completed and no changes noted. VSS. Pt refused PRN anxiety meds. Pt is now asleep.
[2024-05-07] MEDS: ACETAMINOPHEN 325MG TAB 650 MG PO (03:23)
[2024-05-07] MEDS: METHYLPREDNISOLONE SOD SUCC 40MG VIAL 40 MG IV ×2 (03:23→16:25)
--- NOTE | 2024-05-07 05:03 | PC.NURSE ---
Pt c/o of headache this morning and was given Tylenol per JUN. Pt has had no other complaints. Assessment unchanged. VSS. Remains on vapotherm 25L/50% FIO2. Tolerating well with O2 sats >93%. Belly breathing noted while asleep. Pt has refused turning in bed, stating he doesn't want to lie down, because he feels like he can't breathe when doing so. Pt also refused to elevate right foot/leg. Pt has used IS this shift, pulling 1500ml. Baker catheter draining clear/yellow urine. 460ml UO so far this shift. Pt is resting well at this time. Call light in reach.
--- NOTE | 2024-05-07 05:24 | PC.NURSE ---
pt woken up for morning labs and finger stick. Pt appears lethargic, states he is just tired. FSBS 154. Per Coleman YAP, ok to order VBG at this time. RT notified.
[2024-05-07 05:32] LABS: Lactate Venous 0.8 mmol/L (0.4-2.0); VBG HCO3 30.8 mmol/L (23-30); VBG Oxygen Saturation 98.9 % (50-70); VBG PCO2 50.7 mmol/L (35-51); VBG PO2 137.3 mmol/L (28-40); VBG Total CO2 32.3 mmol/L (23-27)
[2024-05-07 05:35] LABS: POC Glucose,Bedside 154 (70-110)
[2024-05-07] MEDS: humaLOG 100 UNITS/ML 10ML VIAL (SSI) SUBCUT ×4 (05:48→22:09)
[2024-05-07] MEDS: BUDESONIDE 0.5MG/2ML NEB 0.5 MG IH ×2 (06:15→18:28)
[2024-05-07] MEDS: METHADONE 10MG TABLET 10 MG PO ×3 (06:18→18:36)
[2024-05-07 06:49] LABS: Basophils % 0.1 % (0.1-2.0); Hematocrit 46.8 % (42.0-52.0); Hemoglobin 14.6 g/dL (14.1-18.0); Lymphocytes # 0.8 K/mm3 (0.7-4.5); Lymphocytes % 8.6 % (10-50); Mean Corpuscular HGB Conc 31.2 g/dL (31.8-35.4); Mean Corpuscular Hemoglobin 27.6 pg (27.0-31.2); Mean Corpuscular Volume 88.5 fl (80-94); Mean Platelet Volume 10.2 fl (7.4-10.4); Monocytes # 0.8 K/mm3 (0.1-1.0); Monocytes % 8.2 % (1.7-9.3); Neutrophils # 7.8 K/mm3 (1.8-7.8); Neutrophils % 82.4 % (37.0-80.0); Platelet Count 265 K/mm3 (142-424); Red Blood Count 5.29 M/mm3 (4.60-6.20); Red Cell Distribution Width 15.1 % (11.5-17.5); White Blood Count 9.5 K/mm3 (4.8-10.8)
[2024-05-07 07:56] LABS: Albumin Level 2.7 g/dl (3.5-5.0); Chloride 96 mmol/L (98-107)
[2024-05-07 07:57] LABS: Potassium 4.7 mmoL/L (3.5-5.1); Sodium 135 mmol/L (136-145)
[2024-05-07 07:59] LABS: Alanine Aminotransferase 27 U/L (12-78); Anion Gap 10.7 mEq/L (5-15); Aspartate Amino Transferase 35 U/L (17-59); Blood Urea Nitrogen 23 mg/dl (9-20); Carbon Dioxide 33 mmol/L (22.0-30.0); Creatinine Clearance Estimated 188 mL/min (50-200); Estimated Glomerular Filt Rate 117 ml/min (>60); GFR (African American) 141 ML/MIN (>60); Globulin 2.8 g/dL (1.3-3.2); Total Protein,Serum 5.5 g/dl (6.3-8.2)
[2024-05-07 08:00] LABS: Alkaline Phosphatase 86 U/L (38-126); Calcium 7.7 mg/dl (8.4-10.2); Glucose 162 mg/dl (74-100); Magnesium 2.1 mg/dl (1.6-2.3)
[2024-05-07 08:03] LABS: Bilirubin,Total < 0.1 mg/dl (0.2-1.3)
[2024-05-07] MEDS: AMLODIPINE 10MG TABLET 10 MG PO (08:06)
[2024-05-07] MEDS: ENOXAPARIN 40MG/0.4ML SYRINGE 40 MG SUBCUT (08:06)
[2024-05-07] MEDS: LABETALOL 100MG TABLET 100 MG PO ×2 (08:06→22:11)
[2024-05-07] MEDS: LISINOPRIL 20MG TABLET 40 MG PO (08:06)
[2024-05-07] MEDS: OSELTAMIVIR 75MG CAPSULE 75 MG PO ×2 (08:06→22:11)
[2024-05-07] MEDS: FINASTERIDE 5MG TABLET 5 MG PO (08:06)
[2024-05-07] MEDS: CITALOPRAM 40MG TABLET 40 MG PO (08:07)
--- NOTE | 2024-05-07 08:54 | PC.NURSE ---
0850- Vapotherm weaned to 25L/45% FIO2 by Dr. Mauricio, SPO2 currently 95%.
--- NOTE | 2024-05-07 09:21 | EXP.ACUTE.PN ---
Subjective *Date: 05/07/24 *Time: 17:10 Interval history: Patient states he is feeling better today. Weaning Vapotherm quite well. On morning rounds, weaned to 45% Vapotherm. Plan for weaning to nasal cannula today if tolerates. Tolerating p.o. intake. Denies any chest pain or shortness of breath. Overall feeling better. Afebrile overnight. No nausea or vomiting. Medical Exam Vital signs and Labs for Last 24 Hours: Vital Signs Temp Pulse Pulse Resp BP BP Pulse Ox 05/07/24 08:58 05/07/24 08:00 98.7 F 79 16 158/88 H 94 L 05/07/24 08:00 79 05/07/24 07:47 80 1 L 96 05/07/24 06:51 05/07/24 06:36 83 05/07/24 06:36 85 05/07/24 06:36 96 05/07/24 06:00 81 15 96 05/07/24 06:00 80 15 168/91 H 96 05/07/24 05:00 05/07/24 04:01 139/58 L 05/07/24 04:01 83 19 96 05/07/24 04:00 70 05/07/24 04:00 98.0 F 75 22 139/58 L 95 05/07/24 03:00 05/07/24 02:12 95 05/07/24 02:01 79 25 H 95 05/07/24 02:00 78 20 153/85 H 95 05/07/24 01:00 05/07/24 00:16 85 19 158/76 H 94 L 05/07/24 00:08 82 05/07/24 00:08 93 H 05/07/24 00:00 94 L 05/07/24 00:00 98.2 F 84 23 165/84 H 94 L 05/07/24 00:00 82 05/06/24 23:00 05/06/24 22:00 74 15 151/75 H 95 05/06/24 21:45 72 32 H 95 05/06/24 21:30 74 20 96 05/06/24 21:15 74 19 96 05/06/24 21:00 74 21 96 05/06/24 20:45 86 13 94 L 05/06/24 20:34 05/06/24 20:30 83 11 L 95 05/06/24 20:26 94 L 05/06/24 20:15 82 13 94 L 05/06/24 20:01 81 15 95 05/06/24 20:01 150/82 H 05/06/24 20:00 76 16 95 05/06/24 20:00 77 05/06/24 20:00 98.8 F 82 20 150/82 H 94 L 05/06/24 18:46 05/06/24 18:38 80 05/06/24 18:38 82 05/06/24 18:38 93 L 05/06/24 17:43 85 16 165/78 H 94 L 05/06/24 17:00 05/06/24 16:00 95 H 05/06/24 16:00 97.9 F 98 H 21 164/78 H 91 L 05/06/24 15:00 05/06/24 14:49 94 L 05/06/24 14:43 91 L 05/06/24 14:00 90 20 91 L 05/06/24 14:00 99 F 89 20 163/76 H 92 L 05/06/24 13:35 93 L 05/06/24 13:02 86 05/06/24 13:02 85 05/06/24 13:02 94 L 05/06/24 13:00 05/06/24 12:00 85 05/06/24 12:00 98.7 F 87 23 150/67 H 92 L 05/06/24 11:00 05/06/24 10:00 84 21 138/71 91 L O2 Del Method O2 Flow Rate FiO2 05/07/24 08:58 Vapotherm 05/07/24 08:00 Vapotherm 05/07/24 08:00 05/07/24 07:47 Vapotherm 25 50 05/07/24 06:51 Vapotherm 05/07/24 06:36 05/07/24 06:36 05/07/24 06:36 Vapotherm 25 50 05/07/24 06:00 05/07/24 06:00 05/07/24 05:00 Vapotherm 05/07/24 04:01 05/07/24 04:01 05/07/24 04:00 05/07/24 04:00 Vapotherm 25 05/07/24 03:00 Vapotherm 25 05/07/24 02:12 Vapotherm 25 50 05/07/24 02:01 05/07/24 02:00 05/07/24 01:00 Vapotherm 25 05/07/24 00:16 Vapotherm 25 05/07/24 00:08 05/07/24 00:08 05/07/24 00:00 Vapotherm 25 50 05/07/24 00:00 Vapotherm 25 05/07/24 00:00 05/06/24 23:00 Vapotherm 25 05/06/24 22:00 Vapotherm 25 05/06/24 21:45 05/06/24 21:30 05/06/24 21:15 05/06/24 21:00 05/06/24 20:45 05/06/24 20:34 Vapotherm 25 05/06/24 20:30 05/06/24 20:26 Vapotherm 25 50 05/06/24 20:15 05/06/24 20:01 05/06/24 20:01 05/06/24 20:00 05/06/24 20:00 05/06/24 20:00 Vapotherm 25 50 05/06/24 18:46 Vapotherm 25 05/06/24 18:38 05/06/24 18:38 05/06/24 18:38 Vapotherm 25 50 05/06/24 17:43 BiPAP 25 50 05/06/24 17:00 Vapotherm 25 05/06/24 16:00 05/06/24 16:00 Vapotherm 25 50 05/06/24 15:00 Vapotherm 25 05/06/24 14:49 Vapotherm 25 50 05/06/24 14:43 Vapotherm 30 55 05/06/24 14:00 Vapotherm 20 50 05/06/24 14:00 Vapotherm 20 50 05/06/24 13:35 Vapotherm 20 50 05/06/24 13:02 05/06/24 13:02 05/06/24 13:02 Vapotherm 25 50 05/06/24 13:00 Vapotherm 25 05/06/24 12:00 05/06/24 12:00 Vapotherm 30 50 05/06/24 11:00 Vapotherm 30 05/06/24 10:00 Vapotherm 30 70 Intake and Output 05/06/24 05/07/24 05/07/24 23:59 07:59 15:59 Intake Total 270 / 1110 240 / 240 Output Total 720 / 1420 400 / 400 Balance -450 / -310 -400 / -160 240 / -160 Intake: Intake, Oral Amount 120 / 610 240 / 240 Intake, Total IV Amount 150 / 500 Pipercillin/Tazo 3.375 gm In 0. 150 / 250 9 % Sodium Chloride 50 ml @ 100 mls/hr IV Q6H [facility] Rx#:[id number] Output: Output, Urine Amount 120 / 570 150 / 150 Output, Urine Amount (Catheter) 600 / 850 250 / 250 Baker 600 / 850 250 / 250 Laboratory Results - last 24 hr 05/06/24 11:35: POC Glucose 217 H 05/06/24 15:51: VBG pH 7.42 H, VBG pCO2 41.1, VBG pO2 139.4 H, VBG HCO3 26.1, VBG Total CO2 27.4 H, VBG O2 Saturation 99.0 H, VBG Base Excess 1.7, VBG Lactic Acid 1.7 05/06/24 17:00: POC Glucose 180 H 05/06/24 20:20: POC Glucose 212 H 05/07/24 00:02: POC Glucose 159 H 05/07/24 05:20: WBC 9.5 D, RBC 5.29, Hgb 14.6, Hct 46.8, MCV 88.5, MCH 27.6, MCHC 31.2 L, RDW 15.1, Plt Count 265, MPV 10.2, Neut % (Auto) 82.4 H, Lymph % (Auto) 8.6 L, [place] % (Auto) 8.2, Eos % (Auto) 0.0 L, Baso % (Auto) 0.1, Neut # (Auto) 7.8, Lymph # (Auto) 0.8, [place] # (Auto) 0.8, Eos # (Auto) 0.0, Baso # (Auto) 0.0, Sodium 135 L, Potassium 4.7, Chloride 96 L, Carbon Dioxide 33 H, Anion Gap 10.7, BUN 23 H D, Creatinine 0.70, Estimated Creat Clear 188, Estimated GFR 117, Est GFR ( Amer) 141, Glucose 162 H D, Calcium 7.7 L, Magnesium 2.1, Total Bilirubin < 0.1 L, AST 35, ALT 27, Alkaline Phosphatase 86, Total Protein 5.5 L, Albumin 2.7 L D, Globulin 2.8, Albumin/Globulin Ratio 1.0 L 05/07/24 05:21: POC Glucose 154 H 05/07/24 05:24: VBG pH 7.40, VBG pCO2 50.7, VBG pO2 137.3 H, VBG HCO3 30.8 H, VBG Total CO2 32.3 H, VBG O2 Saturation 98.9 H, VBG Base Excess 6.0 H, VBG Lactic Acid 0.8 I & O for Labs for Last 24 Hours: Intake & Output 05/04/24 05/05/24 05/06/24 05/07/24 23:59 23:59 23:59 23:59 Intake Total 1110 / 1110 240 / 240 Output Total 300 / 300 1170 / 1420 400 / 400 Balance -300 / 50 -60 / -310 -160 / -160 Weight 112.582 kg 112.582 kg Microbiology Reports for the Last 24 Hours: Microbiology 05/05/24 13:53 Blood Blood Culture - Preliminary NO GROWTH AFTER 24 HOURS 05/05/24 13:44 Blood Blood Culture - Preliminary NO GROWTH AFTER 24 HOURS 05/06/24 01:54 Sputum - Expectorated Sputum Gram Stain - Final Constitutional: Present no acute distress, obese, chronically ill appearing and cooperative Head: Present atraumatic and normocephalic Respiratory: Present prolonged expiratory phase and wheezes; Absent rhonchi or crackles Comment:: Improved air movement Cardiac: Present Reg Rate and Rhythm GI: Present normal bowel sounds; Absent tenderness Extremities: Present normal inspection and full ROM Skin: Present intact; Absent erythema Neuro: Present Grossly Intact, alert, awake, oriented x 3 and moves all extremities Assessment and Plan *Assessment and plan (1) Acute respiratory failure with hypoxia: Status: Acute Category: Medical Code(s): J96.01 - Acute respiratory failure with hypoxia (2) Bilateral pneumonia: Status: Acute Category: Medical Code(s): J18.9 - Pneumonia, unspecified organism (3) H1N1 influenza with pneumonia: Status: Acute Category: Medical Code(s): J10.00 - Influenza due to other identified influenza virus with unspecified type of pneumonia (4) Mycoplasma infection: Status: Acute Category: Medical Code(s): A49.3 - Mycoplasma infection, unspecified site (5) Acute exacerbation of chronic obstructive airways disease: Status: Acute Category: Medical Code(s): J44.1 - Chronic obstructive pulmonary disease with (acute) exacerbation (6) Obesity: Status: Acute Category: Medical Code(s): E66.9 - Obesity, unspecified (7) Hypertension: Status: Acute Category: Medical Code(s): I10 - Essential (primary) hypertension Plan Temo Poon is a 58-year-old male who was admitted for acute hypoxic respiratory failure. Found to have flu and mycoplasma. Pulmonology consulted and assisting with care. Continues to require inpatient management. De-escalate from ICU to MedSur level of care. Problems addressed as follows: #Acute hypoxic respiratory failure #Acute COPD exacerbation #Influenza A, mycoplasma #Community-acquired versus aspiration pneumonia #Sepsis ? CTA reveals significant right lower lobe pneumonia. Concerning for aspiration, patient endorses that he may have passed out a few days ago. ? White blood count normalized to 9.5 today. Hemoglobin 14.6. Morning VBG with pH 7.4, pCO2 of 50.7. -Discussed case with pulmonology again, continue Levaquin 750 mg daily, continue Tamiflu 75 mg twice daily to complete 5 days total. -Kidney function normal with BUN 23, creatinine 0.7. Magnesium 2.1, potassium 4.7. -Supplemental oxygen as needed for goal sats greater 90%. Weaning Vapotherm today to nasal cannula. ? Continue DuoNebs, Pulmicort, Solu-Medrol. ? Patient does have a history of sleep apnea, CPAP does not work at home apparently. #Polypharmacy #Former opioid use disorder ? Patient takes methadone, Xanax and uses THC. ? Resumed methadone at a lower dose from 20 to 10 mg every 6 hours. ? Continue Xanax as needed to avoid withdrawals. -Polypharmacy increases risk for aspiration pneumonia. #Diabetes ? Hemoglobin A1c 7.2% [facility] glucose checks. Received 14 units of insulin yesterday. Morning glucose 162 Full code DVT prophylaxis: Lovenox 40 mg Diabetic diet
--- NOTE | 2024-05-07 09:45 | PC.NURSE ---
0915 - Vapotherm turned down to 20L/ 40% by Kennedy Urrutia,RT
--- NOTE | 2024-05-07 09:57 | EXP.PULM.PN ---
Subjective *Date: 05/07/24 *Time: 12:15 Interval history: No acute respiratory vents overnight. Patient admits continued improvement in his respiratory symptoms. Pulmonology Exam Inpatient Vital signs and Labs for Last 24 Hours: Temp Pulse Resp BP Pulse Ox O2 Del Method O2 Flow Rate 98.7 F 79 16 158/88 H 94 L Vapotherm 20 05/07/24 08:00 05/07/24 08:00 05/07/24 08:00 05/07/24 08:00 05/07/24 09:33 05/07/24 09:33 05/07/24 09:33 FiO2 40 05/07/24 09:33 Laboratory Results - last 24 hr 05/06/24 11:35: POC Glucose 217 H 05/06/24 15:51: VBG pH 7.42 H, VBG pCO2 41.1, VBG pO2 139.4 H, VBG HCO3 26.1, VBG Total CO2 27.4 H, VBG O2 Saturation 99.0 H, VBG Base Excess 1.7, VBG Lactic Acid 1.7 05/06/24 17:00: POC Glucose 180 H 05/06/24 20:20: POC Glucose 212 H 05/07/24 00:02: POC Glucose 159 H 05/07/24 05:20: WBC 9.5 D, RBC 5.29, Hgb 14.6, Hct 46.8, MCV 88.5, MCH 27.6, MCHC 31.2 L, RDW 15.1, Plt Count 265, MPV 10.2, Neut % (Auto) 82.4 H, Lymph % (Auto) 8.6 L, [place] % (Auto) 8.2, Eos % (Auto) 0.0 L, Baso % (Auto) 0.1, Neut # (Auto) 7.8, Lymph # (Auto) 0.8, [place] # (Auto) 0.8, Eos # (Auto) 0.0, Baso # (Auto) 0.0, Sodium 135 L, Potassium 4.7, Chloride 96 L, Carbon Dioxide 33 H, Anion Gap 10.7, BUN 23 H D, Creatinine 0.70, Estimated Creat Clear 188, Estimated GFR 117, Est GFR ( Amer) 141, Glucose 162 H D, Calcium 7.7 L, Magnesium 2.1, Total Bilirubin < 0.1 L, AST 35, ALT 27, Alkaline Phosphatase 86, Total Protein 5.5 L, Albumin 2.7 L D, Globulin 2.8, Albumin/Globulin Ratio 1.0 L 05/07/24 05:21: POC Glucose 154 H 05/07/24 05:24: VBG pH 7.40, VBG pCO2 50.7, VBG pO2 137.3 H, VBG HCO3 30.8 H, VBG Total CO2 32.3 H, VBG O2 Saturation 98.9 H, VBG Base Excess 6.0 H, VBG Lactic Acid 0.8 Temp Pulse Resp BP Pulse Ox O2 Del Method O2 Flow Rate 99.4 F 81 20 149/67 H 93 L Vapotherm 30 05/06/24 08:00 05/06/24 08:00 05/06/24 08:00 05/06/24 08:00 05/06/24 08:00 05/06/24 09:00 05/06/24 09:00 FiO2 70 05/06/24 08:00 Laboratory Results - last 24 hr 05/05/24 13:43: HIV Ag/Ab Combo Qual Negative 05/05/24 13:44: WBC 15.2 H, RBC 5.47, Hgb 15.1, Hct 46.7, MCV 85.4, MCH 27.6, MCHC 32.3, RDW 14.3, Plt Count 240, MPV 9.8, Neut % (Auto) 90.7 H, Lymph % (Auto) 3.4 L, [place] % (Auto) 3.4, Eos % (Auto) 0.0 L, Baso % (Auto) 0.3, Neut # (Auto) 13.8 H, Lymph # (Auto) 0.5 L, [place] # (Auto) 0.5, Eos # (Auto) 0.0, Baso # (Auto) 0.1, Total Counted 100, Neutrophils % (Manual) 93 H, Band Neutrophils % 1.0, Lymphocytes % (Manual) 3 L, Monocytes % (Manual) 3, Platelet Estimate Normal, RBC Morphology Normal, Sodium 135 L, Potassium 4.0, Chloride 95 L, Carbon Dioxide 34 H, Anion Gap 10.0, BUN 12, Creatinine 0.50 L, Estimated Creat Clear 254, Estimated GFR 172, Est GFR ( Amer) 208, Glucose 209 H, Calcium 8.6, Magnesium 1.4 L, Total Bilirubin 0.3, AST 40, ALT 24, Alkaline Phosphatase 113, Troponin I 0.02, NT-Pro-B Natriuret Pep 1690 H, Total Protein 7.3, Albumin 3.9, Globulin 3.4 H, Albumin/Globulin Ratio 1.1, HCV Ab VINH w/Rflx PCR Qn Negative 05/05/24 13:48: SARS-CoV-2 (PCR) Not detected, Influenza A Untype (PCR) Detected A, Influenza Type B (PCR) Not detected 05/05/24 13:53: VBG pH 7.36, VBG pCO2 56.0 H, VBG pO2 36.7, VBG HCO3 30.6 H, VBG Total CO2 32.3 H, VBG O2 Saturation 73.2 H, VBG Base Excess 5.0 H, VBG Lactic Acid 1.4 05/05/24 13:58: Chlamy pneumoniae PCR Not detected, Adenovirus (PCR) Not detected, B. pertussis DNA (PCR) Not detected, Coronavirus OC43 (PCR) Not detected, Coronavirus HKU1 (PCR) Not detected, Coronavirus 229E (PCR) Not detected, SARS-CoV-2 (PCR) Not detected, Coronavirus NL63 (PCR) Not detected, Human Metapneumovir PCR Not detected, Influenza A (H1) PCR Not detected, Influ A (H1N1/09) PCR Detected A, Influenza A (H3) PCR Not detected, Influenza Type A (PCR) Not detected, Influenza Type B (PCR) Not detected, M. pneumoniae (PCR) Not detected, Parainfluenza 1 (PCR) Not detected, Parainfluenza 2 (PCR) Not detected, Parainfluenza 3 (PCR) Not detected, Parainfluenza 4 (PCR) Not detected, RSV (PCR) Not detected, Entero/Rhino (PCR) Not detected 05/05/24 18:05: Troponin I 0.02 05/05/24 19:31: Urine Opiates Screen Negative, Urine Methadone Screen Positive H, Ur Barbituates Screen Negative, Ur Phencyclidine Scrn Negative, Ur Amphetamines Screen Negative, U Benzodiazepines Scrn Positive H, Urine Cocaine Screen Negative, U Marijuana (THC) Screen Positive H 05/05/24 19:43: VBG pH 7.39, VBG pCO2 45.6, VBG pO2 76.5 H, VBG HCO3 27.0, VBG Total CO2 28.4 H, VBG O2 Saturation 95.8 H, VBG Base Excess 2.0, VBG Lactic Acid 0.7 05/05/24 19:55: Troponin I 0.02 05/05/24 20:19: POC Glucose 149 H 05/05/24 20:30: D-Dimer 0.62 H 05/05/24 21:30: Ammonia 21 05/05/24 22:29: POC Glucose 151 H 05/05/24 23:10: Mycoplasma pneumon IgM Reactive A 05/06/24 00:50: VBG pH 7.38, VBG pCO2 52.2 H, VBG pO2 74.7 H, VBG HCO3 30.3 H, VBG Total CO2 31.9 H, VBG O2 Saturation 96.0 H, VBG Base Excess 5.1 H, VBG Lactic Acid 0.8 05/06/24 05:37: WBC 13.5 H, RBC 5.38, Hgb 14.7, Hct 46.2, MCV 85.9, MCH 27.3, MCHC 31.8, RDW 14.7, Plt Count 267, MPV 10.2, Neut % (Auto) 92.5 H, Lymph % (Auto) 3.2 L, [place] % (Auto) 3.1, Eos % (Auto) 0.0 L, Baso % (Auto) 0.2, Neut # (Auto) 12.5 H, Lymph # (Auto) 0.4 L, [place] # (Auto) 0.4, Eos # (Auto) 0.0, Baso # (Auto) 0.0, Total Counted 100, Neutrophils % (Manual) 96 H, Lymphocytes % (Manual) 3 L, Monocytes % (Manual) 1 L, Platelet Estimate Normal, RBC Morphology Normal, ESR 25 H, Sodium 134 L, Potassium 4.0, Chloride 97 L, Carbon Dioxide 30, Anion Gap 11.0, BUN 15, Creatinine 0.60 L, Estimated Creat Clear 219, Estimated GFR 139, Est GFR ( Amer) 169, Glucose 250 H, Hemoglobin A1c 7.2 H, Calcium 7.8 L, Magnesium 2.3 D, Total Bilirubin 0.1 L, AST 34, ALT 22, Alkaline Phosphatase 86, C-Reactive Protein 46.4 H, Total Protein 6.2 L, Albumin 3.2 L D, Globulin 3.0, Albumin/Globulin Ratio 1.1, Procalcitonin 1.19 05/06/24 06:32: POC Glucose 208 H I & O for Labs for Last 24 Hours: Intake & Output 05/04/24 05/05/24 05/06/24 05/07/24 23:59 23:59 23:59 23:59 Intake Total 1110 / 1110 240 / 240 Output Total 300 / 300 1170 / 1420 400 / 400 Balance -300 / 50 -60 / -310 -160 / -160 Weight 248 lb 3.2 oz 248 lb 3.213 oz Intake & Output 05/03/24 05/04/24 05/05/24 05/06/24 23:59 23:59 23:59 23:59 Intake Total 720 / 720 Output Total 300 / 300 450 / 450 Balance -300 / 50 270 / 270 Weight 248 lb 3.2 oz 248 lb 3.213 oz Microbiology Reports for the Last 24 Hours: Microbiology 05/05/24 13:53 Blood Blood Culture - Preliminary NO GROWTH AFTER 24 HOURS 05/05/24 13:44 Blood Blood Culture - Preliminary NO GROWTH AFTER 24 HOURS 05/06/24 01:54 Sputum - Expectorated Sputum Gram Stain - Final Constitutional: Present severe distress Head: Present normocephalic and atraumatic ENT: Present normal exam, normal oropharynx and mucous membranes moist Neck: Present normal inspection and full ROM Respiratory: Present respiratory distress, rhonchi, diminished air movement and able to speak in complete sentences; Absent wheezes Cardiac: Present S1/S2, Tachycardia and radial pulses present GI: Present soft and distention; Absent tenderness or guarding Skin: Absent intact, cyanosis or jaundice Comment:: LE ulcers and bilateral swelling Rt > lt Neuro: Present alert, awake and oriented x 3 Extremities: Present normal inspection; Absent clubbing or cyanosis Psychiatric: Present normal affect and cooperative Assessment and Plan *Assessment and plan (1) Acute respiratory failure with hypoxia: Status: Acute Category: Medical Code(s): J96.01 - Acute respiratory failure with hypoxia (2) H1N1 influenza with pneumonia: Status: Acute Category: Medical Code(s): J10.00 - Influenza due to other identified influenza virus with unspecified type of pneumonia (3) Mycoplasma pneumonia: Status: Acute Category: Medical Code(s): J15.7 - Pneumonia due to Mycoplasma pneumoniae Plan Ms. Poon is a 58-year-old male with reported history of CVA dyslipidemia hypertension tobacco abuse diabetes mellitus seizures COPD presented to the ER with worsening respiratory symptoms and pulmonary was called for further evaluation and management. Current smoker greater than [id number] smoking history. Not using any inhalers or oxygen at baseline. Resp PCR positive for H1N1 and Mycoplasma Pneumoniae. Venous blood gas upon admission chronic hypercarbic respiratory failure. On Levoflaxacin and Neb treatments. CTA PE protocol suboptimal, no obvious evidence of pulmonary embolism. Bilateral lower lobe airspace disease right > left On initial examination severe respiratory distress. On high flow nasal cannula 30 L 70%, weaned to 30 L 50%. Admits lower extremity venous Doppler negative recently 1 week ago at an outside hospital. Interval update: No acute respiratory vents overnight. Improving oxygen requirements. Lower EXTR venous Doppler negative for DVT. Improving leukocytosis. Plan: Wean to nasal cannula oxygen supplementation as tolerated DuoNebs every 6 hours along with Pulmicort every 12 scheduled Continue levofloxacin for total of 5 days Continue Tamiflu x 5 days pending clinical improvement
--- NOTE | 2024-05-07 09:58 | XR_ITS ---
FINAL REPORT CLINICAL HISTORY: Hypoxia COMPARISON: 05/05/2024 FINDINGS: The heart size is at the upper limits of normal. The mediastinum is normal. There is no focal infiltrate or edema. There are mild chronic changes in the lung bases bilaterally, unchanged since the prior exam. There are no pleural effusions. There is no pneumothorax. There is no osseous abnormality. IMPRESSION: Chronic appearing changes in the lung bases bilaterally, unchanged since 05/05/2024. Heart size upper limits of normal. Reviewed, Interpreted and Dictated by Rito Lindquist MD Transcribed by Jory Dai Authenticated and [facility]
--- NOTE | 2024-05-07 10:00 | PC.NURSE ---
Vapotherm increased to 25L/45% by RT. While resting pt was desatting to 88-89% on 20L/40%.
--- NOTE | 2024-05-07 11:09 | PC.NURSE ---
Dr. Rivera @ bedside. Pt placed on 6 L via nasal cannula.
[2024-05-07] MEDS: levoFLOXacin 750 MG TABLET PO (11:16)
[2024-05-07 11:20] LABS: POC Glucose,Bedside 238 (70-110)
--- NOTE | 2024-05-07 12:36 | PC.NURSE ---
Addendum entered by Briseida Adam RN 05/07/24 12:40: Pt O2 weaned to 4 L @ this time. Original Note: Pt bathed on side of bed w/ assistance of mother. Tolerated activity well. Linens changed by staff and pt placed in fresh gown. Mother assisted pt w/ applying brace to RLE. Pt aided w/ use of walker to standing position. Pt tolerated well and stated that it felt good to get up and move around. Pt was able to ambulate a few steps w/ walker to recliner. No s/s of resp distress during this activity. Pt remained on 5 L O2 per nasal cannula. Currently sitting up in recliner conversing w/ mother while eating lunch. Call camp w/in reach. No voiced concerns at this time. Plan of care ongoing.
--- NOTE | 2024-05-07 14:16 | PC.NURSE ---
O2 WEANED TO 2 L BY Kennedy MONSALVE,RT
[2024-05-07 14:22] LABS: MRSA DNA PCR Negative (Negative)
[2024-05-07 20:56] LABS: POC Glucose,Bedside 273 (70-110)
[2024-05-07] MEDS: PRO-STAT AWC 30ML LIQUID PACKET 30 ML PO (22:09)
[2024-05-07] MEDS: NICOTINE 21MG/24HR PATCH 21 MG TD (22:11)
[2024-05-08] VITALS: BP 158/74; PULSE 69; PULSE 82; RESP 16; TEMP 37.1; O2SAT 94
[2024-05-08 00:01] VITALS: PULSE 83
[2024-05-08] MEDS: METHADONE 10MG TABLET 10 MG PO ×3 (00:21→13:00)
[2024-05-08] MEDS: METHYLPREDNISOLONE SOD SUCC 40MG VIAL 40 MG IV (03:05)
[2024-05-08 04:00] VITALS: BP 158/81; PULSE 72; RESP 16; TEMP 36.6; O2SAT 94; BMI 33.1
--- NOTE | 2024-05-08 04:29 | PC.NURSE ---
Pt has been up to chair this shift and has been A/O X 4 . 02 on at 2 liters/nc and maintaining sats above 90%. He still has occasional ADMINISTRATIVE TECHNICIAN cough but denies increased SOA. He reports mild pain but managed with the scheduled methadone. Baker cath patent to BSD, draining adeq amounts clear yellow urine. FSBS at 9 pm at 273, covered with insulin per SS, see JUN.
[2024-05-08 05:45] LABS: POC Glucose,Bedside 168 (70-110)
[2024-05-08 06:02] VITALS: PULSE 78; PULSE 80; O2SAT 92
[2024-05-08] MEDS: IPRATROPIUM/ALBUTEROL 3 ML NEB IH (06:02)
[2024-05-08] MEDS: BUDESONIDE 0.5MG/2ML NEB 0.5 MG IH (06:02)
[2024-05-08 06:18] LABS: Basophils % 0.1 % (0.1-2.0); Lymphocytes # 0.9 K/mm3 (0.7-4.5); Lymphocytes % 9.7 % (10-50); Mean Corpuscular HGB Conc 31.9 g/dL (31.8-35.4); Mean Corpuscular Hemoglobin 27.9 pg (27.0-31.2); Mean Corpuscular Volume 87.5 fl (80-94); Mean Platelet Volume 10.1 fl (7.4-10.4); Monocytes # 0.6 K/mm3 (0.1-1.0); Neutrophils # 7.3 K/mm3 (1.8-7.8); Neutrophils % 82.5 % (37.0-80.0); Platelet Count 268 K/mm3 (142-424); Red Blood Count 5.37 M/mm3 (4.60-6.20); Red Cell Distribution Width 14.6 % (11.5-17.5); White Blood Count 8.9 K/mm3 (4.8-10.8)
[2024-05-08 06:30] LABS: Albumin Level 3.3 g/dl (3.5-5.0); Chloride 96 mmol/L (98-107); Potassium 4.2 mmoL/L (3.5-5.1); Sodium 132 mmol/L (136-145)
[2024-05-08 06:32] LABS: Alanine Aminotransferase 29 U/L (12-78); Aspartate Amino Transferase 36 U/L (17-59); Blood Urea Nitrogen 25 mg/dl (9-20); Creatinine Clearance Estimated 216 mL/min (50-200); Estimated Glomerular Filt Rate 139 ml/min (>60); GFR (African American) 169 ML/MIN (>60)
[2024-05-08 06:33] LABS: Albumin/Globulin Ratio 1.3 (1.1-1.8); Alkaline Phosphatase 85 U/L (38-126); Anion Gap 8.2 mEq/L (5-15); Bilirubin,Total 0.1 mg/dl (0.2-1.3); Calcium 7.9 mg/dl (8.4-10.2); Carbon Dioxide 32 mmol/L (22.0-30.0); Globulin 2.6 g/dL (1.3-3.2); Glucose 196 mg/dl (74-100); Magnesium 1.8 mg/dl (1.6-2.3); Total Protein,Serum 5.9 g/dl (6.3-8.2)
[2024-05-08 08:00] VITALS: BP 175/80; PULSE 78; RESP 20; TEMP 37.1; O2SAT 93
--- NOTE | 2024-05-08 09:39 | P.PN_ITS ---
Subjective *Date: 05/08/24 *Time: 11:52 Interval history: No acute respiratory vents overnight. Patient admits continued improvement in his respiratory symptoms Pulmonology Exam Inpatient Vital signs and Labs for Last 24 Hours: Temp Pulse Resp BP Pulse Ox O2 Del Method O2 Flow Rate 98.7 F 78 20 175/80 H 93 L Nasal Cannula 2 05/08/24 08:00 05/08/24 08:00 05/08/24 08:00 05/08/24 08:00 05/08/24 08:00 05/08/24 08:00 05/08/24 08:00 FiO2 28 05/07/24 20:27 Laboratory Results - last 24 hr 05/05/24 17:44: MRSA (PCR) Negative 05/07/24 11:12: POC Glucose 238 H 05/07/24 20:20: POC Glucose 273 H 05/08/24 05:37: POC Glucose 168 H 05/08/24 05:50: WBC 8.9, RBC 5.37, Hgb 15.0, Hct 47.0, MCV 87.5, MCH 27.9, MCHC 31.9, RDW 14.6, Plt Count 268, MPV 10.1, Neut % (Auto) 82.5 H, Lymph % (Auto) 9.7 L, [place] % (Auto) 7.0, Eos % (Auto) 0.0 L, Baso % (Auto) 0.1, Neut # (Auto) 7.3, Lymph # (Auto) 0.9, [place] # (Auto) 0.6, Eos # (Auto) 0.0, Baso # (Auto) 0.0, Sodium 132 L, Potassium 4.2, Chloride 96 L, Carbon Dioxide 32 H, Anion Gap 8.2, BUN 25 H, Creatinine 0.60 L, Estimated Creat Clear 216, Estimated GFR 139, Est GFR ( Amer) 169, Glucose 196 H, Calcium 7.9 L, Magnesium 1.8 D, Total Bilirubin 0.1 L, AST 36, ALT 29, Alkaline Phosphatase 85, Total Protein 5.9 L, Albumin 3.3 L D, Globulin 2.6, Albumin/Globulin Ratio 1.3 Temp Pulse Resp BP Pulse Ox O2 Del Method O2 Flow Rate 99.4 F 81 20 149/67 H 93 L Vapotherm 30 05/06/24 08:00 05/06/24 08:00 05/06/24 08:00 05/06/24 08:00 05/06/24 08:00 05/06/24 09:00 05/06/24 09:00 FiO2 70 05/06/24 08:00 Laboratory Results - last 24 hr 05/05/24 13:43: HIV Ag/Ab Combo Qual Negative 05/05/24 13:44: WBC 15.2 H, RBC 5.47, Hgb 15.1, Hct 46.7, MCV 85.4, MCH 27.6, MCHC 32.3, RDW 14.3, Plt Count 240, MPV 9.8, Neut % (Auto) 90.7 H, Lymph % (Auto) 3.4 L, [place] % (Auto) 3.4, Eos % (Auto) 0.0 L, Baso % (Auto) 0.3, Neut # (Auto) 13.8 H, Lymph # (Auto) 0.5 L, [place] # (Auto) 0.5, Eos # (Auto) 0.0, Baso # (Auto) 0.1, Total Counted 100, Neutrophils % (Manual) 93 H, Band Neutrophils % 1.0, Lymphocytes % (Manual) 3 L, Monocytes % (Manual) 3, Platelet Estimate Normal, RBC Morphology Normal, Sodium 135 L, Potassium 4.0, Chloride 95 L, Carbon Dioxide 34 H, Anion Gap 10.0, BUN 12, Creatinine 0.50 L, Estimated Creat Clear 254, Estimated GFR 172, Est GFR ( Amer) 208, Glucose 209 H, Calcium 8.6, Magnesium 1.4 L, Total Bilirubin 0.3, AST 40, ALT 24, Alkaline Phosphatase 113, Troponin I 0.02, NT-Pro-B Natriuret Pep 1690 H, Total Protein 7.3, Albumin 3.9, Globulin 3.4 H, Albumin/Globulin Ratio 1.1, HCV Ab VINH w/Rflx PCR Qn Negative 05/05/24 13:48: SARS-CoV-2 (PCR) Not detected, Influenza A Untype (PCR) Detected A, Influenza Type B (PCR) Not detected 05/05/24 13:53: VBG pH 7.36, VBG pCO2 56.0 H, VBG pO2 36.7, VBG HCO3 30.6 H, VBG Total CO2 32.3 H, VBG O2 Saturation 73.2 H, VBG Base Excess 5.0 H, VBG Lactic Acid 1.4 05/05/24 13:58: Chlamy pneumoniae PCR Not detected, Adenovirus (PCR) Not detected, B. pertussis DNA (PCR) Not detected, Coronavirus OC43 (PCR) Not detected, Coronavirus HKU1 (PCR) Not detected, Coronavirus 229E (PCR) Not detected, SARS-CoV-2 (PCR) Not detected, Coronavirus NL63 (PCR) Not detected, Human Metapneumovir PCR Not detected, Influenza A (H1) PCR Not detected, Influ A (H1N1/) PCR Detected A, Influenza A (H3) PCR Not detected, Influenza Type A (PCR) Not detected, Influenza Type B (PCR) Not detected, M. pneumoniae (PCR) Not detected, Parainfluenza 1 (PCR) Not detected, Parainfluenza 2 (PCR) Not detected, Parainfluenza 3 (PCR) Not detected, Parainfluenza 4 (PCR) Not detected, RSV (PCR) Not detected, Entero/Rhino (PCR) Not detected 05/05/24 18:05: Troponin I 0.02 05/05/24 19:31: Urine Opiates Screen Negative, Urine Methadone Screen Positive H , Ur Barbituates Screen Negative, Ur Phencyclidine Scrn Negative, Ur Amphetamines Screen Negative, U Benzodiazepines Scrn Positive H, Urine Cocaine Screen Negative, U Marijuana (THC) Screen Positive H 05/05/24 19:43: VBG pH 7.39, VBG pCO2 45.6, VBG pO2 76.5 H, VBG HCO3 27.0, VBG Total CO2 28.4 H, VBG O2 Saturation 95.8 H, VBG Base Excess 2.0, VBG Lactic Acid 0.7 05/05/24 19:55: Troponin I 0.02 05/05/24 20:19: POC Glucose 149 H 05/05/24 20:30: D-Dimer 0.62 H 05/05/24 21:30: Ammonia 21 05/05/24 22:29: POC Glucose 151 H 05/05/24 23:10: Mycoplasma pneumon IgM Reactive A 05/06/24 00:50: VBG pH 7.38, VBG pCO2 52.2 H, VBG pO2 74.7 H, VBG HCO3 30.3 H, VBG Total CO2 31.9 H, VBG O2 Saturation 96.0 H, VBG Base Excess 5.1 H, VBG Lactic Acid 0.8 05/06/24 05:37: WBC 13.5 H, RBC 5.38, Hgb 14.7, Hct 46.2, MCV 85.9, MCH 27.3, MCHC 31.8, RDW 14.7, Plt Count 267, MPV 10.2, Neut % (Auto) 92.5 H, Lymph % (Auto) 3.2 L, [place] % (Auto) 3.1, Eos % (Auto) 0.0 L, Baso % (Auto) 0.2, Neut # (Auto) 12.5 H, Lymph # (Auto) 0.4 L, [place] # (Auto) 0.4, Eos # (Auto) 0.0, Baso # (Auto) 0.0, Total Counted 100, Neutrophils % (Manual) 96 H, Lymphocytes % (Manual) 3 L, Monocytes % (Manual) 1 L, Platelet Estimate Normal, RBC Morphology Normal, ESR 25 H, Sodium 134 L, Potassium 4.0, Chloride 97 L, Carbon Dioxide 30, Anion Gap 11.0, BUN 15, Creatinine 0.60 L, Estimated Creat Clear 219, Estimated GFR 139, Est GFR ( Amer) 169, Glucose 250 H, Hemoglobin A1c 7.2 H, Calcium 7.8 L, Magnesium 2.3 D, Total Bilirubin 0.1 L, AST 34, ALT 22, Alkaline Phosphatase 86, C-Reactive Protein 46.4 H, Total Protein 6.2 L, Albumin 3.2 L D, Globulin 3.0, Albumin/Globulin Ratio 1.1, Procalcitonin 1.19 05/06/24 06:32: POC Glucose 208 H I & O for Labs for Last 24 Hours: Intake & Output 05/05/24 05/06/24 05/07/24 05/08/24 23:59 23:59 23:59 23:59 Intake Total 1110 / 1110 840 / 840 240 / 240 Output Total 300 / 300 1170 / 1420 400 / 400 1000 / 1000 Balance -300 / 50 -60 / -310 440 / 440 -760 / -760 Weight 248 lb 3.2 oz 248 lb 3.213 oz 246 lb 14.684 oz 245 lb Intake & Output 05/03/24 05/04/24 05/05/24 05/06/24 23:59 23:59 23:59 23:59 Intake Total 720 / 720 Output Total 300 / 300 450 / 450 Balance -300 / 50 270 / 270 Weight 248 lb 3.2 oz 248 lb 3.213 oz Microbiology Reports for the Last 24 Hours: Microbiology 05/05/24 13:53 Blood Blood Culture - Preliminary NO GROWTH AFTER 48 HOURS 05/05/24 13:44 Blood Blood Culture - Preliminary NO GROWTH AFTER 48 HOURS Constitutional: Present severe distress Head: Present normocephalic and atraumatic ENT: Present normal exam, normal oropharynx and mucous membranes moist Neck: Present normal inspection and full ROM Respiratory: Present respiratory distress and able to speak in complete sentences; Absent rhonchi or wheezes Cardiac: Present S1/S2, Tachycardia and radial pulses present GI: Present soft and distention; Absent tenderness or guarding Skin: Absent intact, cyanosis or jaundice Comment:: LE ulcers and bilateral swelling Rt > lt Neuro: Present alert, awake and oriented x 3 Extremities: Present normal inspection; Absent clubbing or cyanosis Psychiatric: Present normal affect and cooperative Assessment and Plan *Assessment and plan (1) Acute respiratory failure with hypoxia: Status: Acute Category: Medical Code(s): J96.01 - Acute respiratory failure with hypoxia (2) H1N1 influenza with pneumonia: Status: Acute Category: Medical Code(s): J10.00 - Influenza due to other identified influenza virus with unspecified type of pneumonia (3) Mycoplasma pneumonia: Status: Acute Category: Medical Code(s): J15.7 - Pneumonia due to Mycoplasma pneumoniae Plan Ms. Poon is a 58-year-old male with reported history of CVA dyslipidemia hypertension tobacco abuse diabetes mellitus seizures COPD presented to the ER with worsening respiratory symptoms and pulmonary was called for further evaluation and management. Current smoker greater than [id number] smoking history. Not using any inhalers or oxygen at baseline. Resp PCR positive for H1N1 and Mycoplasma Pneumoniae. Venous blood gas upon admission chronic hypercarbic respiratory failure. On Levoflaxacin and Neb treatments. CTA PE protocol suboptimal, no obvious evidence of pulmonary embolism. Bilateral lower lobe airspace disease right > left On initial examination severe respiratory distress. On high flow nasal cannula 30 L 70%, weaned to 30 L 50%. Admits lower extremity venous Doppler negative recently 1 week ago at an outside hospital. Repeat lower extremity venous Doppler on this admission negative for DVT Interval update: Improving oxygen requirements. Improving leukocytosis. Plan: Continue levofloxacin for total of 7 days Continue nasal cannula oxygen supplementation to maintain O2 saturation goal of 90% and above Trelegy 100 inhaler along with DuoNebs 4 times daily as needed Continue Tamiflu x 5 days # # Thank you for involving pulmonary in this patient care will follow patient in pulmonary clinic 1 to 2 weeks postdischarge. Patient also noted to have significant nocturnal desaturations. He will be discharged home on oxygen supplementation. He will pursue clinical evaluation and the need for outpatient polysomnography testing.
[2024-05-08] MEDS: CITALOPRAM 40MG TABLET 40 MG PO (09:59)
[2024-05-08] MEDS: LABETALOL 100MG TABLET 100 MG PO (09:59)
[2024-05-08] MEDS: LISINOPRIL 20MG TABLET 40 MG PO (09:59)
[2024-05-08] MEDS: levoFLOXacin 750 MG TABLET PO (09:59)
[2024-05-08] MEDS: OSELTAMIVIR 75MG CAPSULE 75 MG PO (09:59)
[2024-05-08] MEDS: AMLODIPINE 10MG TABLET 10 MG PO (10:00)
[2024-05-08] MEDS: FINASTERIDE 5MG TABLET 5 MG PO (10:00)
[2024-05-08] MEDS: PRO-STAT AWC 30ML LIQUID PACKET 30 ML PO (10:00)
[2024-05-08] MEDS: ENOXAPARIN 40MG/0.4ML SYRINGE 40 MG SUBCUT (10:00)
--- NOTE | 2024-05-08 11:47 | P.DS_ITS ---
General Admission date:: 05/05/24 Discharge date: 05/08/24 HPI HPI HPI: The patient is a 58-year-old male with a past medical history significant for cerebrovascular accident, anxiety, hyperlipidemia, chronic pain, hypertension, tobacco use, diabetes mellitus, seizures, obesity, right bundle branch block, and COPD. He presented to the emergency department with worsening respiratory symptoms. On arrival, he was hemodynamically stable, afebrile, and his initial physical exam showed increased work of breathing but no focal neurologic deficits. Laboratory results revealed leukocytosis (WBC 15.2 with 90.7% neutr ophils), hypercapnia on VBG (pCO? 56, HCO? 30.6), and hypomagnesemia (1.4 mEq/L), which was replaced intravenously. Chest X-ray showed bilateral lower lobe opacities concerning for pneumonia, and he was started on intravenous ceftriaxone (Rocephin) and azithromycin. His oxygen requirement initially was 5 L nasal cannula but could be weaned to 2 L to maintain saturations above 92%. Mother at bedside's assist with repor. Toxicology screen shows presence of cannabinoids, benzodiazepines as well as methadone which patient takes for chronic pain. He is also a 2-3 pack-a-day smoker. Despite initial improvement, he decompensated after admission to the medical- surgical floor, developing tachypnea (RR ~45/min) and hypoxia (SpO? 88%) on higher-flow oxygen devices. He became obtunded with difficult arousal. A nonrebreather mask and subsequent Vapotherm failed to correct his increased work of breathing. He was given Solu-Medrol 125 mg IV, furosemide 40 mg IV, and transferred to the ICU for BiPAP support. D-dimer was 0.65, prompting a CT angiogram of the chest, which did not show a large pulmonary embolus but suggested a prcax-am-nekzuizg left lung consolidation consistent with possible aspiration. A mycoplasma test returned reactive. He is now receiving ICU-level care for acute respiratory failure secondary to bilateral pneumonia (influenza A positive, with likely mycoplasma involvement) and possible aspiration. VBG shows pH of 7.38 pCO2 of 52.2 and a pO2 of 74.7, lactic 0.8. Despite unimpressive gas,work of breathing remains extremely high patient obtunded, intubation has not been ruled out at this time. Hospital Course Hospital Course Hospital Course: Temo Poon is a 58-year-old male who was admitted for acute hypoxic respiratory failure. Found to have flu and mycoplasma. Pulmonology consulted and assisting with care. Showed significant improvement in respiratory failure, able to wean to room air by day of discharge. O2 sats greater 90%. White count normalized. Overall doing well. Will complete antibiotics and Tamiflu as an outpatient. Follow with pulmonology after discharge. Stable to discharge home. Problems addressed as follows: #Acute hypoxic respiratory failure #Acute COPD exacerbation #Influenza A, mycoplasma #Community-acquired versus aspiration pneumonia #Sepsis ? CTA reveals significant right lower lobe pneumonia. Concerning for aspiration, patient endorses that he may have passed out a few days ago. Initiated on broad-spectrum antibiotics and Tamiflu. Pulmonology consulted to assist with care. White count normalized. Blood gases showed stabilization. Weaned off of BiPAP to room air by the time of discharge. Overall doing well. Complete Tamiflu x 5 days and Levaquin. Patient does have a history of sleep apnea, CPAP does not work at home apparently. Did not meet criteria for BiPAP. Needs further workup as an outpatient sleep study to evaluate for resumption of CPAP. #Polypharmacy #Former opioid use disorder ? Patient takes methadone, Xanax and uses THC. Okay to resume home regimen at discharge. Concern for polypharmacy and risk for aspiration pneumonia. Needs review of medications with his primary care and consider de-escalation of medications in the outpatient setting. #Diabetes: Hemoglobin A1c 7.2% [facility] glucose checks during admission. Resume home diabetes regimen with Novolin at discharge. Exam Data for Last 24 hours Vital signs and Labs for Last 24 Hours: Temp Pulse Resp BP Pulse Ox O2 Del Method O2 Flow Rate 98.7 F 78 20 175/80 H 93 L Nasal Cannula 2 05/08/24 08:00 05/08/24 08:00 05/08/24 08:00 05/08/24 08:00 05/08/24 08:00 05/08/24 08:00 05/08/24 08:00 FiO2 28 05/07/24 20:27 Laboratory Results - last 24 hr 05/05/24 17:44: MRSA (PCR) Negative 05/07/24 20:20: POC Glucose 273 H 05/08/24 05:37: POC Glucose 168 H 05/08/24 05:50: WBC 8.9, RBC 5.37, Hgb 15.0, Hct 47.0, MCV 87.5, MCH 27.9, MCHC 31.9, RDW 14.6, Plt Count 268, MPV 10.1, Neut % (Auto) 82.5 H, Lymph % (Auto) 9.7 L, Nobles % (Auto) 7.0, Eos % (Auto) 0.0 L, Baso % (Auto) 0.1, Neut # (Auto) 7.3, Lymph # (Auto) 0.9, Nobles # (Auto) 0.6, Eos # (Auto) 0.0, Baso # (Auto) 0.0, Sodium 132 L, Potassium 4.2, Chloride 96 L, Carbon Dioxide 32 H, Anion Gap 8.2, BUN 25 H, Creatinine 0.60 L, Estimated Creat Clear 216, Estimated GFR 139, Est GFR ( Amer) 169, Glucose 196 H, Calcium 7.9 L, Magnesium 1.8 D, Total Bilirubin 0.1 L, AST 36, ALT 29, Alkaline Phosphatase 85, Total Protein 5.9 L, Albumin 3.3 L D, Globulin 2.6, Albumin/Globulin Ratio 1.3 I & O for Last 24 hours: Intake & Output 05/05/24 05/06/24 05/07/24 05/08/24 23:59 23:59 23:59 23:59 Intake Total 1110 / 1110 840 / 840 240 / 240 Output Total 300 / 300 1170 / 1420 400 / 400 1000 / 1000 Balance -300 / 50 -60 / -310 440 / 440 -760 / -760 Weight 112.582 kg 112.582 kg 112 kg 111.13 kg Microbiology Reports for the Last 24 Hours: Microbiology 05/06/24 01:54 Sputum - Expectorated Sputum Gram Stain - Final 05/06/24 01:54 Sputum - Expectorated Sputum Sputum Culture - Final 05/05/24 13:53 Blood Blood Culture - Preliminary NO GROWTH AFTER 48 HOURS 05/05/24 13:44 Blood Blood Culture - Preliminary NO GROWTH AFTER 48 HOURS Constitutional Constitutional: no acute distress, obese and cooperative *Routine HEENT Exam Head: Present normocephalic Eye: Present EOMI and PERRL ENT: Present mucous membranes moist *Routine Neck Exam Neck: Present supple; Absent lymphadenopathy *Routine Respiratory Exam Respiratory: Present wheezes and crackles; Absent CTA bilaterally or rhonchi *Routine Cardiovascular Exam Cardiovascular: Present RRR *Routine Abdominal Exam Abdominal: Present soft and normoactive bowel sounds; Absent tenderness *Routine Rectal Exam Patient deferred: visual exam *Routine Exam Patient deferred: penile exam *Routine Extremities Exam Extremities: Absent cyanosis, clubbing or edema *Routine Skin Exam Skin: Present warm; Absent rash *Routine Neurological Exam Neurological: Present alert, oriented X3 and moving all extremities; Absent altered mental status Results Data Completed and Pending Labs on day of discharge: Labs from last 24 hours 05/08/24 05/08/24 05/07/24 05:50 05:37 20:20 WBC 8.9 RBC 5.37 Hgb 15.0 Hct 47.0 MCV 87.5 MCH 27.9 MCHC 31.9 RDW 14.6 Plt Count 268 MPV 10.1 Neut % (Auto) 82.5 H Lymph % (Auto) 9.7 L Nobles % (Auto) 7.0 Eos % (Auto) 0.0 L Baso % (Auto) 0.1 Neut # (Auto) 7.3 Lymph # (Auto) 0.9 Nobles # (Auto) 0.6 Eos # (Auto) 0.0 Baso # (Auto) 0.0 Sodium 132 L Potassium 4.2 Chloride 96 L Carbon Dioxide 32 H Anion Gap 8.2 BUN 25 H Creatinine 0.60 L Estimated Creat Clear 216 Estimated GFR 139 Est GFR ( Amer) 169 Glucose 196 H POC Glucose 168 H 273 H Calcium 7.9 L Magnesium 1.8 D Total Bilirubin 0.1 L AST 36 ALT 29 Alkaline Phosphatase 85 Total Protein 5.9 L Albumin 3.3 L D Globulin 2.6 Albumin/Globulin Ratio 1.3 MRSA (PCR) 05/05/24 17:44 WBC RBC Hgb Hct MCV MCH MCHC RDW Plt Count MPV Neut % (Auto) Lymph % (Auto) Nobles % (Auto) Eos % (Auto) Baso % (Auto) Neut # (Auto) Lymph # (Auto) Nobles # (Auto) Eos # (Auto) Baso # (Auto) Sodium Potassium Chloride Carbon Dioxide Anion Gap BUN Creatinine Estimated Creat Clear Estimated GFR Est GFR ( Amer) Glucose POC Glucose Calcium Magnesium Total Bilirubin AST ALT Alkaline Phosphatase Total Protein Albumin Globulin Albumin/Globulin Ratio MRSA (PCR) Negative Preliminary micro results at discharge 05/05/24 13:53 Blood Culture - Preliminary Blood NO GROWTH AFTER 48 HOURS 05/05/24 13:44 Blood Culture - Preliminary Blood NO GROWTH AFTER 48 HOURS DS: Diagnosis Discharge Diagnosis (1) Acute respiratory failure with hypoxia: Status: Acute Code(s): J96.01 - Acute respiratory failure with hypoxia (2) H1N1 influenza with pneumonia: Status: Acute Code(s): J10.00 - Influenza due to other identified influenza virus with unspecified type of pneumonia (3) Mycoplasma pneumonia: Status: Acute Code(s): J15.7 - Pneumonia due to Mycoplasma pneumoniae Meds Home Medications and Allergies Home Medications ?Medication ?Instructions ?Recorded ?Confirmed ?Type alprazolam 1 mg tablet 1 mg PO BIDP PRN Anxiety 15 days 10/12/17 05/05/24 History amlodipine 10 mg tablet 10 mg PO DAILY 30 days 10/12/17 05/05/24 History dutasteride 0.5 mg capsule 0.5 mg PO DAILY 30 days 10/12/17 05/06/24 History gabapentin 300 mg capsule 300 mg PO TID 30 days 10/12/17 05/06/24 History labetalol 100 mg tablet 100 mg PO BID 30 days 10/12/17 05/05/24 History lisinopril 40 mg tablet 40 mg PO DAILY 30 days 10/12/17 05/05/24 History methadone 10 mg tablet 20 mg PO Q6H 30 days 10/12/17 05/06/24 History albuterol sulfate 90 mcg/actuation 2 puffs IH Q4HP PRN Shortness Of 03/07/19 05/05/24 History aerosol inhaler Breath Or Wheezing escitalopram oxalate 20 mg tablet 20 mg PO DAILY 05/05/24 05/05/24 History insulin NPH-regular 70-30 U-100 30 unit SQ BID 05/06/24 05/06/24 History insulin 100 unit/mL subcutaneous pen (Novolin 70-30 FlexPen U-100 Insulin) fluticasone fur. 100 mcg-umeclid 1 inh inhalation DAILY 30 days #60 05/08/24 Rx 62.5 mcg-vilant 25 mcg ea inhalat.powder (Trelegy Ellipta) ipratropium 0.5 mg-albuterol 3 mg 3 ml inhalation Q6HP PRN Shortness 05/08/24 Rx (2.5 mg base)/3 mL nebulization Of Breath Or Wheezing #180 mL soln levofloxacin 750 mg tablet 750 mg PO 1100 2 days #2 tabs 05/08/24 Rx oseltamivir 75 mg capsule (Tamiflu) 75 mg PO BID 2 days #3 caps 05/08/24 Rx New Prescriptions to Start Prescriptions: yhvaxferhts-nakjnjucw-iloisjbk [Trelegy Ellipta] Fernando Mauricio ipratropium-albuterol Hang,Fernando levofloxacin Hang,Fernando oseltamivir [Tamiflu] Hang,Fernando Allergies Allergy/AdvReac Type Severity Reaction Status Date / Time butorphanol (From STADOL) Allergy Unknown UNKNOWN Verified 05/05/24 17:47 ketorolac (From TORADOL) Allergy Unknown UNKNOWN Verified 05/05/24 17:47 morphine (MORPHINE) AdvReac Unknown hiccups Verified 05/05/24 17:47 Discharge Plan Disposition Patient Disposition: Home, Self-Care Condition: Fair Discharge Order Discharge Orders: Discharge Order (Routine); Ordered 05/08/24 Ordered By: Fernando Mauricio Follow up Plan Follow up with: Bhaskar Rivera MD [Physician] - 06/05/24 1:00 pm Augustus Patton MD [Referring] - 05/13/24 11:15 am Prescriptions/Medication Reconciliation: New Trelegy Ellipta 100-62.5-25 mcg Blister With Device 1 inh inhalation DAILY 30 Days Qty: 60 0RF oseltamivir [Tamiflu] 75 mg Capsule 75 mg PO BID 2 Days Qty: 3 0RF levofloxacin 750 mg Tablet 750 mg PO 1100 2 Days Qty: 2 0RF ipratropium-albuterol 0.5 mg-3 mg(2.5 mg base)/3 mL Solution For Nebulization 3 ml inhalation Q6HP PRN (Reason: Shortness Of Breath Or Wheezing) Qty: 180 0RF Continued methadone 10 mg tablet 20 mg PO Q6H 30 Days lisinopril 40 mg tablet 40 mg PO DAILY 30 Days labetalol 100 mg tablet 100 mg PO BID 30 Days amlodipine 10 mg tablet 10 mg PO DAILY 30 Days gabapentin 300 mg capsule 300 mg PO TID 30 Days alprazolam 1 mg tablet 1 mg PO BIDP PRN (Reason: Anxiety) 15 Days dutasteride 0.5 mg capsule 0.5 mg PO DAILY 30 Days albuterol sulfate 18 GM HFA aerosol inhaler 2 puffs IH Q4HP PRN (Reason: Shortness Of Breath Or Wheezing) escitalopram oxalate 20 mg tablet 20 mg PO DAILY Novolin 70-30 FlexPen U-100 100 unit/mL (70-30) insulin pen 30 unit SQ BID Problem Reconciliation Problems Reviewed?: Yes Patient Discharge Instructions ACTIVITY: Continue current activity DIET: continue same diet Patient Instructions: Pneumonia--Adult, DI for Chronic Obstructive Pulmonary Disease, DI for Influenza -- Adult, DI for Shortness of Breath, DI for Hypoxia, NCM Pressure Injury Diet Print Language: Tamazight Providers Primary Care Provider: Provider,Referral Admit Provider: Catarino Ortiz Attending Provider: Catarino Ortiz
[2024-05-08 12:00] VITALS: BP 150/85; PULSE 70; RESP 20; TEMP 36.7; O2SAT 92
[2024-05-08 12:22] LABS: POC Glucose,Bedside 289 (70-110)
[2024-05-08] MEDS: humaLOG 100 UNITS/ML 10ML VIAL (SSI) SUBCUT (12:33)
--- NOTE | 2024-05-08 13:36 | PC.NURSE ---
pts room air sat is 92% while at rest
--- NOTE | 2024-05-09 10:31 | SW/DCPLANNER ---
Spoke with patient on the phone. Patient stated that he is doing very well. Patient stated that he is aware of his upcoming appointments. Patient stated that he was able to get his medicine picked up from clinic pharmacy. Patient stated that he has no concerns or questions at this time. Morris Huber
== END 2024-05-08 13:59 | disposition home or self-care (01) | DRG 193 ==
LOC: ER 15:46 → 2ND 16:42 → ICU 05-06 00:57 → 2ND 05-06 07:45
PROVIDERS: Nurse Practitioner; Nurse Practitioner Family; Admitting Provider Student in an Organized Health Care Education/Training Program; Emergency Provider Emergency Medicine; Visit Provider Student in an Organized Health Care Education/Training Program
DX: J10.08 Influenza due to other identified influenza virus with other specified pneumonia (principal); A41.9 Sepsis, unspecified organism; J96.01 Acute respiratory failure with hypoxia; J15.7 Pneumonia due to Mycoplasma pneumoniae; I45.10 Unspecified right bundle-branch block; E78.5 Hyperlipidemia, unspecified; E66.9 Obesity, unspecified; F17.210 Nicotine dependence, cigarettes, uncomplicated; I10 Essential (primary) hypertension; E11.9 Type 2 diabetes mellitus without complications; J44.1 Chronic obstructive pulmonary disease with (acute) exacerbation; F41.9 Anxiety disorder, unspecified; F11.21 Opioid dependence, in remission; Z79.4 Long term (current) use of insulin; Z86.73 Personal history of transient ischemic attack (TIA), and cerebral infarction without residual deficits; Z88.6 Allergy status to analgesic agent; Z79.899 Other long term (current) drug therapy; Z68.33 Body mass index [BMI] 33.0-33.9, adult; Z88.5 Allergy status to narcotic agent
CPT/HCPCS: 36415; 71045; 71275; 80053; 80307; 82140; 82803; 82962; 83036; 83735; 83880; 84145; 84484; 85007; 85025; 85378; 85651; 86140; 86738; 86803; 87040; 87070; 87205; 87389; 87633; 87636; 87641; 93005; 93306; 93970; 94640; 94660; 94760; 94761; 99285; J0360; J0456; J0696; J1650; J1940; J1956; J2060; J2543; J2919; J3475; J7050; J7620; Q9967

== ENCOUNTER 2024-12-28 22:40 | Emergency (ER) | payer MEDICARE, SELFPAY ==
--- OUTSIDE RECORDS SUMMARY | 2024-11-28 13:45 | XMS_ITS | Encounter Summary ---
Author Organization [facility] Address [address] [id number] Care Team Providers Care [employer] Name Role Phone Augustus Patton MD Primary Care Provider + Reason for Visit * Reason Comments Follow-up Diabetes Encounter Details Date Type Department Care Team (Latest Contact Info) Description 11/28/2024 1:45 PM EDT Office Visit [facility] [address] [place] [address] Augustus Patton MD [address] [place] [address] Type 2 diabetes mellitus with hyperglycemia, with long-term current use of insulin (Primary Dx); Occipital stroke; Impaired mobility; Colon cancer screening; Need for prophylactic vaccination against Streptococcus pneumoniae (pneumococcus); Essential hypertension Social History Tobacco Use Types Packs/Day Years Used Date Smoking Tobacco: Former Cigarettes 2 30 0 06/15/1992 - 06/15/2022 Smokeless Tobacco: Never Alcohol Use Standard Drinks/Week Comments Defer 0 (1 standard drink = 0.6 oz pur e alcohol) PHQ-2 Answer Date Recorded Retired PHQ-9: Brief Depression Severity Measure Score 0 01/30/2023 PHQ-2 Answer Date Recorded Patient Health Questionnaire-2 Score 0 05/02/2024 Sex and Gender Information Value Date Recorded Sex Assigned at Not on file Legal Sex Male 1:39 PM EDT Gender Identity Not on file Sexual Orientation Not on file documented as of this encounter Last Filed Vital Signs Vital Sign Reading Time Taken Comments Blood Pressure 145/78 11/28/2024 1:47 PM EDT Pulse 72 11/28/2024 1:47 PM EDT Temperature 36.6 C (97.9 F) 11/28/2024 1:47 PM EDT Respiratory Rate 20 11/28/2024 1:47 PM EDT Oxygen Saturation 95% 11/28/2024 1:47 PM EDT Inhaled Oxygen Concentration - - Weight 119 kg (261 lb 6.4 oz) 11/28/2024 1:47 PM EDT Height 182.9 cm (6') 11/28/2024 1:47 PM EDT Body Mass Index 35.45 11/28/2024 1:47 PM EDT documented in this encounter Progress Notes * Augustus Patton MD - 11/28/2024 2:49 PM EDTAssociated Problem(s): Essential hypertension Hypertension is stable and controlled Continue current treatment regimen. Blood pressure will be reassessed in 6 months. * Augustus Patton MD - 11/28/2024 2:49 PM EDTAssociated Problem(s): Occipital stroke Patient was provided documentation of his diagnosis and a written prescription which has been scanned into the chart for an adjustable bed due to persistence of impaired mobility related to CVA * Augustus Patton MD - 11/28/2024 2:49 PM EDTAssociated Problem(s): Type 2 diabetes mellitus with hyperglycemia, with long-term current use of insulin Diabetes is stable. Continue current treatment regimen. Diabetes will be reassessed in 3 months * Augustus Patton MD - 11/28/2024 1:45 PM EDT Images from the original note were not included. Chief Complaint Patient presents with Follow-up Diabetes Subjective Temo Poon is a 58 y.o. who presents for chronic care. He brings in a few blood sugars withfasting glucose between 120 and 141. Blood pressures are in the 130s over 70s. Patient remains off cigarettes. He has begun to exchange his Mountain Dew for sweet tea although is using less sugar overall. He is battling a right knee wound which is chronic and recurring in nature. Patient sees [facility]. He has completed his eye therapy after his occipital stroke. The following portions of the patient's history were reviewed and updated as appropriate: allergies, current medications, past family history, past medical history, past social history, past surgicalhistory, and problem list. Review of Systems Objective Vital Signs: BP 145/78 Pulse 72 Temp 97.9 ??F (36.6 ??C) Resp 20 Ht 182.9 cm (72 ) Wt 119 kg (261 lb 6.4 oz) SpO2 95% BMI 35.45 kg/m?? Physical Exam Constitutional: Appearance: Normal appearance. HENT: Head: Normocephalic and atraumatic. Right Ear: Tympanic membrane and ear canal normal. Left Ear: Tympanic membrane and ear canal normal. Nose: Nose normal. Mouth/Throat: Mouth: Mucous membranes are moist. Pharynx: Oropharynx is clear. Eyes: Conjunctiva/sclera: Conjunctivae normal. Cardiovascular: Rate and Rhythm: Normal rate and regular rhythm. Heart sounds: Normal heart sounds. No murmur heard. Pulmonary: Effort: Pulmonary effort is normal. No respiratory distress. Breath sounds: Normal breath sounds. Comments: Breath sounds are distant but clear Musculoskeletal: Cervical back: Normal range of motion and neck supple. No tenderness. Lymphadenopathy: Cervical: No cervical adenopathy. Skin: General: Skin is warm and dry. Neurological: Mental Status: He is alert. Psychiatric: Mood and Affect: Mood normal. Result Review The following data was reviewed by: Augustus Patton MD on 11/28/2024: A1C Last 3 Results 02/01/2024 14:19 08/23/2024 14:31 11/28/2024 13:52 HGBA1C Last 3 Results Hemoglobin A1C 8.1 7.6 7.5 Assessment and Plan Diagnoses and all orders for this visit: 1. Type 2 diabetes mellitus with hyperglycemia, with long-term current use of insulin (Primary) Assessment & Plan: Diabetes is stable. Continue current treatment regimen. Diabetes will be reassessed in 3 months Orders: - POC Glycosylated Hemoglobin (Hb A1C) 2. Occipital stroke Assessment & Plan: Patient was provided documentation of his diagnosis and a written prescription which has been scanned into the chart for an adjustable bed due to persistence of impaired mobility related to CVA 3. Impaired mobility 4. Colon cancer screening - Cologuard - Stool, Per Rectum; Future 5. Need for prophylactic vaccination against Streptococcus pneumoniae (pneumococcus) - Pneumococcal Conjugate Vaccine 21 (18+ yrs) 6. Essential hypertension Assessment & Plan: Hypertension is stable and controlled Continue current treatment regimen. Blood pressure will be reassessed in 6 months. Other orders - LABS SCANNED - LABS SCANNED Follow Up Return in about 3 months (around 02/28/2025) for Next scheduled follow up. Patient was given instructions and counseling regarding his condition or for health maintenance advice. Please see specific information pulled into the AVS if appropriate. documented in this encounter Plan of Treatment Upcoming Encounters Date Type Department Care Team (Late st Contact Info) Description 03/04/2025 3:00 PM EST Office Visit [facility] [address] [place] [address] Augustus Patton MD [address] [place] [id number] Scheduled Orders Name Type Priority Associated Diagnoses Orde r Schedule Cologuard - Stool, Per Rectum Lab Routine Colon cancer screening Expected: 11/28/2024 (Approximate), Expires: 02/28/2026 documented as of this encounter Procedures Procedure Name Priority Date/Time Associated Diagnosis Comments POCT GLYCOSYLATED HEMOGLOBIN (HGB A1C) Routine 11/28/2024 1:52 PM EDT Type 2 diabetes mellitus with hyperglycemia, with long-term current use of insulin SCANNED - LABS 11/28/2024 SCANNED - LABS 11/28/2024 documented in this encounter Results * (ABNORMAL) POC Glycosylated Hemoglobin (Hb A1C) (11/28/2024 1:52 PM EDT) Hemoglobin A1C 7.5(A) 4.5 - 5.7 % [facility] Lot Number [id number] [facility] Expiration Date 07/23/2026 [facility] Blood 11/28/2024 1:52 PM EDT Augustus Patton MD POINT OF CARE TEST ORDER TRES Final Result [facility]
[address] [place] [address], * LABS SCANNED (11/28/2024) [facility] BLOOD ORDERABLES Final Re sult * LABS SCANNED (11/28/2024) [facility] BLOOD ORDERABLES Final Re sult documented in this encounter Visit Diagnoses Diagnosis Type 2 diabetes mellitus with hyperglycemia, with long-term current use of insulin- Primary Occipital stroke Unspecified cerebral artery occlusion with cerebral infarction Impaired mobility Other ill-defined conditions Colon cancer screening Special screening for malignant neoplasms, colon Need for prophylactic vaccination against Streptococcus pneumoniae (pneumococcus) Need for prophylactic vaccination against streptococcus pneumoniae (pneumococcus) Essential hypertension Unspecified essential hypertension documented in this encounter Care Teams [employer] Relationship Specialty Start Date End Date Augustus Patton MD [address] [place] [id number] PCP - General Family Medicine 07/29/21 documented as of this encounter
--- NOTE | 2024-12-28 22:37 | ECG_ITS ---
APPROVED REPORT Exam: Resting ECG HR:99 bpm ECG Measurements Heart Rate 99 AXES AL 175 P 57 QRSd 161 QRS 112 QT 419 T 53 QTc 475 Conclusion SINUS RHYTHM RIGHT BUNDLE BRANCH BLOCK [120+ ms QRS DURATION, UPRIGHT V1, 40+ ms S IN I/aVL/V4/V5/V6] LEFT POSTERIOR FASCICULAR BLOCK [QRS AXIS > 109, INFERIOR Q] POSSIBLE SEPTAL MYOCARDIAL INFARCTION , OF INDETERMINATE AGE [30 ms Q WAVE IN V1/V2] ABNORMAL ECG UNCONFIRMED REPORT Electronically signed by : JAMIE MARTINEZ, 12/30/2024 23:05:34
[2024-12-28 22:45] VITALS: BP 244/115; PULSE 105; RESP 20; TEMP 36.6; O2SAT 95; BMI 32.5
--- NOTE | 2024-12-28 22:45 | CT_ITS ---
PROCEDURE INFORMATION: Exam: CT Head Without Contrast Exam date and time: 12/28/2024 11:58 PM Age: 59 years old Clinical indication: Injury or trauma; Fall; Blunt trauma (contusions or hematomas) TECHNIQUE: Imaging protocol: Computed tomography of the head without contrast. Radiation optimization: All CT scans at this facility use at least one of these dose optimization techniques: automated exposure control; mA and/or kV adjustment per patient size (includes targeted exams where dose is matched to clinical indication); or iterative reconstruction. COMPARISON: MR HEAD/BRAIN WO/W CON 08/03/2023 12:46 PM FINDINGS: Brain: No acute intracranial hemorrhage. No abnormal extra-axial fluid collection. No midline shift or mass effect. No acute large territory infarct. Left occipital encephalomalacia consistent with sequelae of old infarct. Stable old lacunar infarct in the froylan. Cerebral ventricles: No ventriculomegaly. Paranasal sinuses: Visualized paranasal sinuses are clear. Mastoid air cells: Visualized mastoid air cells are clear. Bones: No acute fracture. Soft tissues: Unremarkable. IMPRESSION: No acute intracranial abnormality.
--- NOTE | 2024-12-28 22:45 | CT_ITS ---
PROCEDURE INFORMATION: Exam: CTA Chest With Contrast Exam date and time: 12/29/2024 12:20 AM Age: 59 years old Clinical indication: Pain and injury or trauma; Fall; Blunt trauma (contusions or hematomas); Chest pressure; Additional info: Chest pain TECHNIQUE: Imaging protocol: Computed tomographic angiography of the chest with contrast. Exam focused on the arteries. 3D rendering (Not supervised by radiologist): MIP and/or 3D reconstructed images were created by the technologist. Radiation optimization: All CT scans at this facility use at least one of these dose optimization techniques: automated exposure control; mA and/or kV adjustment per patient size (includes targeted exams where dose is matched to clinical indication); or iterative reconstruction. Contrast material: ISO 370; Contrast volume: 80 ml; Contrast route: INTRAVENOUS (IV); COMPARISON: CT ANGIO CHEST PE PROTOCOL 05/05/2024 9:46 PM FINDINGS: Pulmonary arteries: Normal. No pulmonary emboli. Aorta: Unremarkable. No aortic aneurysm. No aortic dissection. Lungs: Unremarkable. No consolidation. No masses. Pleural spaces: Unremarkable. No pneumothorax. No pleural effusion. Heart: Unremarkable. No cardiomegaly. No pericardial effusion. Lymph nodes: Unremarkable. No enlarged lymph nodes. Bones/joints: Unremarkable. No acute fracture. Soft tissues: Unremarkable. IMPRESSION: No acute findings.
--- NOTE | 2024-12-28 22:45 | CT_ITS ---
PROCEDURE INFORMATION: Exam: CTA Abdomen and Pelvis Without And With Contrast Exam date and time: 12/29/2024 12:20 AM Age: 59 years old Clinical indication: Abdominal pain; Generalized; Additional info: Abdominal pain after fall TECHNIQUE: Imaging protocol: Computed tomographic angiography of the abdomen and pelvis without and with contrast. Exam focused on the arteries. 3D rendering (Not supervised by radiologist): MIP and/or 3D reconstructed images were created by the technologist. Radiation optimization: All CT scans at this facility use at least one of these dose optimization techniques: automated exposure control; mA and/or kV adjustment per patient size (includes targeted exams where dose is matched to clinical indication); or iterative reconstruction. Contrast material: ISOVUE; Contrast volume: 75 ml; Contrast route: INTRAVENOUS (IV); COMPARISON: CT ANGIO CHEST PE PROTOCOL 05/05/2024 9:46 PM FINDINGS: Aorta: No aortic aneurysm. No aortic dissection. Celiac and mesenteric arteries: No occlusion or significant stenosis. Renal arteries: No occlusion or significant stenosis. Right iliac arteries: No occlusion or significant stenosis. Left iliac arteries: No occlusion or significant stenosis. Liver: Hepatomegaly Gallbladder and biliary ducts: Unremarkable. No calcified stones. No ductal dilation. Pancreas: Unremarkable. No mass. No ductal dilation. Spleen: Unremarkable Adrenal glands: Right adrenal adenoma 2.2 cm Kidneys and ureters: Unremarkable. No solid mass. No hydronephrosis. Stomach and bowel: Unremarkable. No obstruction. No mucosal thickening. Appendix: No evidence of appendicitis. Intraperitoneal space: Unremarkable. No free air. No significant fluid collection. Lymph nodes: Unremarkable. No enlarged lymph nodes. Urinary bladder: Distended urinary bladder with air-fluid level. Reproductive: Unremarkable as visualized. Bones/joints: Extensive thoracic spinal fusion producing streak artifact limiting study. Soft tissues: Atrophic right body musculature when compared to the left. IMPRESSION: Unremarkable CTA. No acute posttraumatic intra-abdominal or intrapelvic findings.
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
--- OUTSIDE RECORDS SUMMARY | 2024-12-28 22:47 | XMS_ITS | Clinical Summary ---
Author Organization [facility] Address [address] [place] [address] Phone Care Team Providers Care Floor Specialist Name Role Phone Claudia WAHL, Micheline Fields [ ] Conditions or Problems Problem Name Problem Code Onset Date Status Entry Date Provider Comment Standard Description Annotate Non-pressure chronic ulcer of other part of right foot with other specified severity 073941350 (SNOMED CT) 07/12 Active 07/12 Clarissa Xavi Chronic ulcer of foot Other specified local infections of skin and subcutaneous tissue 66390362 (SNOMED CT) 07/12 Active 07/12 Clarissa Xavi Infection of skin and/or subcutaneous tissue Chronic Osteomyeliti s, Right Ankle and Foot 692586016 (SNOMED CT) 07/04 Active 07/04 Clarissa Xavi Chronic osteomyelitis of ankle and/or foot Hypertension 90092866 (SNOMED CT) 07/04 Active 07/04 Micheline Taylor MD Hypertensive disorder COPD (chronic obstructive pulmonary disease) J44.9 (ICD-10-CM) 07/04 Active 07/04 Micheline Taylor MD Chronic obstructive pulmonary disease, unspecified Paraplegia, incomplete 41006968118 9106 (SNOMED CT) 07/04 Active 07/04 Micheline Taylor MD Incomplete paraplegia Diabetes mellitus, type II 37099527 (SNOMED CT) 07/04 Active 07/04 Micheline Taylor MD Type 2 diabetes mellitus Chronic osteomyeliti s, foot 766335547 (SNOMED CT) 07/04 Inactive 07/04 Micheline Taylor MD Chronic osteomyelitis of foot Medications Medication Instructions Start Date Stop Date Generic Name NDC Provider Invanz unspecified unspecified 1gm q 24hrs Kabafusion [phone]/LIDC Dose, labs, line care ertapenem [phone] [facility] DAPTOMYCIN 350 MG SOLR 500mg q 24hrs Kabafusion [phone]/LIDC Dose, labs, line care daptomycin [phone] [facility] Medications Administered No information available. Allergies, Adverse Reactions, Alerts No information available. Results Date Name Value Unit Range Flag Description Office Visit: [id number] CONTENT DIRECTOR MEDS REVIEW Done Documenta tion of current medications (procedure) SMOK STATUS Former smoker Tobacco smoking status Lab Report: CK CPK 57 U/L 20-200 Creatine archana se [Enzymatic activity/volume] in Serum or Plasma Lab Report: C-REACTIVE PROTE IN CRP 2.09 mg/dL 0.00-0.50 H C reactive protein [Mass/volume] in Serum or Plasma Lab Report: COMPREHENSIVE ME TABOLIC PANEL [id number] 117.1 mL/min/1.73 >60.0 GE use only - fo r LinkLogic import when terms are not otherwise specified ANIONGAP 14.0 mmol/L 5.0-15.0 anion gap, serum BUN/CREAT 12.5 7.0-25.0 Urea nitrogen/Creatinine [Mass Ratio] in Serum or Plasma BILI TOTAL 0.3 mg/dL 0.0-1.2 Bilirubin. total [Mass/volume] in Serum or Plasma ALK PHOS 129 U/L 39-117 H Alkaline janay sphatase [Enzymatic activity/volume] in Blood SGOT (AST) 19 U/L 1-40 Aspartate aminotransferase [Enzymatic activity/volume] in Serum or Plasma SGPT (ALT) 17 U/L 1-41 Alanine aminotransferase [Enzymatic activity/volume] in Serum or Plasma ALBUMIN 3.8 g/dL 3.5-5.2 Albumin [Mass /volume] in Serum or Plasma PROTEIN, TOT 7.6 g/dL 6.0-8.5 Protein [Mass/volume] in Serum or Plasma CALCIUM 9.0 mg/dL 8.6-10.5 Calcium [Moles/volume] in Serum or Plasma CO2 30.0 mmol/L 22.0-29.0 H Carbon diox griselda, total [Moles/volume] in Venous blood CHLORIDE 99 mmol/L 98-107 Chloride [Moles/volume] in Serum or Plasma POTASSIUM 4.1 mmol/L 3.5-5.2 Potassium [Moles/volume] in Serum or Plasma SODIUM 143 mmol/L 136-145 Sodium [Moles /volume] in Serum or Plasma CREATININE 0.56 mg/dL 0.76-1.27 L Creatini ne [Mass/volume] in Serum or Plasma BUN 7 mg/dL 6-20 Urea nitrogen [Mass/volume] in Serum or Plasma GLUCOSE SER 161 mg/dL 65-99 H Glucose [ Mass/volume] in Serum or Plasma Lab Report: Specimen Status, Comp. Metabolic Panel (14), Sedimentation R ... A/G RATIO 1.0 g/dL Albumin/Dania bulin [Mass Ratio] in Serum or Plasma GLOBULIN 3.8 Globulin [Mass/volume] in Serum Plan of Care Type Date Detail Pending order CBC with Differe ntial Pending order C- reactive prot ein Pending order CPK Pending order CMP Pending order PICC Line Insert ion Pending order PICC Line Insert ion Procedures Code Procedure Name Date Entry Date [id number] CBC with Differential 2022 CPT-81452 C- reactive protein [id number], [id number] CPK CPT-31499 CMP CPT-55401 PICC Line Insertion CPT-61465 PICC Line Insertion Vital Signs Date Name Value Unit Description BMI (Body Mass Index) 33.90 kg/m2 Bod y Mass Index (Ratio) Body Temperature 99.0 [degF] temperat ure E&M BP Diastolic 86 mm[Hg] blood pressu re, diastolic BP Systolic 180 mm[Hg] blood pressur e, systolic Heart Rate 63 /min pulse rate Height 72 [in_us] height E&M Respiratory Rate 18 /min respirat ory rate E&M Weight Measured 250 [lb_av] weight E& M Weight Measured 250 [lb_av] weight E& M Immunizations No information available. Advance Directives Directive Description Start Date HEALTHCARE SURROGATE POWER OF PAPER SALES MANAGER LIVING WILL ON FILE
--- OUTSIDE RECORDS SUMMARY | 2024-12-28 22:48 | XMS_ITS | Encounter Summary ---
Author Organization [facility] Address [address] [place] [address] Care Team Providers Care Registered Massage Therapist Name Role Phone Augustus Patton MD Primary Care Provider + Encounter Details Date Type Department Care Team (Late st Contact Info) Description 08/27/2024 Results Follow-Up [facility] [address] [place] [address] Augustus Patton MD [address] [place] [address] Social History Tobacco Use Types Packs/Day Years [...] on file documented as of this encounter Plan of Treatment Upcoming Encounters Date Type Department Care Team (Late Contact Info) Description 03/04/2025 3:00 PM EST Office Visit [facility] [address] [place] [address] Augustus Patton MD [address] [place] [address] documented as of this encounter Visit Diagnoses Not on filedocumented in this encounter Care Teams Registered Massage Therapist Relationship Specialty Start Date End Date Augustus Patton MD [address] [place] [address] PCP - General Family Medicine 07/29/21 documented as of this encounter
--- OUTSIDE RECORDS SUMMARY | 2024-12-28 22:48 | XMS_ITS | Encounter Summary ---
Author Organization [facility] Address [address] [id number] Care Team Providers Care Trench Trimmer Fine Name Role Phone Augustus Patton MD Primary Care Provider + Encounter Details Date Type Department Care Team (Latest Contact Info) Description 11/28/2024 Travel Social History Tobacco Use Types Packs/Day Years [...] Description 03/04/2025 3:00 PM EST Office Visit [facility] [address] [place] [address] Augustus Patton MD [address] [place] [address] documented as of this encounter Visit Diagnoses Not on filedocumented in this encounter Care Teams Trench Trimmer Fine Relationship Specialty Start Date End Date Augustus Patton MD [address] [place] [address] PCP - General Family Medicine 07/29/21 documented as of this encounter
--- OUTSIDE RECORDS SUMMARY | 2024-12-28 22:48 | XMS_ITS | Encounter Summary ---
Author Organization [facility] Address [address] [id number] Care Team Providers Care Rubber Heel And Sole Press Tender Name Role Phone Augustus Patton MD Primary Care Provider + Encounter Details Date Type Department Care Team (Late Contact Info) Description 12/23/2024 External PBMM Data [facility] CALL CENTER [address] [place] [phone] Pharmacy, Payor Data Social History Tobacco Use Types Packs/Day Years [...] Description 03/04/2025 3:00 PM EST Office Visit [facility] [address] [facility] [place] [address] Augustus Patton MD [address] [place] [address] documented as of this encounter Visit Diagnoses Not on filedocumented in this encounter Care Teams Rubber Heel And Sole Press Tender Relationship Specialty Start Date End Date Augustus Patton MD [address] [place] [address] PCP - General Family Medicine 07/29/21 documented as of this encounter
--- OUTSIDE RECORDS SUMMARY | 2024-12-28 22:48 | XMS_ITS | Clinical Summary ---
Author Organization [facility] Address [address] [id number] Care Team Providers Care Assurance Senior Name Role Phone Augustus Patton MD Primary Care Provider + Allergies Active Allergy Reactions Criticality Noted Date Comments Codeine Hives 11/09/2021 Meperidine Hives 05/02/2023 Morphine Hives 07/29/2021 Butorphanol Hives 07/29/2021 Ketorolac Tromethamine Hives 07/29/2021 Medications esomeprazole (nexIUM) 40 MG capsule Take 1 capsule by mouth Every Morning Before Breakfast. 30 capsule 2 10/28/19 23 Active pioglitazone (Actos) 45 MG tabletIndications:Type 2 diabetes mellitus with hyperglycemia, with long-term current use of insulin Take 1 tablet by mouth Daily. 30 tablet 11 03/20/20 23 Active EPINEPHrine (EPIPEN) 0.3 MG/0.3ML solution auto-injector injection 0.3 mL. Active escitalopram (Lexapro) 20 MG tabletIndications:Gene ralized anxiety disorder Take 1 tablet by mouth Daily. 90 tablet 3 08/01/19 24 Active aspirin 81 MG EC tablet Take 1 tablet by mouth Daily. 08/22/19 24 Active dutasteride (AVODART) 0.5 MG capsuleIndications:[place] ign prostatic hyperplasia with urinary frequency TAKE 1 CAPSULE BY MOUTH ONCE DAILY 90 capsule 11 10/09/19 24 Active naloxone (NARCAN) 4 MG/0.1ML nasal spray Call 911. Don't prime. [place] in 1 nostril for overdose. Repeat in 2-3 minutes in other nostril if no or minimal breathing/r esponsivene ss. 2 each 03/14/20 24 Active lisinopril (PRINIVIL,ZESTRIL) 40 MG tabletIndications:Esse ntial hypertension Take 1 tablet by mouth Daily. 90 tablet 3 05/02/19 25 Active labetalol (NORMODYNE) 100 MG tabletIndications:Esse ntial hypertension Take 1 tablet by mouth 2 (Two) Times a Day. as directed 60 tablet 05/02/19 25 Active amLODIPine (NORVASC) 10 MG tabletIndications:Esse ntial hypertension Take 1 tablet by mouth 2 (Two) Times a Day. 180 tablet 1 05/02/19 25 Active albuterol sulfate HFA 108 (90 Base) MCG/ACT inhaler Inhale 2 puffs Every 4 (Four) Hours As Needed for Wheezing. 18 g 5 05/02/19 25 Active Trelegy Ellipta 100-62.5-25 MCG/ACT inhalerIndications:Chr onic obstructive pulmonary disease, unspecified COPD type Inhale 1 puff Daily. 1 each 08/24/19 25 Active gabapentin (NEURONTIN) 300 MG capsuleIndications:Chr onic pain due to trauma,Chronic neuropathic pain Take 1 capsule by mouth 3 (Three) Times a Day. 90 capsule 5 08/24/19 25 Active rosuvastatin (Crestor) 10 MG tabletIndications:Type 2 diabetes mellitus with hyperglycemia, with long-term current use of insulin Take 1 tablet by mouth Daily. 90 tablet 3 11/19/19 25 Active levoFLOXacin (LEVAQUIN) 750 MG tablet Take 1 tablet by mouth Daily. 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 14 capsule 12/25/19 25 Active ALPRAZolam (XANAX) 1 MG tabletIndications:Anxi ety Take 1 tablet by mouth 2 (Two) Times a Day As Needed for Anxiety. 60 tablet 12/27/19 25 Active ALPRAZolam (XANAX) 1 MG tabletIndications:Anxi ety Take 1 tablet by mouth 2 (Two) Times a Day As Needed for Anxiety. 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,Chronic pain due to trauma Take 2 tablets by mouth Every 6 (Six) Hours As Needed for Moderate Pain, 240 tablet 11/19/19 25 025 Discontin ued(Reord er) Active Problems Problem Noted Date Diagnosed Date Occipital stroke 11/28/2024 Assessment & Plan (11/28/2024 2:49 PM EDT): Patient was provided documentation of his diagnosis and a written prescription which has been scanned into the chart for an adjustable bed due to persistence of impaired mobility related to CVA Impaired mobility 11/28/2024 History of spinal cord injury 09/01/2023 Generalized anxiety disorder 04/30/2022 Assessment & Plan (04/30/2022 9:19 AM EST): Anxiety has improved with use of Lexapro. Prescription given to the patient which she will take for 1 full year before revisiting the diagnosis Chronic neuropathic pain 07/29/2021 Assessment & Plan (05/03/2024 7:38 AM EST): Orders: gabapentin (NEURONTIN) 300 MG capsule; Take 1 capsule by mouth 3 (Three) Times a Day. 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 Continue current treatment regimen. Diabetes will be reassessed in 3 months Assessment & Plan (05/03/2024 7:38 AM EST): Orders: Hemoglobin A1c; Future Lipid Panel; Future Assessment & Plan (01/30/2023 2:43 PM EDT): Diabetes is worsening. Medication changes per orders. Diabetes will be reassessed in 3 months. Patient will stop Novolin 70/30 in favor of Soliqua. Samples given. Start at 15 units and uptitrate for goal fasting glucose of 100. Assessment & Plan (07/28/2022 4:27 PM EDT): Diabetes is improving with treatment. Dietary recommendations for ADA diet. Restart insulin at reduced dose Diabetes will be reassessed in 3 months. Assessment & Plan (04/30/2022 9:19 AM EST): Improved but not at goal. In the past patient used Victoza which lowered blood sugar but also had GI side effects of malodorous belching. We will use a trial of Ozempic as I do believe patient would benefit from this if tolerated Essential hypertension 07/29/2021 Assessment & Plan (11/28/2024 2:49 PM EDT): Hypertension is stable and controlled Continue current treatment regimen. Blood pressure will be reassessed in 6 months. Assessment & Plan (05/03/2024 7:38 AM EST): Orders: lisinopril (PRINIVIL,ZESTRIL) 40 MG tablet; Take 1 tablet by mouth Daily. labetalol (NORMODYNE) 100 MG tablet; Take 1 tablet by mouth 2 (Two) Times a Day. as directed amLODIPine (NORVASC) 10 MG tablet; Take 1 tablet by mouth 2 (Two) Times a Day. Assessment & Plan (07/28/2022 4:27 PM EDT): Hypertension is improving with lifestyle modifications. Continue current treatment regimen. Dietary sodium restriction. Stop smoking. Continue current medications. Blood pressure will be reassessed in 3 months. Assessment & Plan (04/30/2022 9:18 AM EST): Not at goal. Add spironolactone 25 mg. Benign prostatic hyperplasia with urinary freque ncy 07/29/2021 Assessment & Plan (05/03/2024 7:38 AM EST): Panlobular emphysema 07/29/2021 Cigarette smoker 07/29/2021 Class 2 severe obesity due t o excess calories with serious comorbidity and body mass index (BMI) of 35.0 to 35.9 in adult 07/29/2021 Encounters Date Type Department Care Team Description 12/23/2024 External PBMM Data [facility] CALL CENTER [address] [place] [phone] Pharmacy, Payor Data 11/28/2024 1:45 PM EDT Office Visit [facility] [address] [place] [address] Augustus Patton MD Type 2 diabetes mellitus with hyperglycemia, with long-term current use of insulin (Primary Dx); Occipital stroke; Impaired mobility; Colon cancer screening; Need for prophylactic vaccination against Streptococcus pneumoniae (pneumococcus); Essential hypertension 11/28/2024 Travel from Last 3 Months Immunizations Immunization Administration Dates Next Due COVID-19 (LULA) 06/11/2020 COVID-19 (MODERNA) 1st,2nd,3 rd Dose Monovalent 04/07/2021 COVID-19 (PFIZER) BIVALENT 12+YRS 01/28/2022 Flu Vaccine Quad PF >36MO 01/14/2016 Fluzone >6mos 02/01/2024 Fluzone (or Fluarix & Flulav al for VFC) >6mos 01/30/2023,01/28/2022,01/14/2016 Influenza TIV (IM) 02/22/2008 Influenza, Unspecified 01/28/2022 PCV21 (CAPVAXIVE) 11/28/2024 Family History Medical History Relation Name Comments Hypertension Father Hypertension Mother Relation Name Status Comments Father Alive Mother Alive Social History Tobacco Use Types Packs/Day Years Used Date Smoking Tobacco: Former Cigarettes 2 30 0 06/15/1992 - 06/15/2022 Smokeless Tobacco: Never Tobacco Cessation:Counseling Given: Not Answered Alcohol Use Standard Drinks/Week Comments Defer 0 [...] on file Sexual Orientation Not on file Last Filed Vital Signs Vital Sign Reading [...] Mass Index 35.45 11/28/2024 1:47 PM EDT Plan of Treatment Upcoming Encounters Date Type Department Care Team (Late st Contact Info) Description 03/04/2025 3:00 PM EST Office Visit [facility] [address] [place] [address] Augustus Patton MD [address] [facility] [address] [place], [place] [phone] Health Maintenance Due Date Last Done Comments DIABETIC EYE EXAM 12/27/1977 DIABETIC FOOT EXAM 12/27/1977 URINE MICROALBUMIN-CREATININ E RATIO (uACR) 12/27/1977 Hepatitis B (1 of 3 - 19+ 3- dose series) 12/27/1986 TDAP/TD VACCINES (1 - Tdap) 12/27/1986 COLON CANCER SCREENING 5 YEA R SIGMOIDOSCOPY 12/27/2012 COLONOSCOPY 12/27/2012 CT COLONOGRAPHY 12/27/2012 FECAL OCCULT BLOOD TEST 12/27/2012 FIT Testing (1 year) 12/27/2012 ZOSTER VACCINE (1 of 2) 12/27/2017 LUNG CANCER SCREENING 03/07/2020 03/07/2019 COLOGUARD 07/18/2021 07/18/2018 COLORECTAL CANCER SCREENING 07/18/2021 HEPATITIS C SCREENING 07/29/2021 INFLUENZA VACCINE 11/01/2024 02/01/2024, , 01/28/2022, Additional history exists ANNUAL WELLNESS VISIT 05/02/2025 05/02/2024 , 05/02/2024, 01/30/2023, Additional history exists HEMOGLOBIN A1C 05/31/2025 11/28/2024, 05/2 06/2024, 02/01/2024, Additional history exists Pneumococcal Vaccine 50+ Completed 11/28/2024 Procedures Procedure Name Priority Date/Time Associated Diagnosis Comments POCT GLYCOSYLATED HEMOGLOBIN (HGB A1C) Routine 11/28/2024 1:52 PM EDT Type 2 diabetes mellitus with hyperglycemia, with long-term current use of insulin SCANNED - LABS 11/28/2024 SCANNED - LABS 11/28/2024 from Last 3 Months Results * (ABNORMAL) POC Glycosylated Hemoglobin (Hb A1C) (11/28/2024 1:52 PM EDT) Hemoglobin A1C 7.5(A) 4.5 - 5.7 % [facility] Lot Number [id number] [facility] Expiration Date 07/23/2026 [facility] Blood 11/28/2024 1:52 PM EDT Augustus Patton MD POINT OF CARE TEST ORDER TRES Final Result [facility]
[address] [place] [address], * LABS SCANNED (11/28/2024) Only the most recent of2 resultswithin the time period is included. [facility] Onbase LAB BLOOD ORDERABLES Final Re sult from Last 3 Months Insurance [facility] MEDICARE ADVANTAGE HMO Care Teams Assurance Senior Relationship Specialty Start Date End Date Augustus Patton MD [address] [place] [address] PCP - General Family Medicine 07/29/21
[2024-12-28 22:50] VITALS: BP 127/67; PULSE 76; RESP 16; O2SAT 98
--- NOTE | 2024-12-28 22:57 | ED_ITS ---
Discharge Plan Disposition Patient Disposition: Home, Self-Care Prescriptions Prescriptions: New methocarbamol 500 mg tablet 1,000 mg PO Q6H PRN (Reason: pain) Qty: 30 0RF No Action methadone 10 mg tablet 20 mg PO Q6H 30 Days lisinopril 40 mg tablet 40 mg PO DAILY 30 Days labetalol 100 mg tablet 100 mg PO BID 30 Days amlodipine 10 mg tablet 10 mg PO DAILY 30 Days gabapentin 300 mg capsule 300 mg PO TID 30 Days alprazolam 1 mg tablet 1 mg PO BIDP PRN (Reason: Anxiety) 15 Days dutasteride 0.5 mg capsule 0.5 mg PO DAILY 30 Days albuterol sulfate 18 GM HFA aerosol inhaler 2 puffs IH Q4HP PRN (Reason: Shortness Of Breath Or Wheezing) escitalopram oxalate 20 mg tablet 20 mg PO DAILY Novolin 70-30 FlexPen U-100 100 unit/mL (70-30) insulin pen 30 unit SQ BID Trelegy Ellipta 100-62.5-25 mcg Blister With Device 1 inh inhalation DAILY 30 Days Qty: 60 0RF oseltamivir [Tamiflu] 75 mg Capsule 75 mg PO BID 2 Days Qty: 3 0RF levofloxacin 750 mg Tablet 750 mg PO 1100 2 Days Qty: 2 0RF ipratropium-albuterol 0.5 mg-3 mg(2.5 mg base)/3 mL Solution For Nebulization 3 ml inhalation Q6HP PRN (Reason: Shortness Of Breath Or Wheezing) Qty: 180 0RF Referrals Follow up/Referrals: Augustus Patton MD [Primary Care Provider, Medical] - See instructions Activity Restrictions/Add. Instructions Additional Instructions/Restrictions: Recommend following up with your PCP for reassessment and for changes to your blood pressure medications. Please take Tylenol and ibuprofen as needed for pain. I also sent a prescription for muscle relaxer. Clinical Impressions Clinical Impression: Rib pain on left side, Hypertensive urgency, Trauma Print Language Print Language: Wolof Discharge ED Provider: Sondra Dick General Adult HPI <Sondra Dick DO - Last Filed: 12/29/24 00:32> General Chief complaint: Chest Pain Stated complaint: AO 12/28/24 1600, fell out of golf cart, side pain Time Seen by Provider: 12/28/24 22:45 Mode of Arrival: Wheelchair Source of Information: Patient Description of Symptoms (Recalled from ER Triage Doc. by RN): Pt presents for left sided chest pain that began after falling out of golft cart earlier today. Pt reports to rolling out of the side and landing on his left ribs. Pt reports no LOC, reports to taking blood thinner due to A-fib. Pt denies any other comlaints at this time. History of Present Illness HPI narrative: Patient is a 59-year-old gentleman with a past medical history of hypertension, diabetes, COPD, high cholesterol who presented to the emergency department with left-sided chest pain after falling out of his golf cart. Patient states that he did not hit his head, did not lose consciousness. Patient states that he takes a daily aspirin but is not on any other blood thinners. Patient is reporting left-sided chest wall pain that is significant in nature. Patient denies any other abdominal pain. Patient denies any shortness of breath. Patient denies any nausea vomiting or diarrhea. Patient denies any headache or vision changes. Patient denies any other neurologic symptoms. Patient states that he has no function of his right lower extremity. Related Data Home Medications ?Medication ?Instructions ?Recorded ?Confirmed alprazolam 1 mg tablet 1 mg PO BIDP PRN Anxiety 15 days 10/12/17 05/05/24 amlodipine 10 mg tablet 10 mg PO DAILY 30 days 10/1205/05/24 dutasteride 0.5 mg capsule 0.5 mg PO DAILY 30 days 03/2005/06/24 gabapentin 300 mg capsule 300 mg PO TID 30 days 05/06/24 labetalol 100 mg tablet 100 mg PO BID 30 days 05/05/24 lisinopril 40 mg tablet 40 mg PO DAILY 30 days 10/1205/05/24 methadone 10 mg tablet 20 mg PO Q6H 30 days 8 05/06/24 albuterol sulfate 90 mcg/actuation 2 puffs IH Q4HP PRN Shortness Of 03/07/19 05/05/24 aerosol inhaler Breath Or Wheezing escitalopram oxalate 20 mg tablet 20 mg PO DAILY 05/0505/05/24 insulin NPH-regular 70-30 U-100 30 unit SQ BID 5 05/06/24 insulin 100 unit/mL subcutaneous pen (Novolin 70-30 FlexPen U-100 Insulin) Previous Rx's ?Medication ?Instructions ?Recorded fluticasone fur. 100 mcg-umeclid 1 inh inhalation GIL Y 30 days #60 05/08/24 62.5 mcg-vilant 25 mcg ea inhalat.powder (Trelegy Ellipta) ipratropium 0.5 mg-albuterol 3 mg 3 ml inhalation Q6HP PRN Shortness 05/08/24 (2.5 mg base)/3 mL nebulization Of Breath Or Wheezing #180 mL soln levofloxacin 750 mg tablet 750 mg PO 1100 2 days #2 ta bs 05/08/24 oseltamivir 75 mg capsule (Tamiflu) 75 mg PO BID 2 day s #3 caps 05/08/24 methocarbamol 500 mg tablet 1,000 mg (2 x 500 mg) PO Q 6H PRN 12/29/24 pain #30 tabs Allergies Allergy/AdvReac Type Severity Reaction Status Date / Time butorphanol (From STADOL) Allergy Unknown UNKNOWN Verified 05/05/24 17:47 ketorolac (From TORADOL) Allergy Unknown UNKNOWN Verified 05/05/24 17:47 [facility] <Sondra Dick, DO - Last Filed: 12/29/24 00:32> [facility] Disclaimer: The information contained in this section may have been updated after the patient was seen, as this information can be updated by other users. Medical History (Updated 12/29/24 @ 02:29 by Cristino Meyers MD) Acute CVA (cerebrovascular accident) History of depression History of anxiety History of hypertension History of diabetes mellitus History of CVA (cerebrovascular accident) Mycoplasma pneumonia H1N1 influenza with pneumonia Acute respiratory failure with hypoxia Social History Smoking Status: Current every day smoker tobacco type: cigarettes packs per day: 2 second hand exposure: Yes alcohol intake: never substance use type: denies use current occupational status: disabled Travel in the last 8 weeks?: None household members: spouse housing: house current occupational exposures/hazards: No caffeine: Yes Have you lived/traveled outside [place] in past 30 days?: No Contact w/someone who lives/traveled outside [place] past 30 days?: No Exposure to someone with infectious disease in past 14 days?: No Do you have a fever (greater than 100.4 F or 38 C)?: No Have you tested positive for COVID-19?: No Exposed to someone with COVID-19 in past 14 days?: No Do you have a sore throat?: No Do you have a cough?: No Do you have any weakness?: No Do you have any diarrhea?: No Are you experiencing any unusual bleeding?: No Do you have any muscle aches/pain?: No Do you have any abdominal pain?: No Are you experiencing loss of taste or smell?: No Other Medical History Have you received the Flu Vaccine for this season: No Have you received the Pneumonia Vaccine: No <Sondra Dick, - Last Filed: 12/29/24 00:32> ROS Obtained: Yes All systems reviewed & no additional complaints except as documented and Yes Systems reviewed as appropriate & no additional complaints except as documented Physical Exam <Sondra Dick DO - Last Filed: 12/29/24 00:32> General General appearance: alert and in no apparent distress Head Head exam: atraumatic, normocephalic and normal inspection Eye Eye exam: Present normal appearance, PERRL and EOMI; Absent scleral icterus ENT ENT exam: Present normal exam and normal external ear exam Neck Neck exam: Present normal inspection and full ROM Chest Chest inspection: Present normal inspection and symmetric chest wall rise Respiratory Respiratory exam: Present normal lung sounds bilaterally; Absent respiratory distress or wheezes Cardiovascular Cardiovascular exam: Present regular rate, normal rhythm, normal heart sounds and other (L sided chest wall pain) Abdominal Exam Abdominal exam: Present soft, distention and tenderness (L sided abdominal tenderness); Absent guarding or rebound Extremities Exam Extremities exam: Present normal inspection and full ROM Back Exam Back exam: Present normal inspection and full ROM Neurological Exam Neurological exam: Present alert, oriented X3 and CN II-XII intact Psychiatric Psychiatric exam: Present normal affect and normal mood Skin Skin exam: Present warm and dry Medical Decision Making <Sondra Dick DO - Last Filed: 12/29/24 00:32> Medical Records Medical records reviewed: Yes I reviewed the patient's medical records. Screening: Per USPSTF and CDC recommendations, given the prevalence of disease in our region, it is our hospital?s policy to screen for HIV and viral Hepatitis for all patients aged 18 and over and those with ongoing risk factors. Sp Inquiry Pt receiving controlled substance: No Vital Signs: 12/28/24 22:45 12/28/24 22:50 12/28/24 23:30 Temperature 97.8 F Temperature Source Oral Pulse Rate 76 94 H Pulse Rate [Radial] 105 H Respiratory Rate 20 16 12 Blood Pressure 127/67 229/113 H Blood Pressure [Right Arm] 244/115 H Blood Pressure Mean Blood Pressure Mean [Right Arm] 158 Blood Pressure Position Sitting Blood Pressure Position [Right Arm] Supine 02 Sat by Pulse Oximetry 95 98 95 Oxygen Delivery Method Room Air Room Air 12/28/24 23:41 12/29/24 00:30 12/29/24 00:30 Temperature Temperature Source Pulse Rate 89 92 H Pulse Rate [Radial] Respiratory Rate 15 18 Blood Pressure 255/120 H 223/108 H 223/108 H Blood Pressure [Right Arm] Blood Pressure Mean 146 Blood Pressure Mean [Right Arm] Blood Pressure Position Blood Pressure Position [Right Arm] 02 Sat by Pulse Oximetry 96 97 96 Oxygen Delivery Method 12/29/24 00:40 12/29/24 00:42 12/29/24 00:50 Temperature Temperature Source Pulse Rate 83 Pulse Rate [Radial] Respiratory Rate 14 18 Blood Pressure 223/108 H 226/100 H 206/105 H Blood Pressure [Right Arm] Blood Pressure Mean Blood Pressure Mean [Right Arm] Blood Pressure Position Blood Pressure Position [Right Arm] 02 Sat by Pulse Oximetry 88 L Oxygen Delivery Method 12/29/24 01:00 12/29/24 01:05 12/29/24 01:10 Temperature Temperature Source Pulse Rate 78 81 81 Pulse Rate [Radial] Respiratory Rate 11 L 16 13 Blood Pressure 223/107 H 217/107 H 221/104 H Blood Pressure [Right Arm] Blood Pressure Mean Blood Pressure Mean [Right Arm] Blood Pressure Position Blood Pressure Position [Right Arm] 02 Sat by Pulse Oximetry 93 L 95 95 Oxygen Delivery Method 12/29/24 01:20 12/29/24 01:30 Temperature Temperature Source Pulse Rate 86 Pulse Rate [Radial] Respiratory Rate 13 17 Blood Pressure 203/111 H 214/97 H Blood Pressure [Right Arm] Blood Pressure Mean Blood Pressure Mean [Right Arm] Blood Pressure Position Blood Pressure Position [Right Arm] 02 Sat by Pulse Oximetry 96 Oxygen Delivery Method Lab Data Lab results reviewed: Yes I reviewed the patient's lab results. Lab Results 12/28/24 22:58: WBC 14.3 H, RBC 6.04, Hgb 17.2, Hct 52.4 H, MCV 86.8, MCH 28.5, MCHC 32.8, RDW 14.6, Plt Count 249, MPV 9.7, Neut % (Auto) 87.7 H, Lymph % (Auto) 8.9 L, [place] % (Auto) 2.3, Eos % (Auto) 0.1, Baso % (Auto) 0.4, Neut # (Auto) 12.5 H, Lymph # (Auto) 1.3, [place] # (Auto) 0.3, Eos # (Auto) 0.0, Baso # (Auto) 0.1, PT 11.4, INR 1.03, Sodium 135 L, Potassium 4.1, Chloride 95 L, C arbon Dioxide 34 H, Anion Gap 10.1, BUN 14, Creatinine 0.70, Estimated Creat Clear 179, Estimated GFR 116, Est GFR ( Amer) 141, Glucose 238 H, Calcium 8.9, Magnesium 1.7, Total Bilirubin 0.6, AST 31, ALT 16, Alkaline Phosphatase 102, Troponin I < 0.01, Total Protein 8.4 H D, Albumin 3.9, Globulin 4.5 H, A lbumin/Globulin Ratio 0.9 L, Lipase 85 12/28/24 22:58 12/28/24 22:58 Orders (Tests/Meds): ED MEDICATIONS Discontinued Medications Generic Name Dose Route Start Last Admin Trade Name Randyq PRN Reason Stop Dose Admin Amlodipine Besylate 10 mg 12/29/24 00:41 12/29/24 00:57 Amlodipine 10mg Tablet PO 12/29/24 00:42 10 mg ONCE ONE Administration Fentanyl Citrate 75 mcg 12/28/24 23:27 12/28/24 23:41 Fentanyl 100mcg/2ml Vial IV 12/28/24 23:28 75 mcg ONCE ONE Administration Iopamidol 80 ml 12/29/24 00:22 12/29/24 00:24 Iopamidol-370 (76%);100ml Bottle IV 12/29/24 00:23 80 ml ONCE ONE Administration Labetalol HCl 10 mg 12/28/24 23:38 12/29/24 00:40 Labetalol 5mg/Ml 20ml Mdv IV 12/28/24 23:39 10 mg ONCE ONE Administration Labetalol HCl 100 mg 12/29/24 00:41 12/29/24 00:57 Labetalol 100mg Tablet PO 12/29/24 00:42 100 mg ONCE ONE Administration Morphine Sulfate 4 mg 12/28/24 22:45 12/28/24 23:01 Morphine 2mg/Ml Syringe IV 12/28/24 22:46 4 mg ONCE ONE Administration Sodium Chloride 10 ml 12/29/24 00:22 12/29/24 00:24 Sodium Chloride 0.9% 10ml Syr (Rad Only) IV 12/29/24 00:23 10 ml ONCE ONE Administration Sodium Chloride 50 ml 12/29/24 00:22 12/29/24 00:24 0.9 % Sodium Chloride 50 Ml Vial IV 12/29/24 00:23 50 ml ONCE ONE Administration ORDERS Category Date Time Status CT angio abdomen pelvis Stat Cat Scan 12/28/24 22:[address] angio chest - dissection Stat Cat Scan 12/28/24 22:[address] cervical spine wo con Stat Cat Scan 12/28/24 22:[address] head/brain wo con Stat Cat Scan 12/28/24 22:[address] lumbar spine wo con Stat Cat Scan 12/28/24 23:[address] thoracic spine wo con Stat Cat Scan 12/28/24 23:28 Completed CBC w/Auto Diff [Complete Blood Count Auto Diff] Stat Lab 12/28/24 22:58 Completed CMP [Comprehensive Metabolic Panel] Stat Lab 12/28/24 22:58 Completed Lipase Stat Lab 12/28/24 22:58 Completed Magnesium Stat Lab 12/28/24 22:58 Completed Prothrombin Time INR Stat Lab 12/28/24 22:58 Completed Trop I [Troponin I] Stat Lab 12/28/24 22:58 Completed Medical Decision Narrative: Patient is a gentleman with a past medical history of hypertension, high cholesterol, diabetes who presented to the emergency department with left-sided chest wall pain after falling out of his golf cart earlier today. Patient states that he did not hit his head did not lose consciousness. On arrival, patient was significantly hypertensive vital signs were otherwise unremarkable. Differential includes but not limited to: Intracranial ischemia, intracranial hemorrhage, aortic dissection, other intrathoracic pathology, rib fractures, intra-abdominal pathology, amongst others. Patient's labs were reviewed and interpreted by myself: CBC showed mild leukocytosis of 14, hemoglobin was stable. INR was 1.03. CMP was unremarkable. Initial troponin less than 0.01. Patient was given 4 of morphine for pain control as well as 10 of labetalol for significant hypertension. Patient was sent for emergent scans of his head chest and abdomen. My interpretation, patient had no acute intracranial hemorrhage, pending formal radiology read. Was signed out to the oncoming provider Dr. Cristino Meyers pending further lab workup and CT scans and final disposition. <Cristino Meyers MD - Last Filed: 12/29/24 02:33> Vital Signs: 12/28/24 22:45 12/28/24 22:50 12/28/24 23:30 Temperature 97.8 F Temperature Source Oral Pulse Rate 76 94 H Pulse Rate [Radial] 105 H Respiratory Rate 20 16 12 Blood Pressure 127/67 229/113 H Blood Pressure [Right Arm] 244/115 H Blood Pressure Mean Blood Pressure Mean [Right Arm] 158 Blood Pressure Position Sitting Blood Pressure Position [Right Arm] Supine 02 Sat by Pulse Oximetry 95 98 95 Oxygen Delivery Method Room Air Room Air 12/28/24 23:41 12/29/24 00:30 12/29/24 00:30 Temperature Temperature Source Pulse Rate 89 92 H Pulse Rate [Radial] Respiratory Rate 15 18 Blood Pressure 255/120 H 223/108 H 223/108 H Blood Pressure [Right Arm] Blood Pressure Mean 146 Blood Pressure Mean [Right Arm] Blood Pressure Position Blood Pressure Position [Right Arm] 02 Sat by Pulse Oximetry 96 97 96 Oxygen Delivery Method 12/29/24 00:40 12/29/24 00:42 12/29/24 00:50 Temperature Temperature Source Pulse Rate 83 Pulse Rate [Radial] Respiratory Rate 14 18 Blood Pressure 223/108 H 226/100 H 206/105 H Blood Pressure [Right Arm] Blood Pressure Mean Blood Pressure Mean [Right Arm] Blood Pressure Position Blood Pressure Position [Right Arm] 02 Sat by Pulse Oximetry 88 L Oxygen Delivery Method 12/29/24 01:00 12/29/24 01:05 12/29/24 01:10 Temperature Temperature Source Pulse Rate 78 81 81 Pulse Rate [Radial] Respiratory Rate 11 L 16 13 Blood Pressure 223/107 H 217/107 H 221/104 H Blood Pressure [Right Arm] Blood Pressure Mean Blood Pressure Mean [Right Arm] Blood Pressure Position Blood Pressure Position [Right Arm] 02 Sat by Pulse Oximetry 93 L 95 95 Oxygen Delivery Method 12/29/24 01:20 12/29/24 01:30 Temperature Temperature Source Pulse Rate 86 Pulse Rate [Radial] Respiratory Rate 13 17 Blood Pressure 203/111 H 214/97 H Blood Pressure [Right Arm] Blood Pressure Mean Blood Pressure Mean [Right Arm] Blood Pressure Position Blood Pressure Position [Right Arm] 02 Sat by Pulse Oximetry 96 Oxygen Delivery Method Lab Data Lab Results 12/28/24 22:58: WBC 14.3 H, RBC 6.04, Hgb 17.2, Hct 52.4 H, MCV 86.8, MCH 28.5, MCHC 32.8, RDW 14.6, Plt Count 249, MPV 9.7, Neut % (Auto) 87.7 H, Lymph % (Auto) 8.9 L, [place] % (Auto) 2.3, Eos % (Auto) 0.1, Baso % (Auto) 0.4, Neut # (Auto) 12.5 H, Lymph # (Auto) 1.3, [place] # (Auto) 0.3, Eos # (Auto) 0.0, Baso # (Auto) 0.1, PT 11.4, INR 1.03, Sodium 135 L, Potassium 4.1, Chloride 95 L, C arbon Dioxide 34 H, Anion Gap 10.1, BUN 14, Creatinine 0.70, Estimated Creat Clear 179, Estimated GFR 116, Est GFR ( Amer) 141, Glucose 238 H, Calcium 8.9, Magnesium 1.7, Total Bilirubin 0.6, AST 31, ALT 16, Alkaline Phosphatase 102, Troponin I < 0.01, Total Protein 8.4 H D, Albumin 3.9, Globulin 4.5 H, A lbumin/Globulin Ratio 0.9 L, Lipase 85 Orders (Tests/Meds): ED MEDICATIONS Discontinued Medications Generic Name Dose Route Start Last Admin Trade Name Freq PRN Reason Stop Dose Admin Amlodipine Besylate 10 mg 12/29/24 00:41 12/29/24 00:57 Amlodipine 10mg Tablet PO 12/29/24 00:42 10 mg ONCE ONE Administration Fentanyl Citrate 75 mcg 12/28/24 23:27 12/28/24 23:41 Fentanyl 100mcg/2ml Vial IV 12/28/24 23:28 75 mcg ONCE ONE Administration Iopamidol 80 ml 12/29/24 00:22 12/29/24 00:24 Iopamidol-370 (76%);100ml Bottle IV 12/29/24 00:23 80 ml ONCE ONE Administration Labetalol HCl 10 mg 12/28/24 23:38 12/29/24 00:40 Labetalol 5mg/Ml 20ml Mdv IV 12/28/24 23:39 10 mg ONCE ONE Administration Labetalol HCl 100 mg 12/29/24 00:41 12/29/24 00:57 Labetalol 100mg Tablet PO 12/29/24 00:42 100 mg ONCE ONE Administration Morphine Sulfate 4 mg 12/28/24 22:45 12/28/24 23:01 Morphine 2mg/Ml Syringe IV 12/28/24 22:46 4 mg ONCE ONE Administration Sodium Chloride 10 ml 12/29/24 00:22 12/29/24 00:24 Sodium Chloride 0.9% 10ml Syr (Rad Only) IV 12/29/24 00:23 10 ml ONCE ONE Administration Sodium Chloride 50 ml 12/29/24 00:22 12/29/24 00:24 0.9 % Sodium Chloride 50 Ml Vial IV 12/29/24 00:23 50 ml ONCE ONE Administration ORDERS Category Date Time Status CT angio abdomen pelvis Stat Cat Scan 12/28/24 22:[address] angio chest - dissection Stat Cat Scan 12/28/24 22:[address] cervical spine wo con Stat Cat Scan 12/28/24 22:[address] head/brain wo con Stat Cat Scan 12/28/24 22:[address] lumbar spine wo con Stat Cat Scan 12/28/24 23:[address] thoracic spine wo con Stat Cat Scan 12/28/24 23:28 Completed CBC w/Auto Diff [Complete Blood Count Auto Diff] Stat Lab 12/28/24 22:58 Completed CMP [Comprehensive Metabolic Panel] Stat Lab 12/28/24 22:58 Completed Lipase Stat Lab 12/28/24 22:58 Completed Magnesium Stat Lab 12/28/24 22:58 Completed Prothrombin Time INR Stat Lab 12/28/24 22:58 Completed Trop I [Troponin I] Stat Lab 12/28/24 22:58 Completed Medical Decision Narrative: Patient is a gentleman with a past medical history of hypertension, high cholesterol, diabetes who presented to the emergency department with left-sided chest wall pain after falling out of his golf cart earlier today. Patient states that he did not hit his head did not lose consciousness. On arrival, patient was significantly hypertensive vital signs were otherwise unremarkable. Differential includes but not limited to: Intracranial ischemia, intracranial hemorrhage, aortic dissection, other intrathoracic pathology, rib fractures, intra-abdominal pathology, amongst others. Patient's labs were reviewed and interpreted by myself: CBC showed mild leukocytosis of 14, hemoglobin was stable. INR was 1.03. CMP was unremarkable. Initial troponin less than 0.01. Patient was given 4 of morphine for pain control as well as 10 of labetalol for significant hypertension. Patient was sent for emergent scans of his head chest and abdomen. My interpretation, patient had no acute intracranial hemorrhage, pending formal radiology read. Was signed out to the oncoming provider Dr. Cristino Meyers pending further lab workup and CT scans and final disposition. Luigi WAHL: I assumed care of the patient at the time of handoff from the prior provider. On reassessment after patient was administered his home blood pressure medications, his systolics have been below 200. He reports some continued pain in his left ribs, but was sleeping when I went to reevaluate him. His CT imaging was independently turbid by me and showed no evidence of acute fracture or dislocation, intracranial bleeding, intra-abdominal hemorrhage etc. These findings were communicated with patient and he was discharged in stable condition. He was encouraged to follow-up with the PCP for blood pressure management. Critical Care <Sondra Dick, DO - Last Filed: 12/29/24 00:32> Critical Care Time Critical Care Time: No
[2024-12-28] MEDS: MORPHINE 2MG/ML SYRINGE 4 MG IV (23:01)
[2024-12-28 23:08] LABS: Hematocrit 52.4 % (42.0-52.0); Hemoglobin 17.2 g/dL (14.1-18.0); Immature Granulocytes % 0.6 %; Mean Corpuscular HGB Conc 32.8 g/dL (31.8-35.4); Mean Corpuscular Hemoglobin 28.5 pg (27.0-31.2); Mean Corpuscular Volume 86.8 fl (80-94); Nucleated Red Blood Cells % 0 %; Platelet Count 249 K/mm3 (142-424); Red Blood Count 6.04 M/mm3 (4.60-6.20); Red Cell Distribution Width-SD 46.5 fL; White Blood Count 14.3 K/mm3 (4.8-10.8)
[2024-12-28 23:12] LABS: Albumin Level 3.9 g/dl (3.5-5.0); Chloride 95 mmol/L (98-107); Potassium 4.1 mmoL/L (3.5-5.1); Sodium 135 mmol/L (136-145)
[2024-12-28 23:15] LABS: Alanine Aminotransferase 16 U/L (12-78); Albumin/Globulin Ratio 0.9 (1.1-1.8); Alkaline Phosphatase 102 U/L (38-126); Anion Gap 10.1 mEq/L (5-15); Aspartate Amino Transferase 31 U/L (17-59); Bilirubin,Total 0.6 mg/dl (0.2-1.3); Blood Urea Nitrogen 14 mg/dl (9-20); Calcium 8.9 mg/dl (8.4-10.2); Carbon Dioxide 34 mmol/L (22.0-30.0); Creatinine Clearance Estimated 179 mL/min (50-200); Creatinine,Serum 0.70 mg/dl (0.66-1.25); Estimated Glomerular Filt Rate 116 ml/min (>60); GFR (African American) 141 ML/MIN (>60); Globulin 4.5 g/dL (1.3-3.2); Glucose 238 mg/dl (74-100); Lipase 85 U/L (23-300); Total Protein,Serum 8.4 g/dl (6.3-8.2)
[2024-12-28 23:16] LABS: INR 1.03 (0.9-1.1); Magnesium 1.7 mg/dl (1.6-2.3); Prothrombin Time 11.4 seconds (10.1-12.5)
--- NOTE | 2024-12-28 23:26 | HMH.ITSTN ---
After bringing pt to CT scanner pt requested pain meds before scan. After meds were administered by ER nurse pt laid down on CT scanner he yelled out stating that he can't do the scans and that he didn't want to do them. Pt took back to his room and nursing staff notified
--- NOTE | 2024-12-28 23:28 | CT_ITS ---
PROCEDURE INFORMATION: Exam: CT Lumbar Spine Without Contrast Exam date and time: 12/29/2024 12:02 AM Age: 59 years old Clinical indication: Injury or trauma; Fall; Additional info: Fall, pain TECHNIQUE: Imaging protocol: Computed tomography of the lumbar spine without contrast. Radiation optimization: All CT scans at this facility use at least one of these dose optimization techniques: automated exposure control; mA and/or kV adjustment per patient size (includes targeted exams where dose is matched to clinical indication); or iterative reconstruction. COMPARISON: CT LUMBAR SPINE WO CON 12/29/2024 12:02 AM FINDINGS: Bones/joints: No acute fracture. Extensive posterior lumbar fusion from L1 through S1. Additional postsurgical changes in the lower thoracic spine. Multilevel facet joint arthropathy. Osteopenia. Streak artifact from the hardware limits evaluation. Soft tissues: Unremarkable. IMPRESSION: Extensive postsurgical changes. No acute fracture or malalignment
--- NOTE | 2024-12-28 23:28 | CT_ITS ---
PROCEDURE INFORMATION: Exam: CT Thoracic Spine Without Contrast Exam date and time: 12/29/2024 12:02 AM Age: 59 years old Clinical indication: Injury or trauma; Fall; Blunt trauma (contusions or hematomas); Additional info: Fall, back pain TECHNIQUE: Imaging protocol: Computed tomography of the thoracic spine without contrast. Radiation optimization: All CT scans at this facility use at least one of these dose optimization techniques: automated exposure control; mA and/or kV adjustment per patient size (includes targeted exams where dose is matched to clinical indication); or iterative reconstruction. COMPARISON: CT THORACIC SPINE WO CON 12/29/2024 12:02 AM FINDINGS: Bones/joints: Postsurgical changes in lower thoracic upper lumbar spine. No acute fracture or malalignment involving the thoracic spine Soft tissues: Unremarkable. IMPRESSION: No acute thoracic spine fracture.
[2024-12-28 23:30] VITALS: BP 229/113; PULSE 94; RESP 12; O2SAT 95
[2024-12-28 23:41] VITALS: BP 255/120; PULSE 89; RESP 15; O2SAT 96
[2024-12-28] MEDS: FENTANYL 100MCG/2ML VIAL 75 MCG IV (23:41)
[2024-12-28 23:46] LABS: Troponin I < 0.01 ng/ml (0.00-0.034)
[2024-12-29] VITALS (10 sets, daily range): BP systolic 183–226; BP diastolic 89–111; PULSE 78–92; RESP 11–18; TEMP 37.1; O2SAT 88–97
[2024-12-29] MEDS: SODIUM CHLORIDE 0.9% 10ML SYR (RAD ONLY) 10 ML IV (00:24)
[2024-12-29] MEDS: IOPAMIDOL-370 (76%);100ML BOTTLE 80 ML IV (00:24)
[2024-12-29] MEDS: 0.9 % SODIUM CHLORIDE 50 ML VIAL IV (00:24)
[2024-12-29] MEDS: LABETALOL 5MG/ML 20ML MDV 10 MG IV (00:40)
[2024-12-29] MEDS: AMLODIPINE 10MG TABLET 10 MG PO (00:57)
[2024-12-29] MEDS: LABETALOL 100MG TABLET 100 MG PO (00:57)
== END 2024-12-29 02:40 | disposition home or self-care (01) ==
PROVIDERS: Emergency Provider Student in an Organized Health Care Education/Training Program; PCP Family Medicine
DX: R07.81 Pleurodynia (principal); I16.0 Hypertensive urgency; I45.10 Unspecified right bundle-branch block; F17.210 Nicotine dependence, cigarettes, uncomplicated; I10 Essential (primary) hypertension; E78.5 Hyperlipidemia, unspecified; V86.59XA Driver of other special all-terrain or other off-road motor vehicle injured in nontraffic accident, initial encounter
CPT/HCPCS: 70450; 71275; 72125; 72128; 72131; 74174; 80053; 83690; 83735; 84484; 85025; 85610; 93005; 96374; 96375; 99285; J1920; J2270; J3010; Q9967